=== PATIENT | female | born 1950 | race Caucasian/White ===

== ENCOUNTER 2020-09-16 08:24 | Inpatient (IN) ==
[2020-09-16] MEDS ORDERED: ONDANSETRON INJ 2 MG/ML 2 ML VIAL IV STA ×2 (08:52→10:36)
[2020-09-16] MEDS ORDERED: MECLIZINE HCL 25 MG TAB PO STA (09:10)
[2020-09-16] MEDS ORDERED: SODIUM CHLORIDE 0.9% 1000ML 1,000 ML IV SCH (09:11)
[2020-09-16 09:17] LABS: Basophils # (auto) 0.02 K/uL (0-0.2); Basophils % (auto) 0.1 %; Eosinophils # (auto) 0.01 K/uL (0-0.5); Eosinophils % (auto) 0.1 %; Hematocrit (blood only) 41.3 % (37-47); Hemoglobin 14.4 g/dL (12.0-16.0); Immature Granulocytes # (auto) 0.03 K/uL (0.00-0.02); Immature Granulocytes % (auto) 0.2 %; Lymphocytes # (auto) 1.03 K/uL (1.2-3.4); Lymphocytes % (auto) 6.8 %; Mean Corpuscular Hgb Conc 34.9 g/dL (32-36); Mean Corpuscular Volume 100.2 fL (80-100); Mean Platelet Volume 10.6 fL (7.4-10.4); Monocytes # (auto) 0.47 K/uL (0.11-0.59); Monocytes % (auto) 3.1 %; Neutrophils # (auto) 13.53 K/uL (1.4-6.5); Neutrophils % (auto) 89.7 %; Platelet Count 192 K/uL (130-400); RDW Coefficient of Variation 12.1 % (11.5-14.5); RDW Standard Deviation 43.9 fL (36.4-46.3); Red Blood Count 4.12 M/uL (4.2-5.4); White Blood Count 15.09 K/uL (4.8-10.8)
--- NOTE | 2020-09-16 09:28 | CT Scan Report ---
HEAD CT NONCONTRAST CT DOSE: 614.27 mGy.cm HISTORY: dizziness, nausea, fall w/ head trauma, no LOC TECHNIQUE: Multiaxial CT images of the head were performed without the use of intravenous contrast. A utomated exposure control was utilized for this study. A dose lowering technique was utilized adheri ng to the principles of ALARA. Comparison: None. Findings: The paranasal sinuses and mastoid air cells are clear. The calvarium and skull base are int act. There is no mass, hematoma, midline shift, acute infarct. White matter hypodensity is nonspecifi c but suggestive of microvascular ischemic change. The ventricles and sulci demonstrate mild age-rela robert involutional changes. Mild left frontal scalp swelling. Impression: No acute intracranial abnormality. Mild left frontal scalp swelling. ACT 112: Negative or not required by law. Electronically signed by: Julien Castro M.D. 09/16/2020 9:26 AM
[2020-09-16 09:31] LABS: Alanine Aminotransferase 56 U/L (12-78); Albumin Level 3.7 gm/dl (3.4-5.0); Aspartate Aminotransferase 110 U/L (15-37); BUN Creatinine Ratio 17.7 (10-20); Blood Urea Nitrogen 19 mg/dl (7-18); Calcium 9.5 mg/dl (8.5-10.1); Carbon Dioxide 25 mmol/L (21-32); Chloride 96 mmol/L (98-107); Creatinine Clr Calc Pharmacy 36.7 ml/min; Est GFR (African American) 63.6; Est GFR (Non-African American) 54.9; Glucose 193 mg/dl (70-99); Potassium 3.3 mmol/L (3.5-5.1); Sodium 135 mmol/L (136-145)
[2020-09-16 09:35] LABS: Albumin Globulin Ratio 1.1 (0.9-2); Alkaline Phosphatase 122 U/L (45-117); Bilirubin,Total 1.7 mg/dl (0.2-1); Globulin 3.5 gm/dl (2.5-4.0); Total Protein 7.2 gm/dl (6.4-8.2); Troponin I < 0.015 ng/ml (0-0.045)
[2020-09-16] MEDS ORDERED: POTASSIUM CHLORIDE CRTAB 20 MEQ TABCR PO STA (09:48)
--- NOTE | 2020-09-16 10:09 | Emergency Department Note ---
General (ED) Blank Date of Service September 16, 2020 ED Visit Note I personally saw, interviewed, and examined the patient. Patient's case was discussed with Dr. Sharif, ED attending, and I assisted with MDM. Please see attending documentation for full details. Resident Activity Tracking Resident Involvement: Resident Care Provided Care Provided: Adult ED
--- NOTE | 2020-09-16 10:11 | Emergency Department Note ---
History of Present Illness General Chief complaint: Fall Stated complaint: fall/ head pain Time Seen by Provider: 09/16/20 08:39 Source: patient Mode of arrival: EMS Limitations: no limitations History of Present Illness Provider complaint: Dizziness Maximum Pain Intensity: 2 This is a 69-year-old female who presents to the ED with a chief complaint of acute dizziness. The patient states that her symptoms started around 2 AM this morning. She had about 10 episodes of vomiting associated with the vertigo and spinning sensation. She states that she fell and her head hit her head on the wa ll as well. She also reported having 1 black stool this morning. The patient continues to feel dizzy. She states that her symptoms are worse if she moves her head. She still feels nauseated. Denies any visual changes. No focal neurologic deficits. She has had similar episodes in the past and she states that she has had work-ups for this and nothing was ever found. Home Medications Home Medications Medication Instructions Recorded Confirmed Type cyanocobalamin (vitamin B-12) 1,000 mcg PO PM 09/16/20 09/16/20 History [Vitamin B-12] escitalopram oxalate 20 mg PO PM 09/16/20 09/16/20 History folic acid 1 mg PO PM 09/16/20 09/16/20 History levothyroxine 75 mcg PO QAM 09/16/20 09/16/20 History mirtazapine 15 mg PO HS 09/16/20 09/16/20 History Allergies Allergy/AdvReac Type Severity Reaction Status Date / Time No Known Allergies Allergy Unverified 09/16/20 09:39 Past Med/Surg History Social History Smoking Status: Former smoker Preferred Language: Uzbek Feels Safe at Home: Yes Review of Systems A total of 10 systems reviewed and were otherwise negative Physical Exam Vital Signs Vital Signs - 24 hr 09/16/20 08:34 09/16/20 09:29 09/16/20 09:31 Temperature 36.7 C Temperature Source Oral Pulse Rate 103 H 93 H Pulse Rate [Apical] 97 H Pulse Rate from SpO2 Sensor 91 H Pulse Rhythm [Apical] Irregular Respiratory Rate 12 19 14 Respiratory Effort / Characteristics Non-Labored Non-Labored Spontaneous Respiratory Depth Normal Normal Respiratory Pattern Regular Blood Pressure 128/85 135/90 Blood Pressure [Left Arm] 133/87 Blood Pressure Mean 99 107 Blood Pressure Mean [Left Arm] 102 Blood Pressure Position Lying Blood Pressure Position [Left Arm] Sitting Pulse Oximetry 99 97 98 Oxygen Delivery Method Room Air Room Air Sepsis Recent Fever Within 48 Hours No Sepsis New/Unexplained Change in Mental Status No Sepsis Action Taken by Nursing No Action Required 09/16/20 10:00 09/16/20 10:30 09/16/20 11:00 Temperature Temperature Source Pulse Rate 89 108 H 99 H Pulse Rate [Apical] Pulse Rate from SpO2 Sensor 88 99 H 98 H Pulse Rhythm [Apical] Respiratory Rate 17 21 17 Respiratory Effort / Characteristics Respiratory Depth Respiratory Pattern Blood Pressure 127/79 126/81 130/83 Blood Pressure [Left Arm] Blood Pressure Mean 89 97 92 Blood Pressure Mean [Left Arm] Blood Pressure Position Blood Pressure Position [Left Arm] Pulse Oximetry 98 96 97 Oxygen Delivery Method Sepsis Recent Fever Within 48 Hours Sepsis New/Unexplained Change in Mental Status Sepsis Action Taken by Nursing VITAL SIGNS: were reviewed as above. GENERAL:Non-toxic in appearance. SKIN: Warm dry and pink. HEAD: Normocephalic with a contusion to the left frontal area. OROPHARYNX: Is clear and moist NECK: Supple without lymphadenopathy or meningismus. LUNGS: Are clear. HEART: Regular rate and rhythm. ABDOMEN: Soft and nontender. EXTREMITIES: Warm and well perfused. NEUROLOGICALLY: Awake alert and oriented without focal deficit. Cranial nerves 2-12 are intact. There is no pronator drift. Cerebellar testing is within normal limits. There is no nystagmus. There is no facial droop. Speech is clear. Vision is grossly normal. MUSCULOSKELETAL: Good muscle tone. No evidence of trauma. Strength is symmetric. Stool was tested. It was light brown and trace guaiac positive. ALL NURSING NOTES WERE REVIEWED. Course Administered Medications Discontinued Medications Sodium Chloride (Nss 1000ml) 1,000 mls @ 999 mls/hr IV .Q1H1M LILY Stop: 09/16/20 10:11 Last Infusion: 09/16/20 11:03 Dose: 0 mls/hr Documented by: [id number] Admin: 09/16/20 09:25 Dose: 999 mls/hr Documented by: [id number] Lorazepam (Ativan) 1 mg in 2 mls @ 2 mls/min IV NOW STA Stop: 09/16/20 10:37 Last Admin: 09/16/20 11:00 Dose: 2 mls/min Documented by: [id number] Meclizine HCl (Meclizine Hcl 25 Mg Tab) 25 mg PO NOW STA Stop: 09/16/20 09:11 Last Admin: 09/16/20 09:27 Dose: 25 mg Documented by: [id number] Ondansetron HCl (Ondansetron Inj 2 Mg/Ml 2 Ml Vial) 4 mg IV NOW STA Stop: 09/16/20 08:53 Last Admin: 09/16/20 09:27 Dose: 4 mg Documented by: [id number] Ondansetron HCl (Ondansetron Inj 2 Mg/Ml 2 Ml Vial) 4 mg IV NOW STA Stop: 09/16/20 10:37 Last Admin: 09/16/20 11:00 Dose: 4 mg Documented by: [id number] Potassium Chloride (Potassium Chloride 20 Meq Tabcr) 20 meq PO NOW STA Stop: 09/16/20 09:49 Last Admin: 09/16/20 10:15 Dose: 20 meq Documented by: [id number] Medical Decision Making Differential Diagnosis Differential includes acute coronary syndrome, myocardial infarction, CVA, TIA, anemia, infection, pneumonia, UTI, pyelonephritis, poor nutrition, dehydration, electrolyte disturbance,hypoglycemia. Medical Records Attestation: I reviewed the patient's medical records. Home Medications Current Medication List: was personally reviewed by me Laboratory Data Attestation: I reviewed the patient's lab results. Result diagrams: 09/16/20 08:43 09/16/20 08:43 Lab Results 09/16/20 09/16/20 09/16/20 Range/Units 08:43 08:43 11:20 WBC 15.09 H (4.8-10.8) K/uL RBC 4.12 L (4.2-5.4) M/uL Hgb 14.4 (12.0-16.0) g/dL Hct 41.3 (37-47) % MCV 100.2 H (80-100) fL MCH 35.0 H (25-34) pg MCHC 34.9 (32-36) g/dL RDW Std Deviation 43.9 (36.4-46.3) fL RDW Coeff of Alfredo 12.1 (11.5-14.5) % Plt Count 192 (130-400) K/uL MPV 10.6 H (7.4-10.4) fL Immature Gran % (Auto) 0.2 % Neut % (Auto) 89.7 % Lymph % (Auto) 6.8 % [place] % (Auto) 3.1 % Eos % (Auto) 0.1 % Baso % (Auto) 0.1 % Neut # (Auto) 13.53 H (1.4-6.5) K/uL Lymph # (Auto) 1.03 L (1.2-3.4) K/uL [place] # (Auto) 0.47 (0.11-0.59) K/uL Eos # (Auto) 0.01 (0-0.5) K/uL Baso # (Auto) 0.02 (0-0.2) K/uL Immature Gran # (Auto) 0.03 H (0.00-0.02) K/uL Sodium 135 L (136-145) mmol/L Potassium 3.3 L (3.5-5.1) mmol/L Chloride 96 L (98-107) mmol/L Carbon Dioxide 25 (21-32) mmol/L Anion Gap 14.0 H (3-11) BUN 19 H (7-18) mg/dl Creatinine 1.05 (0.6-1.2) mg/dl Est Cr Clr Drug Dosing 36.7 ml/min Est GFR ( Amer) 63.6 Est GFR (Non-Af Amer) 54.9 BUN/Creatinine Ratio 17.7 (10-20) Glucose 193 H (70-99) mg/dl Calcium 9.5 (8.5-10.1) mg/dl Total Bilirubin 1.7 H (0.2-1) mg/dl AST 110 H (15-37) U/L ALT 56 (12-78) U/L Alkaline Phosphatase 122 H (45-117) U/L Troponin I < 0.015 (0-0.045) ng/ml Total Protein 7.2 (6.4-8.2) gm/dl Albumin 3.7 (3.4-5.0) gm/dl Globulin 3.5 (2.5-4.0) gm/dl Albumin/Globulin Ratio 1.1 (0.9-2) COVID-19 Eval Order Covid19 [facility] Data Radiologist's Impression: CT scan of the head: Impression: No acute intracranial abnormality. Mild left frontal scalp swelling. XR chest 1V portable HISTORY: Cough. admission COMPARISON: None. FINDINGS: The lungs are clear. Cardiac silhouette is normal in size. No pleural effusions. No pneumothorax. IMPRESSION: No acute process. ECG Data Attestation: I personally reviewed and interpreted this ECG as follows: Indication: + weakness Rate (beats per minute): 104 Rhythm: + sinus tachycardia ECG ST segments: no ST elevation ECG Findings: no PVCs MDM Narrative The patient presents with dizziness and vertigo as detailed above. A CT scan of the brain was negative for acute process. Chest x-ray was negative for acute process. EKG shows a normal sinus rhythm. Blood work was relatively unremarkable. She did have a white blood cell count elevation but this is likely related to her vomiting. The patient had a glucose of 193. Her troponin was negative. The patient was treated with p.o. meclizine, IV Zofran, IV fluids, p.o. potassium as well as IV Zofran x2. The patient remained severely symptomatic will be seen by the hospitalist for further evaluation and care. Impression & Plan Vertigo Discharge Plan Visit Data Chief Complaint: Fall Stated Complaint: fall/ head pain ED Provider: Bal Sharif ED Midlevel Provider: Marleen Sidhu Discharge Problem: Vertigo Patient Disposition: Being Evaluated by Hospitalist Forms Stand Alone Forms: [facility] [place] [employer] Prescriptions Prescriptions: No Action cyanocobalamin (vitamin B-12) [Vitamin B-12] 1,000 mcg Tablet 1,000 mcg PO PM RF: 0 levothyroxine 75 mcg Tablet 75 mcg PO QAM RF: 0 folic acid 1 mg Tablet 1 mg PO PM RF: 0 mirtazapine 15 mg Tablet 15 mg PO HS RF: 0 escitalopram oxalate 20 mg Tablet 20 mg PO PM RF: 0 Referrals Referrals: Kalie Vitale D.O. [Primary Care Provider] -
[2020-09-16] MEDS ORDERED: LORazepam 1 MG/2 ML VIAL IV STA (10:36)
--- NOTE | 2020-09-16 11:22 | XRay Report ---
XR chest 1V portable HISTORY: Cough. admission COMPARISON: None. FINDINGS: The lungs are clear. Cardiac silhouette is normal in size. No pleural effusions. No pneumot horax. IMPRESSION: No acute process. ACT 112: Negative or not required by law. Electronically signed by: Julien Castro M.D. 09/16/2020 11:20 AM
[2020-09-16] MEDS ORDERED: ACETAMINOPHEN 1000 MG/100 ML IV IV ONE (11:52)
--- NOTE | 2020-09-16 11:55 | History & Physical Report ---
Date of Service September 16, 2020 Assessment & Plan (1) Melena: This is a 69yo F with a PMH of hypothyroidism, MDD, history of recurrent syncope and vertigo and other medical problems as below who presents from home with sudden onset dizziness, nausea, vomiting and one episode of melanotic stool at 0200. -One episode of melanotic stool this morning. Occasional use of ibuprofen. -Afebrile, mild leukocytosis of 15, hgb stable at 14.4, BUN 19, Cr 1.05 -Protonix 40mg IV push BID, gentle fluids, recheck H&H at 1700, NPO @ [place], routine GI consult (2) Nausea and vomiting: Sudden onset this morning after fall. 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 Orthostatic vitals pending. Monitor on telemetry, fall precautions, PT/OT evaluation -Does endorse taking Ol[place] every morning for neuropathic pain in right hip. Possibly contributing to near syncope -Give cautious amount of IV fluid (6) Leukocytosis: WBC of 15, likely reactive 2/2 fall. Afebrile, no evidence of infection on chest x-ray or UA. No abdominal pain. Trend daily CBC (7) Hypothyroidism: Continue levothyroxine (8) Depression: Continue SSRI DVT Ppx: SCDs Code status: FULL PCP: Iam (Brooks) Dispo: Admitted to [facility]. Discharge planning ordered Patient seen in collaboration with Dr. Mathis. Please see addendum. History of Present Illness Chief Complaint: dizziness, N/V/D Primary Care Provider: Kalie Vitale This is a 69yo F with a PMH of hypothyroidism, MDD, history of recurrent syncope and vertigo and other medical problems as below who presents from home with sudden onset dizziness, nausea, vomiting and one episode of melanotic stool at 0200. Patient got up during the night to get a glass of water around 0200 and developed sudden onset dizziness described as "wooziness", where her legs collapsed from under her and she fell to the ground, hitting her head. Denies loss of consciousness. Also at this time, developed sudden onset nausea with multiple bouts of vomiting that have continued since then. Emesis is bilious, without any visible blood. Also had a large bout of diarrhea at this time that was black and tarry. States she has this about once a week but has not undergone work-up for it. Not associated with abdominal pain. Denies any bright red blood in stool or on toilet paper. History of EGD in Jul 2017 with normal esophagus, irregular Z-line at 40cm from incisors, small hiatal hernia and normal stomach. Former smoker but quit in 2018. Does endorse using 400 mg Advil for headaches a few times per week. Endorses 1-2 glasses of wine per night. Denies fever, chills, visual changes, chest pain, palpitations, shortness of breath, abdominal pain or dysuria. 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 Has been seen by both neurology and cardiology in Nov 2019 for work up of syncope with normal brain MRI, routine EEF and ZIO testing revealing multiple short runs of PSVT which was later evaluated by cardiology and not thought to be associated with near syncope. Cardiology recommended that she get sleep medicine evaluation due to insomnia and increased salt and fluid intake. Does endorse taking Ol[place] every morning for neuropathic pain in right hip. Allergies Allergy/AdvReac Type Severity Reaction Status Date / Time No Known Allergies Allergy Unverified 09/16/20 09:39 Home Medications Home Medications Medication Instructions Recorded Confirmed Type cyanocobalamin (vitamin B-12) 1,000 mcg PO PM 09/16/20 09/16/20 History [Vitamin B-12] escitalopram oxalate 20 mg PO PM 09/16/20 09/16/20 History folic acid 1 mg PO PM 09/16/20 09/16/20 History hydrocodone-acetaminophen 1 tab PO DAILY PRN 09/16/20 09/16/20 History levothyroxine 75 mcg PO QAM 09/16/20 09/16/20 History mirtazapine 15 mg PO HS 09/16/20 09/16/20 History Past Med/Surg History Medical History (Updated 09/16/20 @ 14:54 by Patricia Brito PA-C) Depression Hypothyroidism Orthostatic hypotension Surgical History H/O tubal ligation History of appendectomy History of tonsillectomy Family History Other Alzheimer disease Myocardial infarction Social History Smoking Status: Former smoker Years Smoked: 31; Smoking End Date: 2018; Hx Alcohol Use: Yes Alcohol type: wine Alcohol Intake Frequency: 4 or More x per/Week Hx Substance Use: No Preferred Language: Yi Communication Ability: Effective Polysomnograph Tech Required: No Beliefs That Will Affect Care: Hoahaoism Current Living Situation: Alone Other Information That Helps Us Care for You: No Feels Safe at Home: Yes Review of Systems Review of Systems: At least ten systems reviewed and negative except as noted in the HPI. Physical Exam Physical Exam: General Appearance: WD/WN, vitals as above, thin, sitting up in bed, pleasant Head: normocephalic, atraumatic Eyes: normal inspection, PERRL, conjunctivae normal, anicteric sclerae ENT: external ear and nose normal, oropharynx normal Neck: normal visual inspection, trachea midline, no thyromegaly Respiratory: normal respiratory effort, lungs clear to auscultation, no wheeze, rales, rhonchi. No accessory muscle use Cardiovascular: regular rate, rhythm, no murmur appreciated, normal peripheral pulses, no BLE edema. Vessels: no JVD Chest: normal inspection of chest Abdomen/GI: normal bowel sounds, soft, nontender, no hepatosplenomegaly Extremities/Musculoskeletal: no cyanosis or clubbing, extremities motor strengt h 5/5 Neurologic: PERRL, EOMI, accommodation nl, no face palsy, no dysarthria, CN's II-XI intact bilaterally and moves all extremities Psychiatric: A+Ox3, + anxious Skin: no rashes, normal color, warm/dry Results & Data Results & Data ([facility]) Vital Signs (Past 12 Hours) Vital Signs Temp Pulse Pulse Resp BP BP Pulse Ox 09/16/20 11:30 95 H 25 H 112/67 96 09/16/20 11:00 99 H 17 130/83 97 09/16/20 10:30 108 H 21 126/81 96 09/16/20 10:00 89 17 127/79 98 09/16/20 09:31 93 H 14 135/90 98 09/16/20 09:29 97 H 19 133/87 97 09/16/20 08:34 36.7 C 103 H 12 128/85 99 Laboratory Results Short CBC 09/16/20 Range/Units 08:43 WBC 15.09 H (4.8-10.8) K/uL Hgb 14.4 (12.0-16.0) g/dL Hct 41.3 (37-47) % Plt Count 192 (130-400) K/uL BMP 09/16/20 08:43 Sodium 135 L Potassium 3.3 L Chloride 96 L Carbon Dioxide 25 BUN 19 H Creatinine 1.05 Glucose 193 H Calcium 9.5 Cardiac Enzymes 09/16/20 Range/Units 08:43 Troponin I < 0.015 (0-0.045) ng/ml Liver Function 09/16/20 Range/Units 08:43 Total Bilirubin 1.7 H (0.2-1) mg/dl AST 110 H (15-37) U/L ALT 56 (12-78) U/L Alkaline Phosphatase 122 H (45-117) U/L Albumin 3.7 (3.4-5.0) gm/dl Diagnostic Findings CT head: Impression: No acute intracranial abnormality. Mild left frontal scalp swelling. CXR: IMPRESSION: No acute process. ECG Rhythm: sinus tachycardia Supervising Physician Co-Signing Physician Notes Attending addendum: The patient was seen and examined in emergency room in presence of the daughter She complains to have dizziness with ambulation and has been happening mostly at nighttime She has nausea with dizziness and vomiting This morning she has had large soft black tarry bowel movement She denies any associated symptoms with dizziness and denies any abdominal pain. On examination Lying in bed, lean and thin without any acute distress. Hemodynamically stable-orthostatic vitals have not been taken yet Chest-clear to auscultate bilaterally Heart-S1-S2 regular Abdomen-benign Extremities-negative for any edema [employer]-alert, awake and oriented x3. Generally weak but no focal sensory and motor deficit appreciated Admission labs, imaging studies and EKG reviewed Dizziness with ambulation likely secondary to postural hypotension Intermittent melena without any abdominal pain but history of nausea and vomiting Elevated AST likely secondary to use of alcohol and her symptoms of nausea vomiting could be secondary to alcoholic gastritis History of a syncopal episode without any significant findings as an outpatient work-up Agree with assessment and plan as outlined above by BEN Olsen DR
[2020-09-16] MEDS ORDERED: PANTOPRAZOLE BOLUS/DRIP 1 EA IV STA ×2 (12:15→14:38)
[2020-09-16] MEDS ORDERED: PANTOprazole 80 MG in DEXTROSE 5% 100 ML IV ONE ×3 (12:45→14:38)
[2020-09-16] MEDS ORDERED: PANTOprazole 40 MG in DEXTROSE 5% 100 ML IV SCH ×2 (13:00→14:10)
[2020-09-16 14:10] LABS: Appearance Urine Clear (Clear); Bilirubin Urine Negative (Negative); Blood Urine Negative (Negative); Color Urine Orange; Glucose Urine UA Negative (Negative); Ketones Urine Trace (Negative); Leukocyte Esterase Urine Negative (Negative); Nitrite Urine Negative (Negative); Protein Urine Negative (Negative); Specific Gravity Urine 1.019 (1.000-1.030); Urobilinogen Urine Negative (Negative); pH Urine 5.5 (4.5-7.5)
[2020-09-16] MEDS ORDERED: ONDANSETRON INJ 2 MG/ML 2 ML VIAL IV PRN (14:10)
[2020-09-16 15:02] LABS: Amphetamines+Metham, Urine Neg (Neg); Barbiturates, Urine Neg (Neg); Benzodiazepine, Urine Neg (Neg); Cocaine, Urine Neg (Neg); MDMA (Ecstacy), Urine Neg (Neg); Methadone, Urine Neg (Neg); Opiate, Urine Neg (Neg); Phencyclidine, Urine Neg (Neg)
[2020-09-16] MEDS: NSS + 20MEQ KCL 20 MEQ/1,000 ML BAG IV SCH (15:30)
[2020-09-16] MEDS: PANTOprazole 40 MG in DEXTROSE 5% 100 ML IV SCH ×2 (15:31→20:20)
[2020-09-16 16:43] LABS: Hepatitis B Surface Antigen Neg (Neg)
[2020-09-16 17:03] LABS: Hematocrit (blood only) 33.4 % (37-47); Hemoglobin 11.5 g/dL (12.0-16.0)
[2020-09-16 17:12] LABS: Hepatitis C IgG 13Yrs+Old_Rflx Neg (Neg)
[2020-09-16] MEDS: FOLIC ACID 1 MG TAB PO SCH (20:17)
[2020-09-16] MEDS: MIRTAZAPINE TAB 15 MG TAB PO SCH (20:17)
[2020-09-16] MEDS: CYANOCOBALAMIN 500 MCG TABLET (VITAMIN B-12) PO SCH (20:17)
[2020-09-16] MEDS: ESCITALOPRAM OXALATE 20 MG TAB PO SCH (20:17)
[2020-09-16] MEDS ORDERED: PANTOprazole 40 MG in SYRINGE 0 ML IV SCH (21:00)
[2020-09-16] MEDS: HYDROCODONE/ACETAMOPHEN 5/325MG TAB PO PRN (23:18)
[2020-09-17] MEDS: NSS + 20MEQ KCL 20 MEQ/1,000 ML BAG IV SCH ×2 (01:06→11:17)
[2020-09-17] MEDS: PANTOprazole 40 MG in DEXTROSE 5% 100 ML IV SCH ×4 (01:07→18:19)
--- NOTE | 2020-09-17 05:17 | Electrocardiogram Report ---
Test Reason : Blood Pressure : / mmHG Vent. Rate : 104 BPM Atrial Rate : 104 BPM P-R Int : 144 ms QRS Dur : 070 ms QT Int : 356 ms P-R-T Axes : 080 051 042 degrees QTc Int : 468 ms Sinus tachycardia Right atrial enlargement Nonspecific ST and T wave abnormality No previous ECGs available Confirmed by Tim Alexander ([id number]) on 09/17/2020 5:17:00 AM Referred By: Confirmed By:Tim Alexander
[2020-09-17] MEDS: LEVOTHYROXINE SODIUM 75 MCG TABLET PO SCH (05:55)
[2020-09-17] MEDS ORDERED: MoRPHine SULFATE 4 MG/ML 1 ML CARP\\VIAL IV STA (06:55)
[2020-09-17 07:36] LABS: Albumin Globulin Ratio 1.1 (0.9-2); Albumin Level 2.8 gm/dl (3.4-5.0); BUN Creatinine Ratio 15.9 (10-20); Bilirubin,Total 0.9 mg/dl (0.2-1); Calcium 8.3 mg/dl (8.5-10.1); Creatinine Clr Calc Pharmacy 59.9 ml/min; Est GFR (African American) 110.5; Est GFR (Non-African American) 95.4; Globulin 2.6 gm/dl (2.5-4.0); Potassium 3.7 mmol/L (3.5-5.1); Total Protein 5.4 gm/dl (6.4-8.2)
--- NOTE | 2020-09-17 07:48 | Ultrasound Report ---
ABDOMINAL ULTRASOUND, RIGHT UPPER QUADRANT HISTORY: Elevated LFTs.. COMPARISON: None. FINDINGS: Pancreas: Pancreas is not well visualized. No main pancreatic duct dilatation. Liver: The liver is echogenic consistent with fatty change. Gallbladder: No gallbladder wall thickening. No gallstones. Mildly distended. CBD: Distended common bile duct measuring up to 1.3 cm. Right kidney: No hydronephrosis. IMPRESSION: 1. Distended common bile duct and a mildly distended gallbladder. This could represent an occult obst ructing distal common bile duct lesion/stone. Follow-up MRCP recommended for further evaluation. 2. Hepatic steatosis. 3. The pancreas is not well visualized. ACT 112: Negative or not required by law. Electronically signed by: Julien Castro M.D. 09/17/2020 7:47 AM
[2020-09-17] MEDS ORDERED: INDOMETHACIN 50 MG SUPP PR ONE ×2 (09:01→13:45)
--- NOTE | 2020-09-17 09:07 | Gastrointestinal Consultation ---
Date of Consultation September 17, 2020 Assessment & Plan (1) Melena: (2) Nausea and vomiting: (3) LFT elevation: (4) Dilation of biliary tract: Pt is a 69 y/o female w recurrent syncope, dizziness, presented after a fall. At time of admission, reported n/v, melanotic stool which cleared ye ster afternoon. FOBT was positive, mild anemia after hydration (dilutional), normal BUN. She is also noted to have elevated LFTs, RUQ u/s showed CBD dilation ? distal obstruction (stone vs lesion). - Keep NPO - Continue PPI gtt - Schedule EGD/EUS +/- ERCP in OR by Dr. Ramires today Supervising Physician Co-Signing Physician Notes I performed a history and physical examination of the patient today, including specifically on physical exam - soft abdomen. I have discussed the patient's management with the advanced practitioner. Please refer to the nurse practitioner's note for the documented findings and plan of care. Anemia, ? melena and dilated CBD, plan for EGD/EUS/ERCP History of Present Illness Reason for Consultation: Melena, n/v Requesting Physician: Dr. Nadiya Herrera Attending Physician: Dr. Dallas Ramires History of Present Illness Pt is a 69 y/o female who presented to ED yesterday w c/o dizziness, recurrent syncope and after a fall. She admitted to have n/v and dark tarry stools on admission. However stools later yesterday was small and brown. H/H initially no rmal -> 11/33. BUN/Cr normal. FOBT was positive. Noted LFTs were up. RUQ u/s showed distended CBD at 1.3, mildly distended gallbladder ? occult obstruction of distal CBD (lesion vs stone). On exam she is not having abd tenderness, no fevers overnight no jaundice. EGD 2017: hiatal hernia, esophagus dilated to 48Fr Colonoscopy 2002, 2007, 2012: sigmoid diverticulosis Allergies Allergy/AdvReac Type Severity Reaction Status Date / Time No Known Allergies Allergy Unverified 09/16/20 09:39 Home Medications Home Medications Medication Instructions Recorded Confirmed Type cyanocobalamin (vitamin B-12) 1,000 mcg PO PM 09/16/20 09/16/20 History [Vitamin B-12] escitalopram oxalate 20 mg PO PM 09/16/20 09/16/20 History folic acid 1 mg PO PM 09/16/20 09/16/20 History hydrocodone-acetaminophen 1 tab PO DAILY PRN 09/16/20 09/16/20 History levothyroxine 75 mcg PO QAM 09/16/20 09/16/20 History mirtazapine 15 mg PO HS 09/16/20 09/16/20 History Patient History Medical History Depression Hypothyroidism Orthostatic hypotension Surgical History H/O tubal ligation History of appendectomy History of tonsillectomy Family History Other Alzheimer disease Myocardial infarction Social History Smoking Status: Former smoker Years Smoked: 31; Smoking End Date: 2018; Hx Alcohol Use: Yes Alcohol type: wine Alcohol Intake Frequency: 4 or More x per/Week Hx Substance Use: No Preferred Language: Citizen Of The [place] Communication Ability: Effective Farm Machine Tender Required: No Beliefs That Will Affect Care: Taoist marital status: Current Living Situation: Alone How many Children do You have: 1 Other Information That Helps Us Care for You: No Feels Safe at Home: Yes Review of Systems Review of Systems: All systems reviewed & are unremarkable except as noted in HPI & below Physical Exam Constitutional: WD/WN, vitals as above well groomed, cooperative and comfortable Eyes: PERRL, conjunctivae normal, anicteric sclerae ENMT: external ear and nose normal, oropharynx normal Respiratory: normal respiratory effort, lungs clear to auscultation Cardiovascular: RRR, no murmur, no edema Gastrointestinal (Abdomen): normal bowel sounds, soft, nontender, no hepatosplenomegaly Skin: no rashes, warm and dry no jaundice Psychiatric: A+Ox3, euthymic affect Lymphatic: no lymphedema Results & Data ([facility]) Vital Signs (Past 12 Hours) Vital Signs Temp Pulse Pulse Resp BP Pulse Ox 09/17/20 07:31 36.4 C L 84 18 130/79 96 09/17/20 04:00 36.7 C 89 16 129/80 95 09/16/20 22:24 89 09/16/20 22:00 36.6 C 80 18 123/80 98
--- NOTE | 2020-09-17 09:34 | Hospitalist Progress Note ---
Date of Service September 17, 2020 Assessment & Plan (1) GI bleed: (2) Nausea and vomiting: (3) Melena: 69yo F with a PMH of hypothyroidism, MDD, history of recurrent syncope and vertigo and other medical problems as below who presents from home with sudden onset dizziness, nausea, vomiting and one episode of melanotic stool at 0200. One episode of melanotic stool on morning of admission. Occasional use of ibuprofen. Hb was 14.4 on admission and dropped to 11.5 Monitor Hb. Will transfuse prn to keep Hb>7 or with hemodynamic instability with active bleed Currently hemodynamically stable Continue IV PPI Will follow up GI evaluation. 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 deficiency for which she is now supplemented -Work up in 12/08: normal brain MRI, routine EEF and ZIO testing revealing multiple short runs of PSVT which was later evaluated by cardiology and not thought to be associated with near syncope -Likely orthostatic hypotension in setting of GI bleed Monitor on telemetry Continue IVF for now Fall precautions (7) Leukocytosis: WBC of 15, likely reactive No fevers or other signs of infection Monitor for now (8) Hypothyroidism: Continue levothyroxine (9) Depression: Continue SSRI DVT Ppx: SCDs Code status: FULL PCP: [place] ([place]) Admission and Anticipated Discharge Date Admission Date: September 16, 2020 Subjective Patient seen and examined Complains of dizziness on standing and mild headache Denied any palpitations this morning Denied any chest pain, cough, SOB Reported she might have had another BM since admission that wasnt as dark Reports generalized weakness No fevers/chills/nausea or vomiting today Physical Exam Constitutional: + well hydrated; no acute distress Thin lady Eyes: PERRL, conjunctivae normal, anicteric sclerae ENMT: external ear and nose normal, oropharynx normal Respiratory: normal respiratory effort, lungs clear to auscultation Cardiovascular: RRR, no murmur, no edema Gastrointestinal (Abdomen): normal bowel sounds, soft, nontender, no hepatosplenomegaly Musculoskeletal: no cyanosis or clubbing, extremities motor strength 5/5 Neurologic: PERRL, EOMI, accommodation nl, no face palsy, no dysarthria Psychiatric: A+Ox3, euthymic affect Results & Data Results & Data ([facility]) Vital Signs (Past 12 Hours) Vital Signs Temp Pulse Pulse Resp BP Pulse Ox 09/17/20 07:31 36.4 C L 84 18 130/79 96 09/17/20 04:00 36.7 C 89 16 129/80 95 09/16/20 22:24 89 09/16/20 22:00 36.6 C 80 18 123/80 98 Laboratory Results Laboratory Results - last 24 hr 09/16/20 09/16/20 09/16/20 08:43 08:43 13:30 Hgb Hct Sodium Potassium Chloride Carbon Dioxide Anion Gap BUN Creatinine Est Cr Clr Drug Dosing Est GFR ( Amer) Est GFR (Non-Af Amer) BUN/Creatinine Ratio Glucose Calcium Total Bilirubin AST ALT Alkaline Phosphatase Troponin I Total Protein Albumin Globulin Albumin/Globulin Ratio Urine Color [place] Urine Appearance Clear Urine pH 5.5 Ur Specific [place] 1.019 Urine Protein Negative Urine Glucose (UA) Negative Urine Ketones Trace H Urine Blood Negative Urine Nitrite Negative Urine Bilirubin Negative Urine Urobilinogen Negative Ur Leukocyte Esterase Negative Stool Occult Bld Scrn Urine Opiates Screen Ur Methadone, Qual Urine Barbiturates Ur Phencyclidine (PCP) U Amphetamin/Meth Scrn MDMA (Ecstasy) Screen U Benzodiazepines Scrn Ur Cocaine Metabolite U Marijuana (THC) Screen Hepatitis A IgM Ab Pending Hep Bs Antigen Neg Hep B Core IgM Ab Pending Hepatitis C Ab Screen Hepatitis C Antibody Neg 09/16/20 09/16/20 09/16/20 13:30 14:45 14:48 Hgb Hct Sodium Potassium Chloride Carbon Dioxide Anion Gap BUN Creatinine Est Cr Clr Drug Dosing Est GFR ( Amer) Est GFR (Non-Af Amer) BUN/Creatinine Ratio Glucose Calcium Total Bilirubin AST ALT Alkaline Phosphatase Troponin I < 0.015 Total Protein Albumin Globulin Albumin/Globulin Ratio Urine Color Urine Appearance Urine pH Ur Specific [place] Urine Protein Urine Glucose (UA) Urine Ketones Urine Blood Urine Nitrite Urine Bilirubin Urine Urobilinogen Ur Leukocyte Esterase Stool Occult Bld Scrn Positive A Urine Opiates Screen Neg Ur Methadone, Qual Neg Urine Barbiturates Neg Ur Phencyclidine (PCP) Neg U Amphetamin/Meth Scrn Neg MDMA (Ecstasy) Screen Neg U Benzodiazepines Scrn Neg Ur Cocaine Metabolite Neg U Marijuana (THC) Screen Neg Hepatitis A IgM Ab Hep Bs Antigen Hep B Core IgM Ab Hepatitis C Ab Screen Hepatitis C Antibody 09/16/20 09/17/20 09/17/20 16:37 06:10 06:10 Hgb 11.5 L Hct 33.4 L Sodium 141 Potassium 3.7 Chloride 110 H Carbon Dioxide 26 Anion Gap 5.0 BUN 9 D Creatinine 0.58 L D Est Cr Clr Drug Dosing 59.9 Est GFR ( Amer) 110.5 Est GFR (Non-Af Amer) 95.4 BUN/Creatinine Ratio 15.9 Glucose 84 Calcium 8.3 L Total Bilirubin 0.9 D AST 60 H ALT 34 Alkaline Phosphatase 85 Troponin I Total Protein 5.4 L D Albumin 2.8 L Globulin 2.6 Albumin/Globulin Ratio 1.1 Urine Color Urine Appearance Urine pH Ur Specific [place] Urine Protein Urine Glucose (UA) Urine Ketones Urine Blood Urine Nitrite Urine Bilirubin Urine Urobilinogen Ur Leukocyte Esterase Stool Occult Bld Scrn Urine Opiates Screen Ur Methadone, Qual Urine Barbiturates Ur Phencyclidine (PCP) U Amphetamin/Meth Scrn MDMA (Ecstasy) Screen U Benzodiazepines Scrn Ur Cocaine Metabolite U Marijuana (THC) Screen Hepatitis A IgM Ab Hep Bs Antigen Hep B Core IgM Ab Hepatitis C Ab Screen Neg Hepatitis C Antibody
[2020-09-17] MEDS ORDERED: ONDANSETRON INJ 2 MG/ML 2 ML VIAL ONE (13:26)
[2020-09-17] MEDS ORDERED: MIDAZOLAM HCL 1 MG/ML 2ML VIAL ONE (13:26)
[2020-09-17] MEDS ORDERED: PROPOFOL IV EMULSION 10 MG/ML 20 ML VIAL IV ONE (13:26)
[2020-09-17] MEDS ORDERED: fentaNYL citrate 100 MCG/2 ML VIAL ONE ×2 (13:26→16:02)
[2020-09-17] MEDS ORDERED: LIDOCAINE HCL 2% 2 ML VIAL/AMP(20MG/ML) INFIL ONE (13:26)
--- NOTE | 2020-09-17 14:15 | Anesthesiology Consultation ---
Date of Service September 17, 2020 Assessment & Plan Chart Review Chart Review: Acceptable Risk for Surgery Consults Requested none History Surgery Operation Date: 09/17/20 12:35 Proposed Procedures p Endoscopic Retrograde Cholangiopancreatogram - Dallas Ramires MD s Upper Endoscopic Ultrasonography - Dallas Ramires MD Operation Date: 09/17/20 16:00 Proposed Procedures p Esophagogastroduodenoscopy Dr Ramires - Dlalas Ramires MD Height/Weight Height: 5 ft 7 in Weight: 40.3 kg Allergies Allergy/AdvReac Type Severity Reaction Status Date / Time No Known Allergies Allergy Unverified 09/16/20 09:39 Medications Home Medications Medication Instructions Recorded Confirmed Last Taken cyanocobalamin (vitamin B-12) 1,000 mcg PO PM 09/16/20 09/16/20 09/15/20 [Vitamin B-12] escitalopram oxalate 20 mg PO PM 09/16/20 09/16/20 09/15/20 folic acid 1 mg PO PM 09/16/20 09/16/20 09/15/20 hydrocodone-acetaminophen 1 tab PO DAILY PRN 09/16/20 09/16/20 Unknown levothyroxine 75 mcg PO QAM 09/16/20 09/16/20 09/15/20 mirtazapine 15 mg PO HS 09/16/20 09/16/20 09/15/20 Active Medications Generic Name Dose Route Start Last Admin Trade Name Freq PRN Reason Stop Dose Admin Hydrocodone Bitart/Acetaminophen 1 tab 09/16/20 15:27 09/16/20 23:18 Hydrocodone/Acetamophen 5/325mg Tab PO 09/30/20 15:26 1 tab DAILY PRN Administration Pain Cyanocobalamin 1,000 mcg 09/16/20 21:00 09/16/20 20:17 Cyanocobalamin 500 Mcg Tablet (Vitamin B-12) PO 10/16/20 20:59 1,000 mcg PM LILY Administration Escitalopram Oxalate 20 mg 09/16/20 21:00 09/16/20 20:17 Escitalopram Oxalate 20 Mg Tab PO 10/16/20 20:59 20 mg PM LILY Administration Folic Acid 1 mg 09/16/20 21:00 09/16/20 20:17 Folic Acid 1 Mg Tab PO 10/16/20 20:59 1 mg PM LILY Administration Potassium Chloride/Sodium Chloride 20 meq in 1,000 mls @ 100 mls/hr 09/16/20 14:30 09/17/20 11:17 Normal Saline W/20 Meq Kcl IV 10/16/20 14:29 100 mls/hr .Q10H LILY Administration Pantoprazole Sodium 40 mg/ 100 mls @ 20 mls/hr 09/16/20 15:00 09/17/20 11:17 Dextrose IV 10/16/20 14:59 8 mg/hr Q5H LILY 20 mls/hr Administration 8 MG/HR Levothyroxine Sodium 75 mcg 09/17/20 06:30 09/17/20 05:55 Levothyroxine Sodium 75 Mcg Tablet PO 10/17/20 06:29 Not Given DAILYBB LILY Mirtazapine 15 mg 09/16/20 21:00 09/16/20 20:17 Mirtazapine Tab 15 Mg Tab PO 10/16/20 20:59 15 mg HS ILLY Administration NPO Date Last Intake of Fluids: 09/16/20 Time Last Intake of Fluids: 16:00 Date Last Intake of Solids: 09/15/20 Time Last Intake of Solids: 14:00 Past Medical History Medical History Depression Hypothyroidism Orthostatic hypotension Past Family History Family History Other Alzheimer disease Myocardial infarction Past Surgical History Surgical History H/O tubal ligation History of appendectomy History of tonsillectomy Social History Smoking Status: Former smoker Smoking End Date: 2018 Hx Alcohol Use: Yes Alcohol type: wine alcohol intake frequency: a few times a week Hx Substance Use: No Physical Exam Vital Signs Last Vital Signs Temp 36.7 C 09/17/20 14:01 Pulse 80 09/17/20 14:01 Resp 20 09/17/20 14:01 BP 142/85 H 09/17/20 14:01 Pulse Ox 78 L 09/17/20 14:01 Testing Laboratory Results 09/17/20 12:45 09/17/20 06:10 Urine Color [place] 09/16/20 13:30 Urine Appearance Clear (Clear) 09/16/20 13:30 Urine pH 5.5 (4.5-7.5) 09/16/20 13:30 Ur Specific [place] 1.019 (1.000-1.030) 09/16/20 13:30 Urine Protein Negative (Negative) 09/16/20 13:30 Urine Glucose (UA) Negative (Negative) 09/16/20 13:30 Urine Ketones Trace (Negative) H 09/16/20 13:30 Urine Nitrite Negative (Negative) 09/16/20 13:30 Ur Leukocyte Esterase Negative (Negative) 09/16/20 13:30 09/16/20 14:45 Escherichia coli Shiga Toxins Test - Preliminary Stool Stool Culture - Preliminary No Salmonella isolated to date, No Shigella isolated to date, No Campylobacter jejuni isolated to date.
[2020-09-17] MEDS ORDERED: ePHEDrine sulfate 50 MG/ML AMP IV PRN (14:17)
[2020-09-17] MEDS ORDERED: fentaNYL citrate 100 MCG/2 ML VIAL IV PRN (14:17)
[2020-09-17] MEDS ORDERED: DEXAMETHASONE SOD INJ 4 MG/ML VIAL IV PRN (14:17)
[2020-09-17] MEDS ORDERED: IOVERSOL 50ml IV ONE (14:17)
[2020-09-17] MEDS ORDERED: HYDROmorphone INJ 2 MG/ML SYR/VIAL IV PRN (14:17)
[2020-09-17] MEDS ORDERED: METOCLOPRAMIDE HCL INJ 5 MG/ML 2 ML VIAL IV PRN (14:17)
[2020-09-17] MEDS ORDERED: ONDANSETRON INJ 2 MG/ML 2 ML VIAL IV PRN (14:17)
[2020-09-17] MEDS ORDERED: ATROPINE SULFATE 0.1 MG/ML 10ML SYR IV PRN (14:17)
[2020-09-17] MEDS ORDERED: GLYCOPYRROLATE 0.2 MG/ML VIAL ONE (15:03)
[2020-09-17] MEDS ORDERED: NEOSTIGMINE METHYLSULFATE 5 MG/5 ML SYR ONE (15:03)
--- NOTE | 2020-09-17 16:09 | Operative Report ---
Post Operative Report Pre & Post Diagnosis Operation Date: 09/17/20 12:35 Pre-Op Diagnosis: Nausea/Vomiting, Melena Post-Op Diagnosis: Nausea/Vomiting, Melena Operation Date: 09/17/20 16:00 <No data on this case meets the specified criteria> I identified the patient and participated in the time-out.: Yes Procedure Operation Date: 09/17/20 12:35 Actual Procedures p Endoscopic Retrograde Cholangiopancreatogram(Not Applicable) - Dallas Ramires MD s Upper Endoscopic Ultrasonography(Not Applicable) - Dallas Ramires MD Operation Date: 09/17/20 16:00 <No data on this case meets the specified criteria> Surgeon Dallas Ramires MD Communications Marketing Intern none Estimated Blood Loss 0 Findings See Below (CBD sludge, CBD stent placed, Pancreas lesion biopsied) Specimens Pancreas lesion Description of Procedure EUS/ERCP I attest to the content of the Intraoperative Record and any orders documented therein. Any exceptions are noted below.
--- NOTE | 2020-09-17 16:25 | GI REPORT ---
Patient Name: Emelia Sterling Procedure Date: 09/17/2020 2:32 PM Date of : 1950 Admit Type: Inpatient Age: 69 Gender: Female Attending MD: Dallas Ramires MD Procedure: Upper GI endoscopy Providers: Dallas Ramires MD Referring MD: Nadiya Herrera Md Indications: Anemia Medicines: General Anesthesia Complications: No immediate complications. Estimated Blood Loss: Estimated blood loss: none. Procedure: Pre-Anesthesia Assessment: - Prior to the procedure, a History and Physical was performed, and patient medications, allergies and sensitivities were reviewed. The patient's tolerance of previous anesthesia was reviewed. - The risks and benefits of the procedure and the sedation options and risks were discussed with the patient. All questions were answered and informed consent was obtained. - Patient identification and proposed procedure were verified prior to the procedure by the physician and the nurse. The procedure was verified in the procedure room. - Pre-procedure physical examination revealed no contraindications to sedation. After obtaining informed consent, the endoscope was passed under direct vision. Throughout the procedure, the patient's blood pressure, pulse, and oxygen saturations were monitored continuously. The Endoscope was introduced through the mouth, and advanced to the second part of duodenum. The upper GI endoscopy was accomplished without difficulty. The patient tolerated the procedure well. Findings: The examined esophagus was normal. The entire examined stomach was normal. The duodenal bulb and second portion of the duodenum were normal. Impression: - Normal esophagus. - Normal stomach. - Normal duodenal bulb and second portion of the duodenum. Recommendation: - Perform an upper endoscopic ultrasound (UEUS) today. Dallas Ramires MD 09/17/2020 4:25:17 PM This report has been signed electronically. Note Initiated On: 09/17/2020 2:32 PM Number of Addenda: 0 I attest to the content of the Intraoperative Record and orders documented therein, exceptions below {[id number]}
[2020-09-17] MEDS ORDERED: GLUCAGON FOR INJ 1 MG VIAL ONE (16:30)
--- NOTE | 2020-09-17 16:33 | GI REPORT ---
Patient Name: Emelia Sterling Procedure Date: 09/17/2020 3:33 PM Date of : 1950 Admit Type: Inpatient Age: 69 Gender: Female Attending MD: Dallas Ramires MD Procedure: ERCP Providers: Dallas Ramires MD Referring MD: Nadiya Herrera Md Indications: Biliary dilation on Ultrasound, Abnormal endoscopic ultrasound of the biliary system, Biliary sludge Medicines: General Anesthesia Complications: No immediate complications. Estimated Blood Loss: Estimated blood loss: none. Procedure: Pre-Anesthesia Assessment: - Prior to the procedure, a History and Physical was performed, and patient medications, allergies and sensitivities were reviewed. The patient's tolerance of previous anesthesia was reviewed. - The risks and benefits of the procedure and the sedation options and risks were discussed with the patient. All questions were answered and informed consent was obtained. - Patient identification and proposed procedure were verified prior to the procedure by the physician and the nurse. The procedure was verified in the procedure room. - Pre-procedure physical examination revealed no contraindications to sedation. After obtaining informed consent, the scope was passed under direct vision. Throughout the procedure, the patient's blood pressure, pulse, and oxygen saturations were monitored continuously. The Scope was introduced through the mouth, and advanced to the duodenum and used to inject contrast into the bile duct. The ERCP was accomplished without difficulty. The patient tolerated the procedure well. Findings: The esthetics instructor film was normal. The esophagus was successfully intubated under direct vision. The scope was advanced to a normal major papilla in the descending duodenum without detailed examination of the pharynx, larynx and associated structures, and upper GI tract. The upper GI tract was grossly normal. A 0.035 inch straight standard wire was passed inadvertantly into the ventral pancreatic duct. The ventral pancreatic duct was then deeply cannulated with the short-nosed traction sphincterotome and guidewire. Contrast was injected. I personally interpreted the pancreatic duct images. Ductal flow of contrast was adequate. Image quality was adequate. Contrast extended to the pancreatic duct. Opacification of the main pancreatic duct was successful. The maximum diameter of the ducts was 2 mm. A 0.035 inch straight standard wire was passed into the biliary tree. The Fusion OMNI sphincterotome was passed over the guidewire and the bile duct was then deeply cannulated. Contrast was injected. The main bile duct was dilated. The largest diameter was 12 mm. The biliary orifice was stenotic. This appeared benign. The lower third of the main bile duct contained filling defect(s) thought to be sludge. Biliary sphincterotomy was made with a monofilament traction (standard) sphincterotome using ERBE electrocautery. There was no post-sphincterotomy bleeding. The biliary tree was swept with a 15 mm balloon starting at the bifurcation. Large amount of sludge was swept from the duct. One 10 Fr by 10 cm plastic biliary stent with a single external flap and a single internal flap was placed into the common bile duct. Bile flowed through the stent. The stent was in good position. Indomethacin 100 mg was given via suppository to decrease the risk of post-ERCP pancreatitis (PEP). Impression: - Benign biliary papillary stenosis. A biliary sphincterotomy was performed. - The biliary tree was swept and sludge was found. - One plastic biliary stent was placed into the common bile duct. Recommendation: - Return patient to [facility] for ongoing care. - Refer to a surgeon for cholecystectomy. - Repeat ERCP in 4 weeks to remove stent. Dallas Ramires MD 09/17/2020 4:32:37 PM This report has been signed electronically. Note Initiated On: 09/17/2020 3:33 PM Number of Addenda: 0 I attest to the content of the Intraoperative Record and orders documented therein, exceptions below {[id number]}
--- NOTE | 2020-09-17 16:42 | GI REPORT ---
Patient Name: Emelia Sterling Procedure Date: 09/17/2020 2:42 PM Date of : 1950 Admit Type: Inpatient Age: 69 Gender: Female Attending MD: Dallas Ramires MD Procedure: Upper EUS Providers: Dallas Ramires MD Referring MD: Nadiya Herrera Md Indications: Abnormal ultrasound of the abdomen, Elevated liver enzymes, Suspected choledocholithiasis Medicines: General Anesthesia Complications: No immediate complications. Estimated Blood Loss: Estimated blood loss: none. Procedure: Pre-Anesthesia Assessment: - Prior to the procedure, a History and Physical was performed, and patient medications, allergies and sensitivities were reviewed. The patient's tolerance of previous anesthesia was reviewed. - The risks and benefits of the procedure and the sedation options and risks were discussed with the patient. All questions were answered and informed consent was obtained. - Patient identification and proposed procedure were verified prior to the procedure by the physician and the nurse. The procedure was verified in the procedure room. - Pre-procedure physical examination revealed no contraindications to sedation. After obtaining informed consent, the endoscope was passed under direct vision. Throughout the procedure, the patient's blood pressure, pulse, and oxygen saturations were monitored continuously. The Endosonoscope was introduced through the mouth, and advanced to the second part of duodenum. The upper EUS was accomplished without difficulty. The patient tolerated the procedure well. Findings: ENDOSONOGRAPHIC FINDING: : There was no sign of significant endosonographic abnormality in the ampulla. No masses were identified. There was dilation in the common bile duct which measured up to 11 mm. Moderate hyperechoic material consistent with sludge was visualized endosonographically in the common bile duct. Moderate hyperechoic material consistent with sludge was visualized endosonographically in the gallbladder. There was no sign of significant endosonographic abnormality in the visualized portion of the liver. Homogeneous parenchyma was identified. A round mass was identified in the pancreatic body. The mass was hypoechoic. The mass measured 8 mm by 6 mm in maximal cross-sectional diameter. The endosonographic borders were well-defined. An intact interface was seen between the mass and the adjacent structures suggesting a lack of invasion. The remainder of the pancreas was examined. The endosonographic appearance of parenchyma and the upstream pancreatic duct indicated that the remainder of the pancreas was unremarkable. Fine needle aspiration for cytology was performed. Color Doppler imaging was utilized prior to needle puncture to confirm a lack of significant vascular structures within the needle path. Four passes were made with the 25 gauge needle using a transgastric approach. A stylet was used. A ceo & board director was present and performed a preliminary cytologic examination. The cellularity of the specimen was adequate. Final cytology results are pending. Verification of patient identification for the specimen was done by the physician and nurse using the patient's name and date. This was staged T1 N0 Mx by endosonographic criteria. The staging applies if malignancy is confirmed. PD measured 2 mm in diameter. There was no sign of significant endosonographic abnormality in the visualized portion of the left adrenal gland. There was no sign of significant endosonographic abnormality involving the celiac trunk. Impression: - There was no sign of significant pathology in the ampulla. - There was dilation in the common bile duct which measured up to 11 mm. Hyperechoic material consistent with sludge was visualized endosonographically in the common bile duct. This could be related to chronic opioid use. - Hyperechoic material consistent with sludge was visualized endosonographically in the gallbladder. - There was no evidence of significant pathology in the visualized portion of the liver. - An 8 mm lesion was identified in the pancreatic body. This seems like a carcinoid (neuroendocrine tumor). Fine needle aspiration performed. - Endosonographic images of the left adrenal gland were unremarkable. - The celiac trunk was endosonographically normal. Recommendation: - Await path results. - Perform an ERCP today. Dallas Ramires MD 09/17/2020 4:42:01 PM This report has been signed electronically. Note Initiated On: 09/17/2020 2:42 PM Number of Addenda: 0 I attest to the content of the Intraoperative Record and orders documented therein, exceptions below {[id number]}
--- NOTE | 2020-09-17 17:03 | Anesthesiology Progress Note ---
Date of Service September 17, 2020 Anesthesia Post Procedure Vital Signs Vital Signs: Temp Pulse Pulse Pulse Resp BP BP 09/17/20 17:00 36.5 C 97 H 15 143/82 H 09/17/20 16:50 92 H 16 120/92 09/17/20 16:40 102 H 14 152/92 H 09/17/20 16:30 36.6 C 104 H 16 155/98 H 09/17/20 14:01 36.7 C 80 20 142/85 H 09/17/20 11:09 36.7 C 80 18 160/91 H 09/17/20 10:30 79 09/17/20 07:31 36.4 C L 84 18 130/79 09/17/20 04:00 36.7 C 89 16 129/80 09/16/20 22:24 89 09/16/20 22:00 36.6 C 80 18 123/80 09/16/20 19:00 36.7 C 86 18 125/72 Pulse Ox 09/17/20 17:00 99 09/17/20 16:50 95 09/17/20 16:40 99 09/17/20 16:30 93 09/17/20 14:01 78 L 09/17/20 11:09 97 09/17/20 10:30 09/17/20 07:31 96 09/17/20 04:00 95 09/16/20 22:24 09/16/20 22:00 98 09/16/20 19:00 98 Pain Intensity Left Frontal: Pain Intensity: 2 Transfer of Care Handoff Completed per policy Notes Mental Status: alert / awake / arousable Patient Amnestic to Procedure: Yes Nausea / Vomiting: adequately controlled Pain: adequately controlled Airway Patency, RR, SpO2: stable & adequate BP & HR: stable & adequate Hydration State: stable & adequate Anesthetic Complications: no major complications apparent and Pt Satisfied with anesthetic care
--- NOTE | 2020-09-17 17:08 | Fluoroscopy Report ---
[place] ERCP biliary ductal HISTORY: 69 years-old Female ERCP IN OR acute right upper quadrant abdominal pain with elevated LFTs COMPARISON: Abdominal ultrasound 09/16/2020 TECHNIQUE: 8 spot fluoroscopic images of the abdominal right upper quadrant were obtained utilizing 7 4.4 seconds fluoroscopy time FINDINGS: Endoscope is noted within the duodenum. Cannulation of the common bile duct with retrograde injection of contrast. Contrast extends into the distal common and pancreatic ducts. There is abrupt luminal n arrowing of the distal common bile duct. There are apparent filling defects within the common bile du ct on image 4 which may reflect air bubbles or stones. Subsequent images demonstrate balloon sweep of the common bile duct with interval placement of a common bile duct stent which appears in satisfacto ry positioning. There is no significant intrahepatic biliary ductal dilation. Mildly distended gallbl adder. IMPRESSION: Fluoroscopic assistance as above. Please see procedural report for further details. ACT 112: Negative or not required by law. The above report was generated using voice recognition software. It may contain grammatical, syntax o r spelling errors. Electronically signed by: Calin Bustillo M.D. 09/17/2020 5:07 PM
[2020-09-17] MEDS: LACTATED RINGER'S 1,000 ML IV SCH ×2 (17:21→22:46)
[2020-09-17 18:01] LABS: Hematocrit (blood only) 36.2 % (37-47); Hemoglobin 11.8 g/dL (12.0-16.0); Mean Corpuscular Hemoglobin 34.4 pg (25-34); Mean Corpuscular Hgb Conc 32.6 g/dL (32-36); Mean Corpuscular Volume 105.5 fL (80-100); Mean Platelet Volume 10.4 fL (7.4-10.4); Platelet Count 121 K/uL (130-400); RDW Coefficient of Variation 12.2 % (11.5-14.5); RDW Standard Deviation 47.2 fL (36.4-46.3); Red Blood Count 3.43 M/uL (4.2-5.4)
--- NOTE | 2020-09-17 19:08 | Gastroenterology Progress Note ---
Date of Service September 17, 2020 Assessment & Plan Admission and Anticipated Discharge Date Admission Date: September 16, 2020 Subjective EUS showed: Dilated CBD with sludge. Sludge in gallbladder. Incidental 8 mm lesion was identified in the pancreatic body. This seems like a carcinoid (neuroendocrine tumor). Fine needle aspiration performed. ERCP showed: Dilated CBD with sludge, removed after sphincterotomy, CBD stent placed. Recommend: Surgery consult for cholecystectomy. F/U with me as OP for management of the incidental Pancreatic lesion. Recall Gi if needed. Results & Data ([facility]) Vital Signs (Past 12 Hours) Vital Signs Temp Pulse Pulse Pulse Resp BP BP 09/17/20 18:12 89 09/17/20 18:00 36.5 C 92 H 18 124/78 09/17/20 17:30 36.5 C 83 18 144/78 H 09/17/20 17:15 36.5 C 78 18 142/80 H 09/17/20 17:00 36.5 C 97 H 15 143/82 H 09/17/20 16:50 92 H 16 120/92 09/17/20 16:40 102 H 14 152/92 H 09/17/20 16:30 36.6 C 104 H 16 155/98 H 09/17/20 14:01 36.7 C 80 20 142/85 H 09/17/20 11:09 36.7 C 80 18 160/91 H 09/17/20 10:30 79 09/17/20 07:31 36.4 C L 84 18 130/79 Pulse Ox 09/17/20 18:12 09/17/20 18:00 96 09/17/20 17:30 95 09/17/20 17:15 98 09/17/20 17:00 99 09/17/20 16:50 95 09/17/20 16:40 99 09/17/20 16:30 93 09/17/20 14:01 78 L 09/17/20 11:09 97 09/17/20 10:30 09/17/20 07:31 96
[2020-09-17] MEDS: ESCITALOPRAM OXALATE 20 MG TAB PO SCH (20:44)
[2020-09-17] MEDS: FOLIC ACID 1 MG TAB PO SCH (20:44)
[2020-09-17] MEDS: CYANOCOBALAMIN 500 MCG TABLET (VITAMIN B-12) PO SCH (20:44)
[2020-09-17] MEDS ORDERED: COUGH DROP (SUGAR FREE) LOZ 24 LOZ/1 BOX BUCCAL ONE (21:17)
[2020-09-17] MEDS: MIRTAZAPINE TAB 15 MG TAB PO SCH (21:23)
--- NOTE | 2020-09-17 21:59 | Electrocardiogram Report ---
Test Reason : Blood Pressure : / mmHG Vent. Rate : 084 BPM Atrial Rate : 084 BPM P-R Int : 116 ms QRS Dur : 072 ms QT Int : 390 ms P-R-T Axes : -05 043 033 degrees QTc Int : 460 ms Normal sinus rhythm Normal ECG When compared with ECG of 16-SEP-2020 08:37, T wave amplitude has increased in Anterior leads Confirmed by Tim Alexander ([id number]) on 09/17/2020 9:58:35 PM Referred By: REFERRED SELF Confirmed By:Tim Alexander
--- NOTE | 2020-09-17 22:06 | Surgery Consultation ---
Date of Consultation September 17, 2020 Assessment & Plan (1) Nausea and vomiting: -GI evaluation noted and is felt that her symptoms are biliary in nature and recommend cholecystectomy -tent. planning on procedure tomorrow, pending Dr. Mendoza's review of case -COVID-19 status noted to be (-) this admission -pre-op CXR performed and is without infiltrates or CHF -EKG showed NSR without ischemic changes History of Present Illness Attending Physician: Nadiya Herrera MD History of Present Illness 69 year old female admitted secondary to N/V, dizziness and syncope. Due to melena noted at time of admission, GI consult obtained. She was noted to have elevated LFTs and (+) FOB. Imaging revealed a dilated CBD and mildly distended GB. GI performed an EUB and ERCP earlier today. A pancreatic lesion was noted and FNA performed (path pending). She was noted to have sludge in CBD, so a stent was placed. No source of GI bleed was identified. Upon question ing, the pt. reported RUQ pain without modifying factors. She has a hx. of smoking, but quit 30 year s ago. She has lost 30 pounds over the past year, which was unintentional. At the time of my exam, she was resting ion bed in no distress. Allergies Allergy/AdvReac Type Severity Reaction Status Date / Time No Known Allergies Allergy Unverified 09/16/20 09:39 Home Medications Home Medications Medication Instructions Recorded Confirmed Type cyanocobalamin (vitamin B-12) 1,000 mcg PO PM 09/16/20 09/16/20 History [Vitamin B-12] escitalopram oxalate 20 mg PO PM 09/16/20 09/16/20 History folic acid 1 mg PO PM 09/16/20 09/16/20 History hydrocodone-acetaminophen 1 tab PO DAILY PRN 09/16/20 09/16/20 History levothyroxine 75 mcg PO QAM 09/16/20 09/16/20 History mirtazapine 15 mg PO HS 09/16/20 09/16/20 History Patient History Medical History Depression Hypothyroidism Orthostatic hypotension Surgical History H/O tubal ligation History of appendectomy History of tonsillectomy Family History Other Alzheimer disease Myocardial infarction Social History Smoking Status: Former smoker Years Smoked: 31; Smoking End Date: 2019; Hx Alcohol Use: Yes Alcohol type: wine Alcohol Intake Frequency: 4 or More x per/Week Hx Substance Use: No Preferred Language: [place] Communication Ability: Effective Leather Scrubber Required: No Beliefs That Will Affect Care: Restorationist marital status: Current Living Situation: Alone How many Children do You have: 1 Other Information That Helps Us Care for You: No Feels Safe at Home: Yes Review of Systems Constitutional: + weight loss (30 pound last year ); no fever and no chills Eyes: no diplopia Ear, Nose, Mouth, Throat: no ear pain Respiratory: no cough and no dyspnea Cardiovascular: + syncope; no chest pain Gastrointestinal: + abdominal pain and + nausea Genitourinary: no dysuria Musculoskeletal: no back pain Integumentary: no rash Neurologic: no localized weakness Physical Exam Constitutional: + thin; no acute distress Eyes: no corneal abnormality ENMT: Ears: no hearing impairment Neck: trachea midline Respiratory: normal respiratory effort, lungs clear to auscultation normal respiratory effort; no respiratory distress and no labored breathing Cardiovascular: Rate/Rhythm: regular rate and regular rhythm Gastrointestinal (Abdomen): Inspection/Auscultation: normal bowel sounds Percussion/Palpation: + abdomen tender (RUQ) and abdomen soft no rebound tenderness or guarding Musculoskeletal: no calf pain Skin: no rashes, warm and dry Neurologic: moves all extremities Psychiatric: Orientation: alert and oriented x 3 Affect: + flat affect Results & Data ([facility]) Vital Signs (Past 12 Hours) Vital Signs Temp Pulse Pulse Pulse Resp BP BP 09/17/20 18:12 89 09/17/20 18:00 36.5 C 92 H 18 124/78 09/17/20 17:30 36.5 C 83 18 144/78 H 09/17/20 17:15 36.5 C 78 18 142/80 H 09/17/20 17:00 36.5 C 97 H 15 143/82 H 09/17/20 16:50 92 H 16 120/92 09/17/20 16:40 102 H 14 152/92 H 09/17/20 16:30 36.6 C 104 H 16 155/98 H 09/17/20 14:01 36.7 C 80 20 142/85 H 09/17/20 11:09 36.7 C 80 18 160/91 H 09/17/20 10:30 79 Pulse Ox 09/17/20 18:12 09/17/20 18:00 96 09/17/20 17:30 95 09/17/20 17:15 98 09/17/20 17:00 99 09/17/20 16:50 95 09/17/20 16:40 99 09/17/20 16:30 93 09/17/20 14:01 78 L 09/17/20 11:09 97 09/17/20 10:30 PG Care Time/CCT Total # of Minutes Spent Total Time Spent with Patient: Total time spent is greater than 50% in coordination of care (as documented) at patient's floor/unit and/or counseling patient: Coding Level of Care Code 19856 Inpt Consult Level 5 Diagnoses Nausea and vomiting R11.2
[2020-09-18] MEDS: HYDROCODONE/ACETAMOPHEN 5/325MG TAB PO PRN (04:12)
[2020-09-18 04:21] LABS: Hepatitis A Antibody IgM NON-REACTIVE (NON-REACTIVE); Hepatitis B Core Antibody IgM NON-REACTIVE (NON-REACTIVE)
[2020-09-18] MEDS: LACTATED RINGER'S 1,000 ML IV SCH ×4 (05:00→23:24)
[2020-09-18] MEDS: LEVOTHYROXINE SODIUM 75 MCG TABLET PO SCH (05:01)
[2020-09-18] MEDS ORDERED: NEOSTIGMINE METHYLSULFATE 5 MG/5 ML SYR ONE (07:08)
[2020-09-18] MEDS ORDERED: ONDANSETRON INJ 2 MG/ML 2 ML VIAL ONE (07:08)
[2020-09-18] MEDS ORDERED: fentaNYL citrate 100 MCG/2 ML VIAL ONE ×2 (07:08→09:15)
[2020-09-18] MEDS ORDERED: MIDAZOLAM HCL 1 MG/ML 2ML VIAL ONE (07:08)
[2020-09-18] MEDS ORDERED: PROPOFOL IV EMULSION 10 MG/ML 20 ML VIAL IV ONE (07:08)
[2020-09-18] MEDS ORDERED: DEXAMETHASONE SOD INJ 4 MG/ML VIAL ONE (07:08)
[2020-09-18] MEDS ORDERED: LIDOCAINE HCL 2% 2 ML VIAL/AMP(20MG/ML) INFIL ONE (07:08)
[2020-09-18] MEDS ORDERED: GLYCOPYRROLATE 0.2 MG/ML VIAL ONE (07:08)
[2020-09-18 07:09] LABS: Hematocrit (blood only) 31.3 % (37-47); Hemoglobin 10.4 g/dL (12.0-16.0); Mean Corpuscular Hemoglobin 34.6 pg (25-34); Mean Corpuscular Hgb Conc 33.2 g/dL (32-36); Mean Platelet Volume 11.1 fL (7.4-10.4); Platelet Count 110 K/uL (130-400); RDW Coefficient of Variation 11.9 % (11.5-14.5); RDW Standard Deviation 45.2 fL (36.4-46.3); Red Blood Count 3.01 M/uL (4.2-5.4); White Blood Count 9.97 K/uL (4.8-10.8)
--- NOTE | 2020-09-18 07:19 | Anesthesiology Consultation ---
Date of Service September 18, 2020 Assessment & Plan (1) Encounter for pre-operative examination: Chart Review Chart Review: Acceptable Risk for Surgery History Surgery Operation Date: 09/17/20 12:35 Proposed Procedures p Endoscopic Retrograde Cholangiopancreatogram - Dallas Ramires MD s Upper Endoscopic Ultrasonography - Dallas Ramires MD Operation Date: 09/17/20 16:00 Proposed Procedures p Esophagogastroduodenoscopy Dr Ramires - Dallas Ramires MD Operation Date: 09/18/20 09:00 Proposed Procedures p Laparoscopic Cholecystectomy - Tutu Mendoza DO Height/Weight Height: 5 ft 7 in Weight: 40.7 kg Allergies Allergy/AdvReac Type Severity Reaction Status Date / Time No Known Allergies Allergy Unverified 09/16/20 09:39 Medications Home Medications Medication Instructions Recorded Confirmed Last Taken cyanocobalamin (vitamin B-12) 1,000 mcg PO PM 09/16/20 09/16/20 09/15/20 [Vitamin B-12] escitalopram oxalate 20 mg PO PM 09/16/20 09/16/20 09/15/20 folic acid 1 mg PO PM 09/16/20 09/16/20 09/15/20 hydrocodone-acetaminophen 1 tab PO DAILY PRN 09/16/20 09/16/20 Unknown levothyroxine 75 mcg PO QAM 09/16/20 09/16/20 09/15/20 mirtazapine 15 mg PO HS 09/16/20 09/16/20 09/15/20 Active Medications Generic Name Dose Route Start Last Admin Trade Name Freq PRN Reason Stop Dose Admin Hydrocodone Bitart/Acetaminophen 1 tab 09/16/20 15:27 09/18/20 04:12 Hydrocodone/Acetamophen 5/325mg Tab PO 09/30/20 15:26 1 tab DAILY PRN Administration Pain Cyanocobalamin 1,000 mcg 09/16/20 21:00 09/17/20 20:44 Cyanocobalamin 500 Mcg Tablet (Vitamin B-12) PO 10/16/20 20:59 1,000 mcg PM LILY Administration Escitalopram Oxalate 20 mg 09/16/20 21:00 09/17/20 20:44 Escitalopram Oxalate 20 Mg Tab PO 10/16/20 20:59 20 mg PM LILY Administration Folic Acid 1 mg 09/16/20 21:00 09/17/20 20:44 Folic Acid 1 Mg Tab PO 10/16/20 20:59 1 mg PM LILY Administration Lactated Ringer's 1,000 mls @ 150 mls/hr 09/17/20 16:30 09/18/20 05:00 Lr IV 10/17/20 16:29 150 mls/hr .[id number] LILY Administration Levothyroxine Sodium 75 mcg 09/17/20 06:30 09/18/20 05:01 Levothyroxine Sodium 75 Mcg Tablet PO 10/17/20 06:29 75 mcg DAILYBB LILY Administration Mirtazapine 15 mg 09/16/20 21:00 09/17/20 21:23 Mirtazapine Tab 15 Mg Tab PO 10/16/20 20:59 15 mg HS LILY Administration NPO Date Last Intake of Fluids: 09/16/20 Time Last Intake of Fluids: 16:00 Date Last Intake of Solids: 09/15/20 Time Last Intake of Solids: 14:00 Past Medical History Medical History (Updated 09/18/20 @ 07:18 by Yasmany Maldonado MD) Depression Hypothyroidism Orthostatic hypotension Past Family History Family History Other Alzheimer disease Myocardial infarction Past Surgical History Surgical History (Updated 09/18/20 @ 07:18 by Yasmany Maldonado MD) H/O tubal ligation History of appendectomy History of ERCP History of tonsillectomy Social History Smoking Status: Former smoker Smoking End Date: 2018 Hx Alcohol Use: Yes Alcohol type: wine alcohol intake frequency: a few times a week Hx Substance Use: No Physical Exam Vital Signs Last Vital Signs Temp 36.8 C 09/18/20 03:52 Pulse 74 09/18/20 03:52 Resp 20 09/18/20 03:52 BP 111/76 09/18/20 03:52 Pulse Ox 98 09/18/20 03:52 Testing Laboratory Results 09/18/20 06:11 Urine Color [place] 09/16/20 13:30 Urine Appearance Clear (Clear) 09/16/20 13:30 Urine pH 5.5 (4.5-7.5) 09/16/20 13:30 Ur Specific [place] 1.019 (1.000-1.030) 09/16/20 13:30 Urine Protein Negative (Negative) 09/16/20 13:30 Urine Glucose (UA) Negative (Negative) 09/16/20 13:30 Urine Ketones Trace (Negative) H 09/16/20 13:30 Urine Nitrite Negative (Negative) 09/16/20 13:30 Ur Leukocyte Esterase Negative (Negative) 09/16/20 13:30 09/16/20 14:45 Escherichia coli Shiga Toxins Test - Preliminary Stool Stool Culture - Preliminary No Salmonella isolated to date, No Shigella isolated to date, No Campylobacter jejuni isolated to date.
--- NOTE | 2020-09-18 07:30 | History & Physical Bridge Note ---
Date of Service September 18, 2020 History & Physical Bridge Note I have examined the patient, reviewed the History & Physical and in the interval since the performance of the History & Physical I have noted the following changes of clinical significance: no changes noted pt seen. discussed ERCP findings/recs. discussed lap geno and risks ( bleeding/infection/injury to nearby structures such as bowel/liver/bile ducts etc...), dvt/pe/mi/cva etc.... questions answered. will proceed with lap geno today.
[2020-09-18 07:53] LABS: Albumin Level 2.5 gm/dl (3.4-5.0); Bilirubin,Total 0.7 mg/dl (0.2-1); Calcium 7.9 mg/dl (8.5-10.1); Creatinine Clr Calc Pharmacy 76.3 ml/min; Est GFR (African American) 119.3; Est GFR (Non-African American) 102.9; Globulin 2.4 gm/dl (2.5-4.0); Potassium 3.8 mmol/L (3.5-5.1); Total Protein 4.9 gm/dl (6.4-8.2)
[2020-09-18] MEDS ORDERED: EPINEPHrine INJ 1 MG/ML AMP ONE (08:04)
[2020-09-18] MEDS ORDERED: BUPIVACAINE 0.5 % 5 MG/1 ML MPF 30ML VIAL ONE (08:04)
[2020-09-18] MEDS ORDERED: ATROPINE SULFATE 0.1 MG/ML 10ML SYR IV PRN (08:05)
[2020-09-18] MEDS ORDERED: ONDANSETRON INJ 2 MG/ML 2 ML VIAL IV PRN (08:05)
[2020-09-18] MEDS ORDERED: PROMETHAZINE HCL 6.25 MG in SODIUM CHLORIDE 0.9% 50 ML IV PRN (08:05)
[2020-09-18] MEDS ORDERED: HYDROmorphone INJ 1 MG/ML SYRINGE IV PRN (08:05)
[2020-09-18] MEDS ORDERED: ceFAZolin 1000MG 1,000 MG/7.5 ML SYR IV ONE (08:40)
[2020-09-18] MEDS ORDERED: KETOROLAC 30 MG/ML VIAL ONE (08:42)
[2020-09-18] MEDS ORDERED: ROCURONIUM BROMIDE 10 MG/ML 5 ML VIAL IV ONE (08:42)
[2020-09-18] MEDS ORDERED: LARYING-O-JET KIT (LTA) ONE (08:54)
--- NOTE | 2020-09-18 09:14 | Operative Report ---
PG Post Operative Report Pre & Post Diagnosis Operation Date: 09/17/20 12:35 Pre-Op Diagnosis: Nausea/Vomiting, Melena Post-Op Diagnosis: Nausea/Vomiting, Melena Operation Date: 09/17/20 16:00 <No data on this case meets the specified criteria> Operation Date: 09/18/20 09:00 Pre-Op Diagnosis: Gallstones Post-Op Diagnosis: Gallstones I identified the patient and participated in the time-out.: Yes Procedure Operation Date: 09/17/20 12:35 Actual Procedures p Endoscopic Retrograde Cholangiopancreatogram(Not Applicable) - Dallas Ramires MD s Upper Endoscopic Ultrasonography(Not Applicable) - Dallas Ramires MD Operation Date: 09/17/20 16:00 <No data on this case meets the specified criteria> Operation Date: 09/18/20 09:00 Actual Procedures p Laparoscopic Cholecystectomy; enterolysis - Tutu Mendoza DO Surgeon Tutu Mendoza DO Forest Logistics Manager none Estimated Blood Loss 5 Findings See Below (CBD sludge, CBD stent placed, Pancreas lesion biopsied) Specimens gallbladder Description of Procedure After informed consent was obtained the patient was taken to the operating room and placed in the supine position. After successful intubation the abdomen was sterilely prepped and draped in usual fashion. A periumbilical incision was made with an 11 blade scalpel and carried down through the soft tissue using electrocautery. The anterior rectus fascia was opened using electrocautery and 2 #0 Vicryl stay sutures were placed. The peritoneum was elevated with hemostats and incised under direct vision using Metzenbaum scissors. A finger sweep was performed and a 12 mm Gordillo trocar was placed. The abdomen was insufflated to 18 mmHg. The laparoscope was inserted and the abdomen was examined in 360. Other than a moderate sized hiatal hernia, no gross abnormalities were identified. A subxiphoid 5 mm port and 2 right upper quadrant 5 mm ports were placed under direct vision. The patient was placed in a reverse Trendelenburg position and slightly airplaned to the left. The gallbladder was grasped and elevated superiorly and laterally. There were adhesions involving the colon and duodenum to the undersurface of the liver. These were taken down primarily using blunt dissection and a small amount of scissor lysis. A [place] dissector was used to take down adhesions around the neck of the gallbladder as well. The cystic duct was identified and skeletonized. It was clipped twice proximally and once distally and transected using a laparoscopic scissor. In similar fashion the cystic artery was identified and skeletonized clipped and divided. The gallbladder was removed from the gallbladder fossa with electrocautery. It was placed into an Endo Catch bag. Thorough irrigation was performed. At the end of the procedure there was adequate hemostasis and no evidence of any bile leaks. A final look around the abdomen showed no other abnormalities. The gallbladder and trochars were all removed and the abdomen was desufflated. The fascia of the camera port was closed using 0 Vicryl in a [id number] fashion. All the wounds were irrigated and closed using 4-0 Monocryl. Marcaine was injected around them for postoperative analgesia and skin glue used as a dressing. The patient was awaken extubated and transferred to recovery in stable condition. I attest to the content of the Intraoperative Record and any orders documented therein. Any exceptions are noted below.
[2020-09-18] MEDS ORDERED: ADENOSINE IV SOLN 3 MG/ML 2 ML VIAL IV ONE (09:23)
[2020-09-18] MEDS ORDERED: ESMOLOL HCL INJ 10 MG/ML 10ML VIAL IV ONE (09:24)
--- NOTE | 2020-09-18 10:09 | Anesthesiology Progress Note ---
Date of Service September 18, 2020 called to see patient on arrival to recovery - HR 150's - BP stable - awake and alert though little "loopy" - gave adenosine 6mg push and she responded by slowing down to 110's but not abruptly so probably just sinus tach maybe partly due to neostigmine reveral - gave additional esmolol 10mg with hr in 90's - BP stable - remained in 90's through recovery stay. Anesthesia Post Procedure Vital Signs Vital Signs: Temp Pulse Pulse Pulse Resp BP BP 09/18/20 09:55 36.4 C L 135 H 16 135/82 09/18/20 09:45 96 H 16 142/81 H 09/18/20 09:35 102 H 16 148/87 H 09/18/20 09:25 163 H 18 155/94 H 09/18/20 09:15 36.4 C L 143 H 18 137/79 09/18/20 07:20 36.8 C 73 18 128/73 09/18/20 03:52 36.8 C 74 20 111/76 09/18/20 00:00 83 09/17/20 22:00 36.8 C 78 16 122/76 09/17/20 18:12 89 09/17/20 18:00 36.5 C 92 H 18 124/78 09/17/20 17:30 36.5 C 83 18 144/78 H 09/17/20 17:15 36.5 C 78 18 142/80 H 09/17/20 17:00 36.5 C 97 H 15 143/82 H 09/17/20 16:50 92 H 16 120/92 09/17/20 16:40 102 H 14 152/92 H 09/17/20 16:30 36.6 C 104 H 16 155/98 H 09/17/20 14:01 36.7 C 80 20 142/85 H 09/17/20 11:09 36.7 C 80 18 160/91 H 09/17/20 10:30 79 Pulse Ox 09/18/20 09:55 100 09/18/20 09:45 100 09/18/20 09:35 100 09/18/20 09:25 99 09/18/20 09:15 99 09/18/20 07:20 98 09/18/20 03:52 98 09/18/20 00:00 09/17/20 22:00 99 09/17/20 18:12 09/17/20 18:00 96 09/17/20 17:30 95 09/17/20 17:15 98 09/17/20 17:00 99 09/17/20 16:50 95 09/17/20 16:40 99 09/17/20 16:30 93 09/17/20 14:01 78 L 09/17/20 11:09 97 09/17/20 10:30 Pain Intensity Left Frontal: Pain Intensity: 2 Transfer of Care Handoff Completed per policy Notes Mental Status: alert / awake / arousable Patient Amnestic to Procedure: Yes Nausea / Vomiting: adequately controlled Pain: adequately controlled Airway Patency, RR, SpO2: stable & adequate BP & HR: stable & adequate Hydration State: stable & adequate Anesthetic Complications: no major complications apparent
[2020-09-18] MEDS ORDERED: Nursing to Pharmacy Communication SCH (11:45)
[2020-09-18] MEDS: PANTOprazole 40 MG TAB PO SCH (11:56)
[2020-09-18] MEDS ORDERED: ONDANSETRON INJ 2 MG/ML 2 ML VIAL IV ONE (12:00)
--- NOTE | 2020-09-18 13:56 | Hospitalist Progress Note ---
Date of Service September 18, 2020 Assessment & Plan (1) GI bleed: (2) Nausea and vomiting: (3) Melena: 69yo F with a PMH of hypothyroidism, MDD, history of recurrent syncope and vertigo and other medical problems as below who presents from home with sudden onset dizziness, nausea, vomiting and one episode of melanotic stool at 0200. One episode of melanotic stool on morning of admission. Occasional use of ibuprofen. 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 deficiency for which she is now supplemented -Work up in 12/08: normal brain MRI, routine EEF and ZIO testing revealing multiple short runs of PSVT which was later evaluated by cardiology and not thought to be associated with near syncope On telemetry, HR has been sinus with HR in 80-100s Fall precautions Evaluated by PT/OT Patient and daughter interested in rehab Discussed with CM (7) Leukocytosis: WBC of 15, likely reactive Resolved No fevers or other signs of infection Monitor for now (8) LFT elevation: LFTs (Bilirubin, AST, Alk phos) were elevated on admission ERCP showed dilated CBD with sludge, sludge in gall bladder, incidental 8mm lesion in pancreatic body with fine needle aspiration. CBD sludge removed after sphincterotomy and stent place S/P laparoscopic cholecystectomy this morning Patient will need follow up with GI outpatient for follow up of results and removal of stents (9) Hypothyroidism: Continue levothyroxine (10) Depression: Continue SSRI DVT Ppx: SCDs Code status: FULL PCP: Still ([place]) Admission and Anticipated Discharge Date Admission Date: September 16, 2020 Subjective Patient seen and examined Patient had EGD yesterday which did not show obvious bleeding or ulcers Had ERCP with stent placement in CBD Patient just returned from laparoscopic cholecystectomy Patient reports feeling much better today No dizziness at this time Reports headache where she hit her head is much improved Reports latest bowel movement was brown Generalized weakness improving Denied any chest pain, SOB, cough Physical Exam Constitutional: + well hydrated; no acute distress Eyes: PERRL, conjunctivae normal, anicteric sclerae ENMT: external ear and nose normal, oropharynx normal Respiratory: normal respiratory effort, lungs clear to auscultation Cardiovascular: RRR, no murmur, no edema S1 S2 Gastrointestinal (Abdomen): normal bowel sounds, soft, nontender, no hepatosplenomegaly Clean dressing over laparoscopic surgical site Musculoskeletal: no cyanosis or clubbing, extremities motor strength 5/5 Neurologic: PERRL, EOMI, accommodation nl, no face palsy, no dysarthria Psychiatric: A+Ox3, euthymic affect Results & Data Results & Data ([facility]) Vital Signs (Past 12 Hours) Vital Signs Temp Pulse Pulse Resp BP Pulse Ox 09/18/20 12:28 36.6 C 95 H 18 126/76 98 09/18/20 11:26 36.5 C 93 H 18 104/63 98 09/18/20 10:58 37.0 C 67 18 114/71 96 09/18/20 10:51 36.6 C 92 H 18 127/72 99 09/18/20 10:32 36.5 C 81 18 111/66 99 09/18/20 10:19 36.4 C L 100 H 18 126/75 100 09/18/20 09:55 36.4 C L 135 H 16 135/82 100 09/18/20 09:45 96 H 16 142/81 H 100 09/18/20 09:35 102 H 16 148/87 H 100 09/18/20 09:25 163 H 18 155/94 H 99 09/18/20 09:15 36.4 C L 143 H 18 137/79 99 09/18/20 07:30 80 09/18/20 07:20 36.8 C 73 18 128/73 98 09/18/20 03:52 36.8 C 74 20 111/76 98 Laboratory Results Laboratory Results - last 24 hr 09/16/20 09/17/20 09/18/20 08:43 17:55 06:11 WBC 10.20 RBC 3.43 L Hgb 11.8 L Hct 36.2 L MCV 105.5 H D MCH 34.4 H MCHC 32.6 RDW Std Deviation 47.2 H RDW Coeff of Alfredo 12.2 Plt Count 121 L MPV 10.4 Sodium 139 Potassium 3.8 Chloride 103 Carbon Dioxide 31 Anion Gap 5.0 BUN 4 L D Creatinine 0.46 L Est Cr Clr Drug Dosing 76.3 Est GFR ( Amer) 119.3 Est GFR (Non-Af Amer) 102.9 BUN/Creatinine Ratio 9.0 L Glucose 90 Calcium 7.9 L Total Bilirubin 0.7 AST 45 H ALT 28 Alkaline Phosphatase 74 Total Protein 4.9 L Albumin 2.5 L Globulin 2.4 L Albumin/Globulin Ratio 1.0 Hepatitis A IgM Ab NON-REACTIVE Hep B Core IgM Ab NON-REACTIVE 09/18/20 06:11 WBC 9.97 RBC 3.01 L Hgb 10.4 L Hct 31.3 L MCV 104.0 H MCH 34.6 H MCHC 33.2 RDW Std Deviation 45.2 RDW Coeff of Alfredo 11.9 Plt Count 110 L MPV 11.1 H Sodium Potassium Chloride Carbon Dioxide Anion Gap BUN Creatinine Est Cr Clr Drug Dosing Est GFR ( Amer) Est GFR (Non-Af Amer) BUN/Creatinine Ratio Glucose Calcium Total Bilirubin AST ALT Alkaline Phosphatase Total Protein Albumin Globulin Albumin/Globulin Ratio Hepatitis A IgM Ab Hep B Core IgM Ab
[2020-09-18] MEDS ORDERED: ACETAMINOPHEN 325 MG TAB ONE (14:11)
[2020-09-18 18:40] LABS: Hematocrit (blood only) 26.4 % (37-47); Hemoglobin 8.9 g/dL (12.0-16.0); Mean Corpuscular Hemoglobin 34.8 pg (25-34); Mean Corpuscular Hgb Conc 33.7 g/dL (32-36); Mean Corpuscular Volume 103.1 fL (80-100); RDW Coefficient of Variation 11.9 % (11.5-14.5); Red Blood Count 2.56 M/uL (4.2-5.4); White Blood Count 8.02 K/uL (4.8-10.8)
[2020-09-18 19:11] LABS: Mean Platelet Volume 10.9 fL (7.4-10.4); Platelet Count 95 K/uL (130-400); Platelet Estimate Decreased (Normal)
[2020-09-18] MEDS: ACETAMINOPHEN 325 MG TAB PO PRN ×2 (19:23→23:32)
[2020-09-18] MEDS: FOLIC ACID 1 MG TAB PO SCH (19:28)
[2020-09-18] MEDS: MIRTAZAPINE TAB 15 MG TAB PO SCH (19:28)
[2020-09-18] MEDS: ESCITALOPRAM OXALATE 20 MG TAB PO SCH (19:28)
[2020-09-18] MEDS: CYANOCOBALAMIN 500 MCG TABLET (VITAMIN B-12) PO SCH (19:28)
[2020-09-19 00:20] LABS: Hematocrit (blood only) 25.7 % (37-47); Hemoglobin 8.7 g/dL (12.0-16.0)
[2020-09-19] MEDS: LACTATED RINGER'S 1,000 ML IV SCH (05:04)
[2020-09-19] MEDS: LEVOTHYROXINE SODIUM 75 MCG TABLET PO SCH (05:40)
[2020-09-19] MEDS: ACETAMINOPHEN 325 MG TAB PO PRN ×3 (05:58→15:27)
[2020-09-19 06:10] LABS: Hematocrit (blood only) 28.5 % (37-47); Hematocrit (blood only) 29.2 % (37-47); Hemoglobin 9.6 g/dL (12.0-16.0); Hemoglobin 9.7 g/dL (12.0-16.0); Mean Corpuscular Hemoglobin 34.4 pg (25-34); Mean Corpuscular Hemoglobin 34.8 pg (25-34); Mean Corpuscular Hgb Conc 33.2 g/dL (32-36); Mean Corpuscular Hgb Conc 33.7 g/dL (32-36); Mean Corpuscular Volume 103.3 fL (80-100); Mean Corpuscular Volume 103.5 fL (80-100); Mean Platelet Volume 10.8 fL (7.4-10.4); Platelet Count 107 K/uL (130-400); Platelet Count 108 K/uL (130-400); RDW Coefficient of Variation 12.3 % (11.5-14.5); RDW Standard Deviation 46.1 fL (36.4-46.3); Red Blood Count 2.76 M/uL (4.2-5.4); Red Blood Count 2.82 M/uL (4.2-5.4); White Blood Count 6.01 K/uL (4.8-10.8); White Blood Count 6.06 K/uL (4.8-10.8)
--- NOTE | 2020-09-19 06:17 | Surgery Progress Note ---
Date of Service September 19, 2020 Assessment & Plan (1) Nausea and vomiting: -GI evaluation felt that symptoms were biliary in nature and recommend cholecystectomy -surgery was performed yesterday -will plan on advancing diet today -if diet tolerated can be d/c from surgical perspective: -pt. notes she will be going to inpt. rehab prior to return home as above. feeling much better today. will advance diet. ok for d/c when ok with primary service. f/u in 1-2 weeks. Admission and Anticipated Discharge Date Admission Date: September 16, 2020 Subjective Pt. notes her pain is currently well controlled. No N/V. She has tolerated liquids since her surgery. No BM since surgery. Physical Exam Constitutional: + thin; no acute distress Neck: trachea midline Respiratory: normal respiratory effort, lungs clear to auscultation Cardiovascular: Rate/Rhythm: regular rate and regular rhythm Gastrointestinal (Abdomen): Percussion/Palpation: + abdomen tender (incisional ) and abdomen soft; no guarding Results & Data ([facility]) Vital Signs (Past 12 Hours) Vital Signs Temp Pulse Pulse Resp BP Pulse Ox 09/19/20 03:08 36.7 C 86 20 101/64 96 09/18/20 23:41 101 H 09/18/20 23:40 103 H 99/60 L 09/18/20 22:43 37.3 C 103 H 20 89/49 L 96 09/18/20 19:31 36.8 C 96 H 20 126/74 94 PG Care Time/CCT Total # of Minutes Spent Total Time Spent with Patient: Total time spent is greater than 50% in coordination of care (as documented) at patient's floor/unit and/or counseling patient: Coding Level of Care Code None Diagnoses Nausea and vomiting R11.2
[2020-09-19 06:41] LABS: Albumin Level 2.6 gm/dl (3.4-5.0); BUN Creatinine Ratio 11.8 (10-20); Calcium 8.3 mg/dl (8.5-10.1); Creatinine Clr Calc Pharmacy 47.9 ml/min; Est GFR (African American) 97.2; Est GFR (Non-African American) 83.8; Magnesium 1.5 mg/dl (1.8-2.4); Potassium 3.6 mmol/L (3.5-5.1)
[2020-09-19 07:01] LABS: Albumin Globulin Ratio 1.1 (0.9-2); Bilirubin,Total 2.5 mg/dl (0.2-1); Globulin 2.4 gm/dl (2.5-4.0); Phosphorus 2.9 mg/dl (2.5-4.9)
[2020-09-19] MEDS: PANTOprazole 40 MG TAB PO SCH (08:34)
--- NOTE | 2020-09-19 08:45 | Hospitalist Progress Note ---
Date of Service September 19, 2020 Assessment & Plan (1) GI bleed: (2) Nausea and vomiting: (3) Melena: 69yo F with a PMH of hypothyroidism, MDD, history of recurrent syncope and vertigo and other medical problems as below who presents from home with sudden onset dizziness, nausea, vomiting and one episode of melanotic stool at 0200. One episode of melanotic stool on morning of admission. Occasional use of ibuprofen. 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 12 deficiency for which she is now supplemented -Work up in 12/08: normal brain MRI, routine EEF and ZIO testing revealing multiple short runs of PSVT which was later evaluated by cardiology and not thought to be associated with near syncope Fall precautions Evaluated by PT/OT Referral has been made for rehab (7) Leukocytosis: WBC of 15, likely reactive Resolved No fevers or other signs of infection Monitor for now (8) LFT elevation: LFTs (Bilirubin, AST, Alk phos) were elevated on admission ERCP showed dilated CBD with sludge, sludge in gall bladder, incidental 8mm lesion in pancreatic body with fine needle aspiration. CBD sludge removed after sphincterotomy and stent place S/P laparoscopic cholecystectomy 09/18/20 Patient will need follow up with GI outpatient for follow up of results and removal of stents (9) Hypothyroidism: Continue levothyroxine (10) Depression: Continue SSRI DVT Ppx: SCDs Code status: FULL PCP: [facility] ([place]) Disposition : Awaiting rehab placement. Patient encouraged to ambulate with assistance Admission and Anticipated Discharge Date Admission Date: September 16, 2020 Subjective Patient seen and examined Had episode of asymptomatic sinus tachycardia yesterday evening up to 130s when she was going to the rest room that resolved at rest Reports feeling better No dizziness, nausea today No abd pain Yet to move bowel but passing flatus no fevers, chills No chest pain, cough, SOB Physical Exam Constitutional: + well hydrated; no acute distress Eyes: PERRL, conjunctivae normal, anicteric sclerae ENMT: external ear and nose normal, oropharynx normal Respiratory: normal respiratory effort, lungs clear to auscultation Cardiovascular: RRR, no murmur, no edema Gastrointestinal (Abdomen): normal bowel sounds, soft, nontender, no hepatosplenomegaly Musculoskeletal: no cyanosis or clubbing, extremities motor strength 5/5 Neurologic: PERRL, EOMI, accommodation nl, no face palsy, no dysarthria Psychiatric: A+Ox3, euthymic affect Results & Data Results & Data ([facility]) Vital Signs (Past 12 Hours) Vital Signs Temp Pulse Pulse Resp BP Pulse Ox 09/19/20 07:13 36.6 C 93 H 18 121/65 96 09/19/20 03:08 36.7 C 86 20 101/64 96 09/18/20 23:41 101 H 09/18/20 23:40 103 H 99/60 L 09/18/20 22:43 37.3 C 103 H 20 89/49 L 96 Laboratory Results Laboratory Results - last 24 hr 09/18/20 09/19/20 09/19/20 18:04 00:05 05:56 WBC 8.02 6.01 RBC 2.56 L 2.76 L Hgb 8.9 L 8.7 L 9.6 L Hct 26.4 L 25.7 L 28.5 L MCV 103.1 H 103.3 H MCH 34.8 H 34.8 H MCHC 33.7 33.7 RDW Std Deviation 45.0 46.1 RDW Coeff of Alfredo 11.9 12.3 Plt Count 95 L 108 L MPV 10.9 H 10.8 H Platelet Estimate Decreased L Sodium Potassium Chloride Carbon Dioxide Anion Gap BUN Creatinine Est Cr Clr Drug Dosing Est GFR ( Amer) Est GFR (Non-Af Amer) BUN/Creatinine Ratio Glucose Calcium Phosphorus Magnesium Total Bilirubin AST ALT Alkaline Phosphatase Total Protein Albumin Globulin Albumin/Globulin Ratio 09/19/20 09/19/20 05:56 05:56 WBC 6.06 RBC 2.82 L Hgb 9.7 L Hct 29.2 L MCV 103.5 H MCH 34.4 H MCHC 33.2 RDW Std Deviation 46.0 RDW Coeff of Alfredo 12.3 Plt Count 107 L MPV 11.0 H Platelet Estimate Sodium 142 Potassium 3.6 Chloride 106 Carbon Dioxide 33 H Anion Gap 3.0 BUN 9 D Creatinine 0.74 Est Cr Clr Drug Dosing 47.9 Est GFR ( Amer) 97.2 Est GFR (Non-Af Amer) 83.8 BUN/Creatinine Ratio 11.8 Glucose 87 Calcium 8.3 L Phosphorus 2.9 Magnesium 1.5 L Total Bilirubin 2.5 H D AST 1672 H ALT 507 H Alkaline Phosphatase 362 H D Total Protein 5.0 L Albumin 2.6 L Globulin 2.4 L Albumin/Globulin Ratio 1.1
--- NOTE | 2020-09-19 11:16 | Electrocardiogram Report ---
Test Reason : Blood Pressure : / mmHG Vent. Rate : 096 BPM Atrial Rate : 096 BPM P-R Int : 126 ms QRS Dur : 064 ms QT Int : 378 ms P-R-T Axes : 074 024 048 degrees QTc Int : 477 ms Poor data quality, interpretation may be adversely affected Normal sinus rhythm Diffuse Minor Nonspecific T wave abnormality Low voltage QRS Borderline ECG When compared with ECG of 17-SEP-2020 07:38, Nonspecific T wave abnormality now present Confirmed by Sergo Zuniga ([id number]) on 09/19/2020 11:16:44 AM Referred By: REFERRED SELF Confirmed By:Sergo Zuniga
[2020-09-19] MEDS ORDERED: MAGNESIUM SULFATE / D5W 1 GM/100 ML BAG IV ONE (17:45)
[2020-09-19] MEDS: HYDROCODONE/ACETAMOPHEN 5/325MG TAB PO PRN (20:46)
[2020-09-19] MEDS: MIRTAZAPINE TAB 15 MG TAB PO SCH (20:47)
[2020-09-19] MEDS: FOLIC ACID 1 MG TAB PO SCH (20:47)
[2020-09-19] MEDS: CYANOCOBALAMIN 500 MCG TABLET (VITAMIN B-12) PO SCH (20:47)
[2020-09-19] MEDS: ESCITALOPRAM OXALATE 20 MG TAB PO SCH (20:47)
[2020-09-20] MEDS: ACETAMINOPHEN 325 MG TAB PO PRN ×3 (04:09→15:06)
[2020-09-20] MEDS: LEVOTHYROXINE SODIUM 75 MCG TABLET PO SCH (04:09)
[2020-09-20 07:25] LABS: Hematocrit (blood only) 26.2 % (37-47); Hemoglobin 8.6 g/dL (12.0-16.0); Mean Corpuscular Hemoglobin 34.1 pg (25-34); Mean Corpuscular Hgb Conc 32.8 g/dL (32-36); Mean Platelet Volume 10.6 fL (7.4-10.4); Platelet Count 108 K/uL (130-400); RDW Coefficient of Variation 12.7 % (11.5-14.5); RDW Standard Deviation 47.8 fL (36.4-46.3); Red Blood Count 2.52 M/uL (4.2-5.4); White Blood Count 7.55 K/uL (4.8-10.8)
[2020-09-20] MEDS: PANTOprazole 40 MG TAB PO SCH ×2 (07:49→20:14)
[2020-09-20 08:01] LABS: Albumin Level 2.4 gm/dl (3.4-5.0); BUN Creatinine Ratio 13.1 (10-20); Calcium 8.3 mg/dl (8.5-10.1); Creatinine Clr Calc Pharmacy 79.7 ml/min; Est GFR (African American) 113.9; Est GFR (Non-African American) 98.2; Magnesium 1.5 mg/dl (1.8-2.4)
[2020-09-20 08:03] LABS: Albumin Globulin Ratio 0.9 (0.9-2); Globulin 2.6 gm/dl (2.5-4.0)
[2020-09-20] MEDS ORDERED: POTASSIUM PHOS 3 MMOL/1 ML INFUSION IV STA (08:46)
--- NOTE | 2020-09-20 09:16 | Surgery Progress Note ---
Date of Service September 20, 2020 Assessment & Plan (1) Nausea and vomiting: s/p laparoscopic cholecystectomy WBC 7.5 Patient tolerating a regular diet without nausea/vomiting Plan for discharge to rehab when deemed medically stable; is doing well from our standpoint Will need followup with Dr. Mendoza in clinic within 1-2 weeks Admission and Anticipated Discharge Date Admission Date: September 16, 2020 Subjective Patient seen at bedside. Says this AM she is feeling well, but has intermittent periods of feeling well vs. not. So far today she is tolerating a regular diet. Pain controlled with Tylenol. She did take some English last evening and said she was able to get a good nights sleep. Says she is starting to have + bm's. Physical Exam Physical Exam: awake/alert, sitting up eating breakfast Respiratory: normal respiratory effort Gastrointestinal (Abdomen): Inspection/Auscultation: + abdominal surgical incision (intact); abdomen not distended Percussion/Palpation: + abdomen tender (expected jonathan-incisional soreness, mostly R sided incisions) and abdomen soft Results & Data ([facility]) Vital Signs (Past 12 Hours) Vital Signs Temp Pulse Pulse Resp BP BP Pulse Ox 09/20/20 07:38 36.7 C 84 18 124/76 92 09/20/20 04:05 36.6 C 84 18 136/70 97 09/20/20 00:20 88 09/19/20 22:35 37.0 C 83 15 122/68 94 PG Care Time/CCT Total # of Minutes Spent Total Time Spent with Patient: Total time spent is greater than 50% in coordination of care (as documented) at patient's floor/unit and/or counseling patient: Coding Level of Care Code None Diagnoses Nausea and vomiting R11.2
[2020-09-20] MEDS ORDERED: POTASSIUM PHOSPHATE 30 MMOL in SODIUM CHLORIDE 0.9% 500 ML IV ONE (09:30)
[2020-09-20] MEDS: MAGNESIUM SULFATE / D5W 1 GM/100 ML BAG IV SCH ×2 (10:07→12:06)
--- NOTE | 2020-09-20 10:27 | Hospitalist Progress Note ---
Date of Service September 20, 2020 Assessment & Plan (1) GI bleed: (2) Nausea and vomiting: (3) Melena: 69yo F with a PMH of hypothyroidism, MDD, history of recurrent syncope and vertigo and other medical problems as below who presents from home with sudden onset dizziness, nausea, vomiting and one episode of melanotic stool at 0200. One episode of melanotic stool on morning of admission. Occasional use of ibuprofen. Hb was 14.4 on admission EGD showed normal esophagus, stomach, duodenal bulb and second portion of duodenum Hb has continued to drop. 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 12 deficiency for which she is now supplemented -Work up in 12/08: normal brain MRI, routine EEF and ZIO testing revealing multiple short runs of PSVT which was later evaluated by cardiology and not thought to be associated with near syncope Fall precautions Evaluated by PT/OT Referral has been made for rehab (7) Leukocytosis: WBC of 15, likely reactive Resolved No fevers or other signs of infection Monitor for now (8) LFT elevation: LFTs (Bilirubin, AST, Alk phos) were elevated on admission ERCP showed dilated CBD with sludge, sludge in gall bladder, incidental 8mm lesion in pancreatic body with fine needle aspiration. CBD sludge removed after sphincterotomy and stent place S/P laparoscopic cholecystectomy 09/18/20 Increased again yesterday after surgery Trending down today Patient will need follow up with GI outpatient for follow up of results and removal of stents (9) Hypothyroidism: Continue levothyroxine (10) Depression: Continue SSRI DVT Ppx: SCDs Code status: FULL PCP: Still ([place]) Disposition : Awaiting rehab placement. Patient encouraged to ambulate with assistance Admission and Anticipated Discharge Date Admission Date: September 16, 2020 Subjective Patient seen and examined Reports she had about 2 bowel movements yesterday, tarry colored Reports mild abd pain around surgical site well controlled with tylenol Reports occasional mild dizziness occasionally with walking. States she feels better every day No nausea, vomiting No fevers, chills No chest pain, SOB, PENA, palpitations No dysuria or freq Physical Exam Constitutional: + well hydrated; no acute distress Eyes: PERRL, conjunctivae normal, anicteric sclerae ENMT: external ear and nose normal, oropharynx normal Respiratory: normal respiratory effort, lungs clear to auscultation Cardiovascular: RRR, no murmur, no edema Gastrointestinal (Abdomen): normal bowel sounds, soft, nontender, no hepatosplenomegaly Clean dressing over surgical site Musculoskeletal: no cyanosis or clubbing, extremities motor strength 5/5 Neurologic: PERRL, EOMI, accommodation nl, no face palsy, no dysarthria Psychiatric: A+Ox3, euthymic affect Results & Data Results & Data ([facility]) Vital Signs (Past 12 Hours) Vital Signs Temp Pulse Pulse Resp BP BP Pulse Ox 09/20/20 08:30 78 09/20/20 07:38 36.7 C 84 18 124/76 92 09/20/20 04:05 36.6 C 84 18 136/70 97 09/20/20 00:20 88 09/19/20 22:35 37.0 C 83 15 122/68 94 Laboratory Results Laboratory Results - last 24 hr 09/20/20 09/20/20 07:03 07:03 WBC 7.55 RBC 2.52 L Hgb 8.6 L Hct 26.2 L MCV 104.0 H MCH 34.1 H MCHC 32.8 RDW Std Deviation 47.8 H RDW Coeff of Alfredo 12.7 Plt Count 108 L MPV 10.6 H Sodium 142 Potassium 3.0 L D Chloride 105 Carbon Dioxide 32 Anion Gap 5.0 BUN 7 Creatinine 0.53 L Est Cr Clr Drug Dosing 79.7 Est GFR ( Amer) 113.9 Est GFR (Non-Af Amer) 98.2 BUN/Creatinine Ratio 13.1 Glucose 84 Calcium 8.3 L Phosphorus 2.0 L Magnesium 1.5 L Total Bilirubin 1.0 D AST 408 H ALT 228 H Alkaline Phosphatase 308 H Total Protein 5.0 L Albumin 2.4 L Globulin 2.6 Albumin/Globulin Ratio 0.9
--- NOTE | 2020-09-20 13:38 | Gastroenterology Progress Note ---
Date of Service September 20, 2020 Assessment & Plan (1) Melena: Ms Sterling is a 69 yr old female who experienced black, loose BMs on her inital BMs after ERCP and surgery a few days ago. I suspect she has had a slow UGI bleed from spincterotomy but her BUN is normal arguing against an active or hemodynamically significant GI bleed. 1. Recommend increasing PPI to BID. 2. Continue to watch today. If further drop in Hb/Hct and further melena, then will consider EGD tomorrow. Present on Admission?: No Admission and Anticipated Discharge Date Admission Date: September 16, 2020 Supervising Physician Co-Signing Physician Notes I have personally seen and examined the patient with SATHYA Vann on 09/20/2020. Her note reflects my exam and findings. I agree with her impression and plan. Dark BM 3 days after ERCP and lap nawaf. C/W low grade bleeding from procedures/surgery. Follow H/H. PPI. No indication for repeat EGD at this point. Anirudh Cochran M.D. Subjective Ms. Sterling is a 69-year-old female who was admitted last week and underwent EGD with sphincterotomy and sweeping of the bile duct for choledocholithiasis, then underwent lap cholecystectomy. Today, GI is asked to reevaluate the patient because her hemoglobin has drifted down and she reports to black bowel movements this morning. She tells me that she had felt constipated had not had bowel movements for a few days, drank some prune juice which is what she does at home when she is constipated and then passed 2 small loose bowel movements this morning. She has some surgical abdominal pain but denies any epigastric burning. She denies any regular use of NSAIDs. She has had some mild nausea this morning no vomiting. Review of Systems Review of Systems: ROS: Gen: Denies weakness, fevers, weight loss Eyes: No eye redness, or pain, no recent vision changes Resp: No SOB, no cough Cardio: No palpitations/irregular beats, no chest pain GI: See HPI, otherwise negative : Denies pain on urination Skin: No jaundice, itching or new rashes Physical Exam Constitutional: WD/WN, vitals as above + thin (very) Eyes: PERRL, conjunctivae normal, anicteric sclerae ENMT: external ear and nose normal, oropharynx normal Neck: trachea midline, no thyromegaly Respiratory: normal respiratory effort, lungs clear to auscultation Cardiovascular: RRR, no murmur, no edema Gastrointestinal (Abdomen): Inspection/Auscultation: normal bowel sounds (somewhat hypoactive, but present) Percussion/Palpation: + abdomen tender (minimal epigastric and periumbilical tenderness) and abdomen soft Results & Data ([facility]) Vital Signs (Past 12 Hours) Vital Signs Temp Pulse Pulse Resp BP BP Pulse Ox 09/20/20 11:21 37.0 C 73 20 114/70 95 09/20/20 08:30 78 09/20/20 07:38 36.7 C 84 18 124/76 92 09/20/20 04:05 36.6 C 84 18 136/70 97 Laboratory Results 11.5->8.6, BUN 7. WBC 7.5, hematocrit 26, platelets 108, BUN 7, creatinine 0.53
[2020-09-20] MEDS: MAGNESIUM OXIDE 400 MG TAB PO SCH (20:13)
[2020-09-20] MEDS: FOLIC ACID 1 MG TAB PO SCH (20:13)
[2020-09-20] MEDS: ESCITALOPRAM OXALATE 20 MG TAB PO SCH (20:13)
[2020-09-20] MEDS: CYANOCOBALAMIN 500 MCG TABLET (VITAMIN B-12) PO SCH (20:14)
[2020-09-20] MEDS: MIRTAZAPINE TAB 15 MG TAB PO SCH (20:14)
[2020-09-20] MEDS: HYDROCODONE/ACETAMOPHEN 5/325MG TAB PO PRN (20:17)
[2020-09-21 04:50] VITALS: TEMP 98.4
[2020-09-21] MEDS: LEVOTHYROXINE SODIUM 75 MCG TABLET PO SCH (05:51)
[2020-09-21] MEDS: ACETAMINOPHEN 325 MG TAB PO PRN ×2 (06:10→13:17)
[2020-09-21 07:00] LABS: Hematocrit (blood only) 27.1 % (37-47); Hemoglobin 8.8 g/dL (12.0-16.0); Mean Corpuscular Hemoglobin 34.4 pg (25-34); Mean Corpuscular Hgb Conc 32.5 g/dL (32-36); Mean Corpuscular Volume 105.9 fL (80-100); Mean Platelet Volume 10.9 fL (7.4-10.4); Platelet Count 138 K/uL (130-400); RDW Standard Deviation 49.2 fL (36.4-46.3); Red Blood Count 2.56 M/uL (4.2-5.4); White Blood Count 7.78 K/uL (4.8-10.8)
[2020-09-21 07:32] LABS: Albumin Level 2.5 gm/dl (3.4-5.0); BUN Creatinine Ratio 12.9 (10-20); Calcium 8.3 mg/dl (8.5-10.1); Creatinine Clr Calc Pharmacy 88.5 ml/min; Est GFR (African American) 117.6; Est GFR (Non-African American) 101.5; Magnesium 2.2 mg/dl (1.8-2.4); Potassium 3.5 mmol/L (3.5-5.1)
[2020-09-21 07:36] LABS: Albumin Globulin Ratio 0.9 (0.9-2); Bilirubin,Total 0.6 mg/dl (0.2-1); Globulin 2.9 gm/dl (2.5-4.0); Total Protein 5.4 gm/dl (6.4-8.2)
[2020-09-21] MEDS: MAGNESIUM OXIDE 400 MG TAB PO SCH (07:47)
[2020-09-21] MEDS: PANTOprazole 40 MG TAB PO SCH (07:47)
[2020-09-21 11:08] VITALS: O2SAT 98
--- NOTE | 2020-09-21 11:30 | Discharge Summary ---
Date of Service September 21, 2020 Admission HPI Per Admitting Provider This is a 69yo F with a PMH of hypothyroidism, MDD, history of recurrent syncope and vertigo and other medical problems as below who presents from home with sudden onset dizziness, nausea, vomiting and one episode of melanotic stool at 0200. Patient got up during the night to get a glass of water around 0200 and developed sudden onset dizziness described as "wooziness", where her legs collapsed from under her and she fell to the ground, hitting her head. Denies loss of consciousness. Also at this time, developed sudden onset nausea with multiple bouts of vomiting that have continued since then. Emesis is bilious, without any visible blood. Also had a large bout of diarrhea at this time that was black and tarry. States she has this about once a week but has not undergone work-up for it. Not associated with abdominal pain. Denies any bright red blood in stool or on toilet paper. History of EGD in Jul 2017 with normal esophagus, irregular Z-line at 40cm from incisors, small hiatal hernia and fawad l stomach. Former smoker but quit in 2018. Does endorse using 400 mg Advil for headaches a few times per week. Endorses 1-2 glasses of wine per night. Denies fever, chills, visual changes, chest pain, palpitations, shortness of breath, abdominal pain or dysuria. 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 Has been seen by both neurology and cardiology in Nov 2019 for work up of syncope with normal brain MRI, routine EEF and ZIO testing revealing multiple short runs of PSVT which was later evaluated by cardiology and not thought to be associated with near syncope. Cardiology recommended that she get sleep medicine evaluation due to insomnia and increased salt and fluid intake. Does endorse taking [place] every morning for neuropathic pain in right hip. Admission Exam Per Admitting Provider General Appearance: WD/WN, vitals as above, thin, sitting up in bed, pleasant Head: normocephalic, atraumatic Eyes: normal inspection, PERRL, conjunctivae normal, anicteric sclerae ENT: external ear and nose normal, oropharynx normal Neck: normal visual inspection, trachea midline, no thyromegaly Respiratory: normal respiratory effort, lungs clear to auscultation, no wheeze, rales, rhonchi. No accessory muscle use Cardiovascular: regular rate, rhythm, no murmur appreciated, normal peripheral pulses, no BLE edema. Vessels: no JVD Chest: normal inspection of chest Abdomen/GI: normal bowel sounds, soft, nontender, no hepatosplenomegaly Extremities/Musculoskeletal: no cyanosis or clubbing, extremities motor strength 5/5 Neurologic: PERRL, EOMI, accommodation nl, no face palsy, no dysarthria, CN's II-XI intact bilaterally and moves all extremities Psychiatric: A+Ox3, + anxious Skin: no rashes, normal color, warm/dry Principal Diagnosis GI bleed Elevated liver enzymes S/p Common bile duct stent S/p Laparoscopic cholecystectomy Severe malnutrition Discharge Exam Constitutional + well hydrated; no acute distress Eyes PERRL, conjunctivae normal, anicteric sclerae ENMT external ear and nose normal, oropharynx normal Respiratory normal respiratory effort, lungs clear to auscultation Cardiovascular RRR, no murmur, no edema Gastrointestinal (Abdomen) normal bowel sounds, soft, nontender, no hepatosplenomegaly clean surgical sites Musculoskeletal no cyanosis or clubbing, extremities motor strength 5/5 Neurologic PERRL, EOMI, accommodation nl, no face palsy, no dysarthria Psychiatric A+Ox3, euthymic affect Discharge Data Allergies Allergy/AdvReac Type Severity Reaction Status Date / Time No Known Allergies Allergy Unverified 09/16/20 09:39 Consultations 09/16/20 11:02 ED Decision to Admit Stat 09/16/20 14:10 Consult Gastroenterology Routine 09/16/20 15:23 Consult Case Management - Discharge Planning Routine 09/17/20 16:25 Consult General Surgery Routine Procedures Performed Operation Date: 09/17/20 12:35 Actual Procedures p Endoscopic Retrograde Cholangiopancreatogram(Not Applicable) - Dallas plunkett MD s Upper Endoscopic Ultrasonography(Not Applicable) - Dallas Ramires MD Operation Date: 09/17/20 16:00 <No data on this case meets the specified criteria> Operation Date: 09/18/20 09:00 Actual Procedures p Laparoscopic Cholecystectomy - Tutu Mendoza, DO Ordered Studies 09/16/20 08:52 CT head/brain wo con Stat 09/16/20 14:37 US abdomen limited Routine 09/17/20 13:50 US upper EUS PACS images Routine 09/17/20 14:00 FL ERCP biliary ductal Routine Hospital Course (1) GI bleed: (2) Nausea and vomiting: (3) Melena: 69yo F with a PMH of hypothyroidism, MDD, history of recurrent syncope and vertigo and other medical problems as below who presents from home with sudden onset dizziness, nausea, vomiting and one episode of melanotic stool at 0200. One episode of melanotic stool on morning of admission. Occasional use of ibuprofen. Hb was 14.4 on admission EGD showed normal esophagus, stomach, duodenal bulb and second portion of duodenum Hb has continued to drop. 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 Discharged to [facility] (7) Leukocytosis: WBC of 15, likely reactive Resolved No fevers or other signs of infection (8) LFT elevation: LFTs (Bilirubin, AST, Alk phos) were elevated on admission ERCP showed dilated CBD with sludge, sludge in gall bladder, incidental 8mm lesion in pancreatic body with fine needle aspiration. CBD sludge removed after sphincterotomy and stent placed S/P laparoscopic cholecystectomy 09/18/20 LFT trending down EUS showed: Dilated CBD with sludge. Sludge in gallbladder. Incidental 8 mm lesion was identified in the pancreatic body. This seems like a carcinoid (neuroendocrine tumor). Fine needle aspiration performed. Patient will need follow up with GI outpatient for follow up of results and removal of stents (9) Hypothyroidism: Continue levothyroxine (10) Depression: Continue SSRI (11) Severe malnutrition: Boost TID recommended with meals Monitor Total Time Total Time Spent Total Time Spent (In Minutes): 50 Total Time Includes: Examination of the Patient, Discharge Planning, Medication Reconciliation and Communication With Other Providers Discharge Plan Discharge Items Patient Disposition: Transfer Inpatient Rehab Fac Reason For Visit: N/V, MELENA Discharge Diagnosis: GI bleed Elevated liver enzymes S/p Common bile duct stent S/p Laparoscopic cholecystectomy Severe malnutrition Activity: As commented below Activity Comment: Per PT recommendations Lifting: No more than 10 pounds Exercise/Sports: Wait until after follow-up appointment Non-emergency contact: Primary Care Provider, Surgeon and Aggregate Conveyor Operator Call non-emergency contact if: your pain is not controlled, your pain is worsening, your temperature is above 101, your wound has increased redness, your wound has increased drainage and your wound pain has increased Follow-up/Referrals: Tutu Mendoza DO [Surgeon] - Kalie Vitale D.O. [Primary Care Provider] - (Date & Time 09/24/2020 11:00 AM Provider SATHYA Tran Department Internal Med/Pediatrics, [place] ) Diet: Regular Diet Comment: Add nutritional supplement (Boost with each meal) Ambulatory Orders: Basic Metabolic Panel (Routine) Timeframe: 3 Days Location: Determined by Patient Ordered By: Hearnashwin Burkekashanti Magnesium (Routine) Timeframe: 3 Days Location: Determined by Patient Ordered By: Hearn Lissa Ezekwem Phosphorus (Routine) Timeframe: 3 Days Location: Determined by Patient Ordered By: Hearn I. Ezekashanti Addtl Attending Provider Instructions: Ms Sterling. You came to the hospital complaining of nasuea, vomiting, melanotic stool and dizziness. You were evaluated extensively. Your hemoglobin dropped. You had endoscopy (EGD) which did not show any bleeding in the upper part of your bowels. Your liver enzymes were also elevated. You had ERCP and needed a stent in the common bile duct and fine needle aspiration of an incidental lesion on pancreas. Your symptoms are resolved You are being discharged to rehab. It is very important that you follow up with Gastroenterology for further evaluation and management including removal of the common bile ducts in the future, follow up of pathology results of the fine needle aspirate, colonoscopy, etc. Continue pantoprazole twice daily until seen by Gastroenterology. It is very important that you follow up with your Primary Doctor for further management of your hearing problems and your other medical problems. Please continue to take boost with your meals. You aare also discharged on few day doses of magnesium. Please do blood tests (Basic metabolic panel, magnesium, phosphorus levels) in 3 days at rehab and follow up the results with your Primary Doctor or doctor at rehab It was a pleasure taking care of you. Pending Studies at Discharge: Yes Studies:: pathology reports Stand-Alone Forms: My [facility] Skilled Items Patient informed of condition?: Yes DNR: No Discharge Level of Care: Acute rehab Communicable Disease: No Discharge Prognosis: Stable Lines: None Urinary Catheter: No Medications and DC Order Prescriptions: New acetaminophen 325 mg Tablet 650 mg PO Q6H PRN (Reason: pain) Qty: 30 RF: 0 magnesium oxide 400 mg (241.3 mg magnesium) Tablet 400 mg PO BID 5 Days Qty: 10 RF: 0 pantoprazole 40 mg Tablet,Delayed Release (Dr/Ec) 40 mg PO BID 30 Days Qty: 60 RF: 0 Continued cyanocobalamin (vitamin B-12) [Vitamin B-12] 1,000 mcg Tablet 1,000 mcg PO PM RF: 0 levothyroxine 75 mcg Tablet 75 mcg PO QAM RF: 0 folic acid 1 mg Tablet 1 mg PO PM RF: 0 mirtazapine 15 mg Tablet 15 mg PO HS RF: 0 escitalopram oxalate 20 mg Tablet 20 mg PO PM RF: 0 hydrocodone-acetaminophen 5-325 mg tablet 1 tab PO DAILY PRN (Reason: Pain) RF: 0 Discharge Orders: Discharge Order (Routine); Ordered 09/21/20 Ordered By: Nadiya Herrera Admission Data Admit Date/Time: 09/16/20 12:15 Attending Provider: Nadiya Herrera I. Admit Provider: Sandra Mathis Primary Care Provider: Kalie Vitale Other Providers: Sandra Mathis ; Dallas Ramires ; Tutu Mendoza ; [facility] Other Interventions: Discharge Summary Assessment (RN) Last Done: 09/21/20 11:32
[2020-09-21 11:33] VITALS: BP 136/70; PULSE 88
--- NOTE | 2020-09-21 12:17 | Gastroenterology Progress Note ---
Date of Service September 21, 2020 Assessment & Plan (1) Melena: Ms Sterling is a 69 yr old female who experienced black, loose BMs on her initial BMs after ERCP and surgery a few days ago. I suspect she has had a slow UGI bleed from sphincterotomy but her BUN is normal arguing against an active or hemodynamically significant GI bleed. Would DC on low dose BID PPI with OP GI follow up. Will likely order OP colonoscopy as most recent in 2012. Per primary hospitalist, the OP GI appt was already made. GI will sign off. Admission and Anticipated Discharge Date Admission Date: September 16, 2020 Supervising Physician Co-Signing Physician Notes I have personally seen and examined the patient with SATHYA Vann on 09/21/2020. Her note reflects my exam and findings. I agree with her impression and plan. Most likely self limited bleeding from surgery/procedure. No further BMs. Anirudh Cochran M.D. Subjective Ms. Sterling is a 69-year-old female who was admitted last week with c/o melena and underwent EGD (normal), then EUS/ERCP with sphincterotomy and sweeping of the bile duct for choledocholithiasis, then underwent lap cholecystectomy. Melena continues though small black BMs and Hb relatively stable considering that she has undergone recent surgery. Most recent BM yesterday afternoon, small volume black. Review of Systems Review of Systems: ROS: Gen: Denies weakness, fevers, weight loss Eyes: No eye redness, or pain, no recent vision changes Resp: No SOB, no cough Cardio: No palpitations/irregular beats, no chest pain GI: See HPI, otherwise negative : Denies pain on urination Skin: No jaundice, itching or new rashes Physical Exam Constitutional: WD/WN, vitals as above + thin (very) Eyes: PERRL, conjunctivae normal, anicteric sclerae ENMT: external ear and nose normal, oropharynx normal Neck: trachea midline, no thyromegaly Respiratory: normal respiratory effort, lungs clear to auscultation Cardiovascular: RRR, no murmur, no edema Gastrointestinal (Abdomen): Inspection/Auscultation: normal bowel sounds (somewhat hypoactive, but present) Percussion/Palpation: + abdomen tender (minimal epigastric and periumbilical tenderness) and abdomen soft Results & Data ([facility]) Vital Signs (Past 12 Hours) Vital Signs Temp Pulse Pulse Resp BP BP Pulse Ox 09/21/20 11:32 36.9 C 88 89 18 136/70 134/79 98 09/21/20 11:07 36.9 C 89 18 134/79 98 09/21/20 08:01 36.9 C 73 18 124/76 93 09/21/20 04:00 36.9 C 83 18 134/80 98 Laboratory Results WBC 7.7, Hb 8.8, Hct 27, Plt 138, BUN 6, Cr 0.48. Diagnostic Findings EGD 09/17/20: The examined esophagus was normal. The entire examined stomach was normal. The duodenal bulb and second portion of the duodenum were normal. - Normal esophagus. - Normal stomach. - Normal duodenal bulb and second portion of the duodenum. - Perform an upper endoscopic ultrasound (UEUS) today.
== END 2020-09-21 14:28 | DRG 417 ==
LOC: ED 08:24 → 2W 12:15 → SUATTDRO 12:15 → 2W 13:52
DX: R55 Syncope and collapse; K44.9 Diaphragmatic hernia without obstruction or gangrene; E87.6 Hypokalemia; F32.9 Major depressive disorder, single episode, unspecified; K80.20 Calculus of gallbladder without cholecystitis without obstruction; E43 Unspecified severe protein-calorie malnutrition; K92.1 Melena; Z79.899 Other long term (current) drug therapy; Z68.1 Body mass index [BMI] 19.9 or less, adult; E03.9 Hypothyroidism, unspecified

== ENCOUNTER 2021-01-16 14:31 | Inpatient (IN) ==
[2021-01-16] MEDS ORDERED: SODIUM CHLORIDE 0.9% 1000ML 1,000 ML IV ONE ×2 (14:45→16:36)
[2021-01-16] MEDS ORDERED: ONDANSETRON INJ 2 MG/ML 2 ML VIAL IV STA ×2 (14:45→16:36)
[2021-01-16] MEDS ORDERED: KETOROLAC TROMETHAMINE 15 MG/ML VIAL IV STA (14:45)
--- NOTE | 2021-01-16 15:01 | Emergency Department Note ---
History of Present Illness General Chief Complaint: Abdominal Pain Stated Complaint: ABDOMINAL PAIN Time Seen by Provider: 01/16/21 14:37 History of Present Illness Provider Complaint: abdominal pain Onset (ago): hour(s) (12) Pain Consistency: constant Location: LLQ Radiation: none Severity: moderate Maximum Pain Intensity: 4 Current Pain Intensity: 4 Quality: + stabbing and + sharp Relieved By: + nothing Exacerbated By: + nothing Context: no foreign travel, no recent antibiotic use and no recent injury Associated Symptoms: + nausea and + vomiting; no fever, no chills, no constipation, no dysuria, no hematemesis, no hematochezia, no melena, no hematuria, no headache, no neck pain, no back pain and no chest pain Home Medications Medication Instructions Recorded Confirmed Type cyanocobalamin (vitamin B-12) 1,000 mcg PO PM 09/16/20 01/16/21 History [Vitamin B-12] folic acid 1 mg PO PM 09/16/20 01/16/21 History hydrocodone-acetaminophen 1 tab PO Q8 PRN 09/16/20 01/16/21 History mirtazapine 15 mg PO HS PRN 09/16/20 01/16/21 History acetaminophen 650 mg PO Q6H PRN #30 tab 09/21/20 01/16/21 Rx ascorbic acid (vitamin C) [Vitamin 250 mg PO DAILY 01/16/21 01/16/21 History C] cholecalciferol (vitamin D3) 0 mcg PO DAILY 01/16/21 01/16/21 History [Vitamin D3] escitalopram oxalate 10 mg PO DAILY 01/16/21 01/16/21 History hydroxyzine HCl 25 - 50 mg PO Q6 PRN 01/16/21 01/16/21 History levothyroxine 100 mcg PO DAILY 01/16/21 01/16/21 History zinc sulfate 220 mg PO DAILY 01/16/21 01/16/21 History Allergies Allergy/AdvReac Type Severity Reaction Status Date / Time No Known Allergies Allergy Unverified 01/16/21 15:15 Past Med/Surg History Medical History (Updated 01/16/21 @ 16:48 by Berto Jasso) Depression Hypokalemia Hypomagnesemia Hypothyroidism Orthostatic hypotension Severe malnutrition Surgical History (Updated 01/16/21 @ 15:00 by Berto Jasso) H/O tubal ligation History of appendectomy History of ERCP History of tonsillectomy S/P laparoscopic cholecystectomy Family History Other Alzheimer disease Myocardial infarction Social History Smoking Status: Former smoker Tobacco Type: Cigarettes Years Smoked: 31; Hx Alcohol Use: Yes Alcohol type: wine Alcohol Intake Frequency: 4 or More x per/Week Hx Substance Use: No Preferred Language: Syriac Communication Ability: Effective Merchandising Manager Required: No Beliefs That Will Affect Care: Catholic marital status: Current Living Situation: Alone How many Children do You have: 1 Feels Safe at Home: Yes Assistive Devices: Walker Review of Systems A total of 10 systems reviewed and were otherwise negative Physical Exam Vital Signs: Vital Signs - 24 hr 01/16/21 14:33 01/16/21 16:08 Temperature 36.7 C Temperature Source Oral Pulse Rate 107 H Pulse Rate [Apical ] 80 Respiratory Rate 16 18 Respiratory Effort / Characteristics Non-Labored Sponta neous Respiratory Depth Normal Respiratory Patter n Regular Blood Pressure 143/82 H Blood Pressure [Ri ght Arm] 127/67 Blood Pressure Lolis n 102 Blood Pressure Lolis n [Right Arm] 87 Blood Pressure Pos ition Sitting Pulse Oximetry 95 98 Oxygen Delivery Me thod Room Air Room Air Sepsis Recent Feve r Within 48 Hours No Sepsis New/Unexpla ined Change in Men amada Status N/A Sepsis Action Take n by Nursing No Action Required Physical Exam: Physical Exam GENERAL: She is oriented to person, place, and time. She appears well-developed and well-nourished. She does not appear distressed. HENT: Exam performed. -Head: Normocephalic and atraumatic. -Right Ear: External ear normal. No mastoid tenderness. -Left Ear: External ear normal. No mastoid tenderness. -Mouth/Throat: The oropharynx is clear and moist. No trismus in the jaw. No dental abscesses or uvula swelling. No oropharyngeal exudate or tonsillar abscesses. EYES: Conjunctivae and EOM are normal. Pupils are equal, round, and reactive to light. Right eye exhibits no discharge. Left eye exhibits no discharge. No scleral icterus. NECK: Normal range of motion. Neck supple. No JVD present. No spinous process tenderness present. No carotid bruit present. No rigidity. No tracheal deviation and normal range of motion present. No Brudzinski's sign and no Kernig's sign noted. CV: Normal rate, regular rhythm, normal heart sounds and intact distal pulses. There is no peripheral edema. Palpable radial pulses bue. PULM/CHEST: Effort normal and breath sounds normal. No respiratory distress. No stridor. She has no wheezes. She has no rales. -Chest Wall: She exhibits no tenderness. ABD: Guarding of the abdomen over the left lower quadrant. She has no distension. No mass is present. There is tenderness to palpation of the right lower quadrant and left lower quadrant. MUSC/SKEL: Normal range of motion. There is no peripheral edema, tenderness or deformity. LYMPH: No cervical adenopathy. NEURO: She is alert and oriented to person, place, and time. She has normal strength. No cranial nerve deficit or sensory deficit. Coordination and gait normal. GCS eye subscore is 4. GCS verbal subscore is 5. GCS motor subscore is 6. Cerebellar tests wnl. SKIN: Skin is warm and dry. She is not diaphoretic. PSYCH: She has a normal mood and affect. Behavior is normal. Judgment and thought content normal. Course Course 1437: The patient was evaluated in room C2. A complete history and physical exam was performed. 1645: Vital signs stable. Labs show an elevated lipase and above 4000. CT confirms pancreatitis. [facility]. [facility] Medications Sodium Chloride (Nss 1000ml) 1,000 mls @ 999 mls/hr IV .Q1H1M ONE Stop: 01/16/21 17:36 Last Admin: 01/16/21 16:43 Dose: 999 mls/hr Documented by: [id number] Discontinued Medications Sodium Chloride (Nss 1000ml) 1,000 mls @ 999 mls/hr IV .Q1H1M ONE Stop: 01/16/21 15:45 Last Admin: 01/16/21 15:25 Dose: 999 mls/hr Documented by: [id number] Ioversol (Ioversol 100ml) 94 ml IV ONCE ONE Stop: 01/16/21 15:56 Last Admin: 01/16/21 15:55 Dose: 94 ml Documented by: [id number] Ketorolac Tromethamine (Ketorolac Tromethamine 15 Mg/Ml Vial) 15 mg IV NOW STA Stop: 01/16/21 14:46 Last Admin: 01/16/21 15:25 Dose: 15 mg Documented by: [id number] Morphine Sulfate (Morphine Sulfate 4 Mg/Ml 1 Ml Carp\Vial) 4 mg IV NOW STA Stop: 01/16/21 16:37 Last Admin: 01/16/21 16:43 Dose: 4 mg Documented by: [id number] Ondansetron HCl (Ondansetron Inj 2 Mg/Ml 2 Ml Vial) 4 mg IV NOW STA Stop: 01/16/21 14:46 Last Admin: 01/16/21 16:11 Dose: Not Given Documented by: [id number] Ondansetron HCl (Ondansetron Inj 2 Mg/Ml 2 Ml Vial) 4 mg IV NOW STA Stop: 01/16/21 16:37 Last Admin: 01/16/21 16:43 Dose: 4 mg Documented by: [id number] Medical Decision Making Laboratory Data Result diagrams: 01/16/21 15:13 01/16/21 15:13 Lab Results 01/16/21 01/16/21 01/16/21 Range/Units 15:13 15:13 15:21 WBC 12.55 H (4.8-10.8) K/uL RBC 3.84 L (4.2-5.4) M/uL Hgb 12.8 (12.0-16.0) g/dL POC Hgb 13.3 (12.0-16.0) g/dl Hct 37.4 (37-47) % POC Hct 39 (37-47) % MCV 97.4 (80-100) fL MCH 33.3 (25-34) pg MCHC 34.2 (32-36) g/dL RDW Std Deviation 48.2 H (36.4-46.3) fL RDW Coeff of Alfredo 13.7 (11.5-14.5) % Plt Count 279 (130-400) K/uL MPV 9.2 (7.4-10.4) fL Immature Gran % (Auto) 0.4 % Neut % (Auto) 67.5 % Lymph % (Auto) 18.6 % [place] % (Auto) 10.6 % Eos % (Auto) 2.8 % Baso % (Auto) 0.1 % Neut # (Auto) 8.48 H (1.4-6.5) K/uL Lymph # (Auto) 2.33 (1.2-3.4) K/uL [place] # (Auto) 1.33 H (0.11-0.59) K/uL Eos # (Auto) 0.35 (0-0.5) K/uL Baso # (Auto) 0.01 (0-0.2) K/uL Immature Gran # (Auto) 0.05 H (0.00-0.02) K/uL POC Sodium 135 (135-144) mmol/L Sodium 139 (136-145) mmol/L POC Potassium 4.0 (3.3-5.0) mmol/L Potassium 4.0 (3.5-5.1) mmol/L POC Chloride 102 (101-112) mmol/L Chloride 103 (98-107) mmol/L Carbon Dioxide 21 (21-32) mmol/L POC Total CO2 22 L (24-31) mmol/L Anion Gap 15.0 H (3-11) POC Anion Gap 16.0 (16-25) mmol/L POC BUN 6 L (7-18) mg/dl BUN 6 L (7-18) mg/dl Creatinine 0.62 (0.6-1.2) mg/dl POC Creatinine 0.5 L (0.6-1.3) mg/dl Est Cr Clr Drug Dosing 69.4 ml/min Est GFR ( Amer) 107.4 Est GFR (Non-Af Amer) 92.7 BUN/Creatinine Ratio 10.3 (10-20) Glucose 84 (70-99) mg/dl POC Glucose (other) 86 (70-99) mg/dl Calcium 9.1 (8.5-10.1) mg/dl POC Ioniz Calcium Clemencia 1.14 (1.12-1.32) mmol/l Total Bilirubin 0.7 (0.2-1) mg/dl Direct Bilirubin < 0.1 (0-0.2) mg/dl AST 18 (15-37) U/L ALT 20 (12-78) U/L Alkaline Phosphatase 97 (45-117) U/L Total Protein 7.1 (6.4-8.2) gm/dl Albumin 3.5 (3.4-5.0) gm/dl Lipase 4139 H (73-393) U/L Urine Color Urine Appearance (Clear) Urine pH (4.5-7.5) Ur Specific [place] (1.000-1.030) Urine Protein (Negative) Urine Glucose (UA) (Negative) Urine Ketones (Negative) Urine Blood (Negative) Urine Nitrite (Negative) Urine Bilirubin (Negative) Urine Urobilinogen (Negative) Ur Leukocyte Esterase (Negative) Urine WBC (Auto) (0-5) /hpf Urine RBC (Auto) (0-4) /hpf U Hyaline Cast (Auto) (0-5) /lpf U Epithel Cells (Auto) (0-5) /lpf Urine Bacteria (Auto) (Negative) 01/16/21 Range/Units 16:09 WBC (4.8-10.8) K/uL RBC (4.2-5.4) M/uL Hgb (12.0-16.0) g/dL POC Hgb (12.0-16.0) g/dl Hct (37-47) % POC Hct (37-47) % MCV (80-100) fL MCH (25-34) pg MCHC (32-36) g/dL RDW Std Deviation (36.4-46.3) fL RDW Coeff of Alfredo (11.5-14.5) % Plt Count (130-400) K/uL MPV (7.4-10.4) fL Immature Gran % (Auto) % Neut % (Auto) % Lymph % (Auto) % [place] % (Auto) % Eos % (Auto) % Baso % (Auto) % Neut # (Auto) (1.4-6.5) K/uL Lymph # (Auto) (1.2-3.4) K/uL [place] # (Auto) (0.11-0.59) K/uL Eos # (Auto) (0-0.5) K/uL Baso # (Auto) (0-0.2) K/uL Immature Gran # (Auto) (0.00-0.02) K/uL POC Sodium (135-144) mmol/L Sodium (136-145) mmol/L POC Potassium (3.3-5.0) mmol/L Potassium (3.5-5.1) mmol/L POC Chloride (101-112) mmol/L Chloride (98-107) mmol/L Carbon Dioxide (21-32) mmol/L POC Total CO2 (24-31) mmol/L Anion Gap (3-11) POC Anion Gap (16-25) mmol/L POC BUN (7-18) mg/dl BUN (7-18) mg/dl Creatinine (0.6-1.2) mg/dl POC Creatinine (0.6-1.3) mg/dl Est Cr Clr Drug Dosing ml/min Est GFR ( Amer) Est GFR (Non-Af Amer) BUN/Creatinine Ratio (10-20) Glucose (70-99) mg/dl POC Glucose (other) (70-99) mg/dl Calcium (8.5-10.1) mg/dl POC Ioniz Calcium Clemencia (1.12-1.32) mmol/l Total Bilirubin (0.2-1) mg/dl Direct Bilirubin (0-0.2) mg/dl AST (15-37) U/L ALT (12-78) U/L Alkaline Phosphatase (45-117) U/L Total Protein (6.4-8.2) gm/dl Albumin (3.4-5.0) gm/dl Lipase (73-393) U/L Urine Color Yellow Urine Appearance Cloudy A (Clear) Urine pH 5.0 (4.5-7.5) Ur Specific [place] 1.018 (1.000-1.030) Urine Protein Negative (Negative) Urine Glucose (UA) Negative (Negative) Urine Ketones Trace H (Negative) Urine Blood Negative (Negative) Urine Nitrite Negative (Negative) Urine Bilirubin Negative (Negative) Urine Urobilinogen Negative (Negative) Ur Leukocyte Esterase Trace H (Negative) Urine WBC (Auto) 1-5 (0-5) /hpf Urine RBC (Auto) 0-4 (0-4) /hpf U Hyaline Cast (Auto) 1-5 (0-5) /lpf U Epithel Cells (Auto) 10-20 H (0-5) /lpf Urine Bacteria (Auto) Negative (Negative) Imaging Data Radiologist's Impression: CT OF THE ABDOMEN AND PELVIS WITH CONTRAST CLINICAL HISTORY: Left lower quadrant abdominal pain. COMPARISON STUDY: Right upper quadrant ultrasound September 16, 2020. TECHNIQUE: Following IV administration of 94 mL of Optiray-320, axial images of the abdomen and pelvis were obtained from the lung bases to the proximal femurs. Images were reviewed in the axial, sagittal, and coronal planes. IV contrast was administered without complication. Automated exposure control was utilized for the study. A dose lowering technique was utilized adhering to the principles of ALARA. CT DOSE: 239.13 mGy.cm FINDINGS: Lung bases are unremarkable. No pneumatosis, free air or portal venous gas is present. There is trace pneumobilia. Mild biliary ductal dilatation is noted. The common bile duct measures 7 mm status post cholecystectomy. Note is made of mild infiltration adjacent to the pancreatic body and tail. There is a 1 cm round hypodensity within the pancreas on image 96 of 391. This is within the pancreatic body. There is no pancreatic ductal dilatation. Note is made of a rim-enhancing fluid collection along the greater curvature of the stomach that measures 7.2 x 3.2 cm. Wall thickening of the stomach is noted. This is most evident within the gastric antrum. The splenic vein is attenuated but patent. No hepatic lesions are present. A left renal cyst is present. There is no hydrone phrosis. Note is made of colonic diverticulosis without evidence for acute diverticulitis. A small amount of fluid within the pelvis is noted no acute fracture or suspicious lesion is identified within visualized skeletal structures. IMPRESSION: 1. Infiltration adjacent to the pancreatic body and tail suggestive of acute pancreatitis. 7.2 x 3.2 cm perigastric fluid collection along the greater curvature of the stomach. This is likely related to acute pancreatitis and favors an acute peripancreatic fluid collection. A 1 cm peripancreatic hypodense within the pancreatic body is also likely related to acute pancreatitis. No evidence for gland necrosis. Mildly attenuated but patent splenic vein. Associated varices. 2. Wall thickening of the stomach which may be reactive or represent gastritis. 3. Mild dilatation of the common bile duct which may be related to cholecystectomy. This could be correlated with liver function tests. Trace pneumobilia. 4. Colonic diverticulosis without evidence for acute diverticulitis. 5. Small amount of fluid within the pelvis. ACT 112: Negative or not required by law. Electronically signed by: Rafael Dumont M.D. 01/16/2021 4:32 PM Dictated: 01/16/21 1615Transcribed: 01/16/21 1627 MDM Narrative Vital signs stable. Labs show an elevated lipase and above 4000. CT confirms pancreatitis. [facility] Impression & Plan Pancreatitis Discharge Plan Visit Data Chief Complaint: Abdominal Pain Stated Complaint: ABDOMINAL PAIN ED Provider: Berto Jasso Discharge Problem: Pancreatitis Patient Disposition: Admitted As Inpatient Forms Stand Alone Forms: [facility] Prescriptions Prescriptions: No Action cyanocobalamin (vitamin B-12) [Vitamin B-12] 1,000 mcg Tablet 1,000 mcg PO PM RF: 0 folic acid 1 mg Tablet 1 mg PO PM RF: 0 mirtazapine 15 mg Tablet 15 mg PO HS PRN (Reason: Sleep) RF: 0 hydrocodone-acetaminophen 5-325 mg tablet 1 tab PO Q8 PRN (Reason: Pain) RF: 0 acetaminophen 325 mg Tablet 650 mg PO Q6H PRN (Reason: pain) Qty: 30 RF: 0 levothyroxine 100 mcg tablet 100 mcg PO DAILY RF: 0 zinc sulfate 220 mg tablet 220 mg PO DAILY RF: 0 ascorbic acid (vitamin C) [Vitamin C] 250 mg Tablet 250 mg PO DAILY RF: 0 hydroxyzine HCl 25 mg tablet 25 - 50 mg PO Q6 PRN (Reason: Anxiety) RF: 0 escitalopram oxalate 10 mg tablet 10 mg PO DAILY RF: 0 cholecalciferol (vitamin D3) [Vitamin D3] 25 mcg (1,000 unit) Tablet 0 mcg PO DAILY RF: 0 Referrals Referrals: Kalie Vitale D.O. [Primary Care Provider] - Discharge Problem: Pancreatitis Qualifiers: Chronicity: acute Pancreatitis type: unspecified pancreatitis type Acute pancreatitis complication: unspecified Qualified Code(s): K85.90 - Acute pancreatitis without necrosis or infection, unspecified
[2021-01-16 15:28] LABS: Basophils # (auto) 0.01 K/uL (0-0.2); Basophils % (auto) 0.1 %; Eosinophils # (auto) 0.35 K/uL (0-0.5); Eosinophils % (auto) 2.8 %; Hematocrit (blood only) 37.4 % (37-47); Hemoglobin 12.8 g/dL (12.0-16.0); Immature Granulocytes # (auto) 0.05 K/uL (0.00-0.02); Immature Granulocytes % (auto) 0.4 %; Lymphocytes # (auto) 2.33 K/uL (1.2-3.4); Lymphocytes % (auto) 18.6 %; Mean Corpuscular Hemoglobin 33.3 pg (25-34); Mean Corpuscular Hgb Conc 34.2 g/dL (32-36); Mean Corpuscular Volume 97.4 fL (80-100); Mean Platelet Volume 9.2 fL (7.4-10.4); Monocytes # (auto) 1.33 K/uL (0.11-0.59); Monocytes % (auto) 10.6 %; Neutrophils # (auto) 8.48 K/uL (1.4-6.5); Neutrophils % (auto) 67.5 %; Platelet Count 279 K/uL (130-400); RDW Coefficient of Variation 13.7 % (11.5-14.5); RDW Standard Deviation 48.2 fL (36.4-46.3); Red Blood Count 3.84 M/uL (4.2-5.4); White Blood Count 12.55 K/uL (4.8-10.8)
[2021-01-16 15:39] LABS: iSTAT Creatinine 0.5 mg/dl (0.6-1.3); iSTAT Hemoglobin 13.3 g/dl (12.0-16.0); iSTAT Ionized Calcium 1.14 mmol/l (1.12-1.32)
[2021-01-16 15:45] LABS: Alanine Aminotransferase 20 U/L (12-78); Albumin Level 3.5 gm/dl (3.4-5.0); Aspartate Aminotransferase 18 U/L (15-37); BUN Creatinine Ratio 10.3 (10-20); Bilirubin Direct < 0.1 mg/dl (0-0.2); Blood Urea Nitrogen 6 mg/dl (7-18); Calcium 9.1 mg/dl (8.5-10.1); Carbon Dioxide 21 mmol/L (21-32); Chloride 103 mmol/L (98-107); Creatinine Clr Calc Pharmacy 69.4 ml/min; Est GFR (African American) 107.4; Est GFR (Non-African American) 92.7; Glucose 84 mg/dl (70-99); Sodium 139 mmol/L (136-145)
[2021-01-16 15:48] LABS: Alkaline Phosphatase 97 U/L (45-117); Bilirubin,Total 0.7 mg/dl (0.2-1); Lipase 4139 U/L (73-393); Total Protein 7.1 gm/dl (6.4-8.2)
[2021-01-16] MEDS ORDERED: OPTIRAY 320 100ml IV ONE (15:55)
[2021-01-16 16:18] LABS: Appearance Urine Cloudy (Clear); Bacteria Urine Automated Negative (Negative); Bilirubin Urine Negative (Negative); Blood Urine Negative (Negative); Color Urine Yellow; Glucose Urine UA Negative (Negative); Ketones Urine Trace (Negative); Leukocyte Esterase Urine Trace (Negative); Nitrite Urine Negative (Negative); Protein Urine Negative (Negative); RBC Urine Automated 0-4 /hpf (0-4); Specific Gravity Urine 1.018 (1.000-1.030); Urobilinogen Urine Negative (Negative)
--- NOTE | 2021-01-16 16:34 | CT Scan Report ---
CT OF THE ABDOMEN AND PELVIS WITH CONTRAST CLINICAL HISTORY: Left lower quadrant abdominal pain. COMPARISON STUDY: Right upper quadrant ultrasound September 16, 2020. TECHNIQUE: Following IV administration of 94 mL of Optiray-320, axial images of the abdomen and pelvi s were obtained from the lung bases to the proximal femurs. Images were reviewed in the axial, sagitt al, and coronal planes. IV contrast was administered without complication. Automated exposure contro l was utilized for the study. A dose lowering technique was utilized adhering to the principles of A BETH[place]. CT DOSE: 239.13 mGy.cm FINDINGS: Lung bases are unremarkable. No pneumatosis, free air or portal venous gas is present. Ther e is trace pneumobilia. Mild biliary ductal dilatation is noted. The common bile duct measures 7 mm s tatus post cholecystectomy. Note is made of mild infiltration adjacent to the pancreatic body and rafi l. There is a 1 cm round hypodensity within the pancreas on image 96 of 391. This is within the pancr eatic body. There is no pancreatic ductal dilatation. Note is made of a rim-enhancing fluid collectio n along the greater curvature of the stomach that measures 7.2 x 3.2 cm. Wall thickening of the stoma ch is noted. This is most evident within the gastric antrum. The splenic vein is attenuated but paten t. No hepatic lesions are present. A left renal cyst is present. There is no hydronephrosis. Note is made of colonic diverticulosis without evidence for acute diverticulitis. A small amount of fluid wit hin the pelvis is noted no acute fracture or suspicious lesion is identified within visualized skelet al structures. IMPRESSION: 1. Infiltration adjacent to the pancreatic body and tail suggestive of acute pancreatitis. 7.2 x 3.2 cm perigastric fluid collection along the greater curvature of the stomach. This is likely related to acute pancreatitis and favors an acute peripancreatic fluid collection. A 1 cm peripancreatic hypode nse within the pancreatic body is also likely related to acute pancreatitis. No evidence for gland ne crosis. Mildly attenuated but patent splenic vein. Associated varices. 2. Wall thickening of the stomach which may be reactive or represent gastritis. 3. Mild dilatation of the common bile duct which may be related to cholecystectomy. This could be cor related with liver function tests. Trace pneumobilia. 4. Colonic diverticulosis without evidence for acute diverticulitis. 5. Small amount of fluid within the pelvis. ACT 112: Negative or not required by law. Electronically signed by: Rafael Dumont M.D. 01/16/2021 4:32 PM
[2021-01-16] MEDS ORDERED: MoRPHine SULFATE 4 MG/ML 1 ML CARP\\VIAL IV STA (16:36)
--- NOTE | 2021-01-16 17:57 | History & Physical Report ---
Date of Service January 16, 2021 Assessment & Plan (1) Pancreatitis: (2) Leukocytosis: This is a 70-year-old female who has significant past medical history of hypothyroidism, IBS, depression, idiopathic neuropathy, piriformis syndrome, history of syncope and collapse, orthostatic hypotension who presents ED secondary to abdominal pain that started at [address] A/P:. Infiltration adjacent to the pancreatic body and tail suggestive of acute pancreatitis. 7.2 x 3.2 cm perigastric fluid collection along the greater curvature of the stomach. This is likely related to acute pancreatitis and favors an acute peripancreatic fluid collection. A 1 cm peripancreatic hypodense within the pancreatic body is also likely related to acute pancreatitis. No evidence for gland necrosis. Mildly attenuated but patent splenic vein. Associated varices. 2. Wall thickening of the stomach which may be reactive or represent gastritis. 3. Mild dilatation of the common bile duct which may be related to cholecystectomy. This could be correlated with liver function tests. Trace pneumobilia. Pt denies significant NSAID USE but does drink 1 glass of wine daily. She is s/p cholecystectomy 09/2020 and ERCP which did reveal incidental pancreatic lesion that was biopsied and revealed rare atypical cells. Follows [facility]. LFTS WNL Lipase 4139 admit to med/surg IV LR @ 200/hr consult GI NPO except sips/chips/meds Scheduled IV APAP, prn IV morphine oral Protonix daily due to possible gastritis repeat cbc, cmp, lipase in a.m. (3) Hypothyroidism: continue levothyroxine (4) Piriformis syndrome: RLE, on prn hydrocodone hold while on IV pain meds (5) Depression: continue lexapro (6) Alcohol use: pt drinks 1 glass of wine daily awss scale, prn lorazepam (7) DVT prophylaxis: SQ Heparin Q12 Dispo: MED/SURG PCP: Ima (CONSUELO vargas), pt moved to [facility] 07/2020 and has not yet established with [facility] provider in [facility], would like to upon discharge FULL CODE Pt was seen and examined in collaboration with Dr. Sainz, please see addendum History of Present Illness Chief Complaint: abdominal pain starting at 2:00a.m. Primary Care Provider: Kalie Vitale This is a 70-year-old female who has significant past medical history of hypothyroidism, IBS, depression, idiopathic neuropathy, piriformis syndrome, history of syncope and collapse, orthostatic hypotension who presents ED secondary to abdominal pain that started at 2 AM. Pain is located on left side of abdomen, constant, nonradiating, made worse with movement and walking, improved with lying still. She did try heat and Tylenol with minimal relief. Pain persisted and she opted to present to ED. Pain came on rather abruptly. When pain first came on she felt nauseated and vomited x1. She denies any bilious emesis or hematemesis. She had a normal BM today. No melena or hematochezia. She denies recent fever, chills, sweats, lightheadedness, di zziness, syncope, chest pain, shortness with, cough, URI symptoms, diarrhea, dysuria, increased urgency or frequency with urination. She denies having similar symptoms in past. Of significance 09/2020 patient did undergo acute cholecystectomy. During that time she also underwent ERCP which showed dilated CBD with sludge and a CBD stent was placed. She also had incidental 8 mm lesion identified in the pancreatic body. [place] like possible neuroendocrine tumor and FNA was performed. Pathology revealed rare atypical cells. Follows [facility]. In ED patient CBC revealed mild leukocytosis of 12.55k, H&H 12.8 and 37.4, platelet 279, LFTs WNL, lipase 4139. CT abdomen pelvis revealed Infiltration adjacent to the pancreatic body and tail suggestive of acute pancreatitis. 7.2 x 3.2 cm perigastric fluid collection along the greater curvature of stomach likely related to the acute pancreatitis. A 1 cm peripancreatic hypodense lesion within the pancreatic body also likely related to acute pancreatitis. Wall thickening of stomach which may represent active or gastritis. She received 2 L of IVF while in ED. Allergies Allergy/AdvReac Type Severity Reaction Status Date / Time bupropion AdvReac Unknown Verified 01/16/21 17:05 diclofenac AdvReac Unknown Verified 01/16/21 17:05 sertraline [From Zoloft] AdvReac Unknown Verified 01/16/21 17:05 Home Medications Medication Instructions Recorded Confirmed Type cyanocobalamin (vitamin B-12) 1,000 mcg PO PM 09/16/20 01/16/21 History [Vitamin B-12] folic acid 1 mg PO PM 09/16/20 01/16/21 History hydrocodone-acetaminophen 1 tab PO Q8 PRN 09/16/20 01/16/21 History acetaminophen 650 mg PO Q6H PRN #30 tab 09/21/20 01/16/21 Rx ascorbic acid (vitamin C) [Vitamin 250 mg PO DAILY 01/16/21 01/16/21 History C] cholecalciferol (vitamin D3) 2,000 mcg PO DAILY 01/16/21 01/16/21 History [Vitamin D3] escitalopram oxalate 10 mg PO DAILY 01/16/21 01/16/21 History hydroxyzine HCl 25 - 50 mg PO Q6 PRN 01/16/21 01/16/21 History levothyroxine 100 mcg PO DAILY 01/16/21 01/16/21 History mirtazapine 30 mg PO HS PRN 01/16/21 01/16/21 History zinc sulfate 220 mg PO DAILY 01/16/21 01/16/21 History Past Med/Surg History Medical History (Updated 01/19/21 @ 11:43 by Sandra Mathis MD) Depression Orthostatic hypotension Piriformis syndrome Severe malnutrition Surgical History (Updated 01/16/21 @ 17:50 by Amber Casarez PA-C) H/O tubal ligation History of appendectomy History of cataract extraction History of ERCP History of tonsillectomy S/P laparoscopic cholecystectomy Family History (Updated 01/16/21 @ 17:51 by Amber Casarez PA-C) Mother , 97 Alzheimer disease Father , 51 Myocardial infarction Social History Smoking Status: Former smoker Tobacco Type: Cigarettes Years Smoked: 31; Hx Alcohol Use: Yes Alcohol type: wine Alcohol Intake Frequency: 4 or More x per/Week Hx Substance Use: No Preferred Language: Wallisian Communication Ability: Effective Shirt Folder Required: No Beliefs That Will Affect Care: None marital status: Current Living Situation: Alone How many Children do You have: 1 Feels Safe at Home: Yes Safety Concerns: Feels Safe At This Time Assistive Devices: None Review of Systems Review of Systems: All systems reviewed & are unremarkable except as noted in HPI & below Physical Exam Physical Exam: Constitutional: WD/WN, vitals as above, NAD, sitting up in bed, pleasant, conversing easily Head: Normocephalic, Atraumatic Eyes: PERRL, conjunctivae normal, anicteric sclerae ENMT: external ear and nose normal, oropharynx normal Neck: trachea midline, no thyromegaly normal visual inspection Respiratory: normal respiratory effort, lungs clear to auscultation, no wheeze, rales, rhonchi. Normal insp/exp effort, no accessory muscle use Cardiovascular: RRR, no murmur, no edema Vessels: no JVD or carotid bruit Chest: normal inspection of chest Abdomen: normal bowel sounds, soft, nontender, no hepatosplenomegaly Musculoskeletal: no cyanosis or clubbing, extremities motor strength 5/5 Skin: no rashes, warm and dry normal turgor Neurologic: PERRL, EOMI, accommodation nl, no face palsy, no dysarthria CN's II-XI intact bilaterally and moves all extremities Psychiatric: A+Ox3, euthymic affect Lymphatic: no cervical or axillary lymphadenopathy : deferred Results & Data Results & Data ([facility]) Vital Signs (Past 12 Hours) Vital Signs Temp Pulse Pulse Resp BP BP Pulse Ox 01/16/21 16:08 80 18 127/67 98 01/16/21 14:33 36.7 C 107 H 16 143/[address] A/P: INDINGS: Lung bases are unremarkable. No pneumatosis, free air or portal venous gas is present. There is trace pneumobilia. Mild biliary ductal dilatation is noted. The common bile duct measures 7 mm status post cholecystectomy. Note is made of mild infiltration adjacent to the pancreatic body and tail. There is a 1 cm round hypodensity within the pancreas on image 96 of 391. This is within the pancreatic body. There is no pancreatic ductal dilatation. Note is made of a ri m-enhancing fluid collection along the greater curvature of the stomach that measures 7.2 x 3.2 cm. Wall thickening of the stomach is noted. This is most evident within the gastric antrum. The splenic vein is attenuated but patent. No hepatic lesions are present. A left renal cyst is present. There is no hydronephrosis. Note is made of colonic diverticulosis without evidence for acute diverticulitis. A small amount of fluid within the pelvis is noted no acute fracture or suspicious lesion is identified within visualized skeletal structures. IMPRESSION: 1. Infiltration adjacent to the pancreatic body and tail suggestive of acute pancreatitis. 7.2 x 3.2 cm perigastric fluid collection along the greater curvature of the stomach. This is likely related to acute pancreatitis and favors an acute peripancreatic fluid collection. A 1 cm peripancreatic hypodense within the pancreatic body is also likely related to acute pancreatitis. No evidence for gland necrosis. Mildly attenuated but patent splenic vein. Associated varices. 2. Wall thickening of the stomach which may be reactive or represent gastritis. 3. Mild dilatation of the common bile duct which may be related to cholecystect romy. This could be correlated with liver function tests. Trace pneumobilia. 4. Colonic diverticulosis without evidence for acute diverticulitis. 5. Small amount of fluid within the pelvis. Medications Administered Discontinued Medications Sodium Chloride (Nss 1000ml) 1,000 mls @ 999 mls/hr IV .Q1H1M ONE Stop: 01/16/21 15:45 Last Infusion: 01/16/21 16:45 Dose: 0 mls/hr Documented by: [id number] Admin: 01/16/21 15:25 Dose: 999 mls/hr Documented by: [id number] Sodium Chloride (Nss 1000ml) 1,000 mls @ 999 mls/hr IV .Q1H1M ONE Stop: 01/16/21 17:36 Last Admin: 01/16/21 16:43 Dose: 999 mls/hr Documented by: [id number] Ioversol (Ioversol 100ml) 94 ml IV ONCE ONE Stop: 01/16/21 15:56 Last Admin: 01/16/21 15:55 Dose: 94 ml Documented by: [id number] Ketorolac Tromethamine (Ketorolac Tromethamine 15 Mg/Ml Vial) 15 mg IV NOW STA Stop: 01/16/21 14:46 Last Admin: 01/16/21 15:25 Dose: 15 mg Documented by: [id number] Morphine Sulfate (Morphine Sulfate 4 Mg/Ml 1 Ml Carp\Vial) 4 mg IV NOW STA Stop: 01/16/21 16:37 Last Admin: 01/16/21 16:43 Dose: 4 mg Documented by: [id number] Ondansetron HCl (Ondansetron Inj 2 Mg/Ml 2 Ml Vial) 4 mg IV NOW STA Stop: 01/16/21 14:46 Last Admin: 01/16/21 16:11 Dose: Not Given Documented by: [id number] Ondansetron HCl (Ondansetron Inj 2 Mg/Ml 2 Ml Vial) 4 mg IV NOW STA Stop: 01/16/21 16:37 Last Admin: 01/16/21 16:43 Dose: 4 mg Documented by: [id number] COVID-19 Results Results COVID-19 Adm Lab Results: RBC 3.23 M/uL (4.2-5.4) L 01/19/21 WBC 6.11 K/uL (4.8-10.8) 01/19/21 Hgb 10.4 g/dL (12.0-16.0) L 01/19/21 Hct 31.9 % (37-47) L 01/19/21 Plt Count 238 K/uL (130-400) 01/19/21 Neutrophils (%) (Auto) 60.5 % 01/18/21 Lymphocytes (%) (Auto) 23.6 % 01/18/21 Monocytes # (Auto) 0.52 K/uL (0.11-0.59) 01/18/21 Eosinophils # (Auto) 0.40 K/uL (0-0.5) 01/18/21 Immature Granulocyte % (Auto) 0.2 % 01/18/21 Neutrophils # (Auto) 3.59 K/uL (1.4-6.5) 01/18/21 Lymphocytes # (Auto) 1.40 K/uL (1.2-3.4) 01/18/21 Monocytes # (Auto) 0.52 K/uL (0.11-0.59) 01/18/21 Eosinophils # (Auto) 0.40 K/uL (0-0.5) 01/18/21 Basophils # (Auto) 0.01 K/uL (0-0.2) 01/18/21 Immature Granulocyte # (Auto) 0.01 K/uL (0.00-0.02) 01/18/21 Na 142 mmol/L (136-145) 01/19/21 K 3.8 mmol/L (3.5-5.1) 01/19/21 Cl 108 mmol/L (98-107) H 01/19/21 CO2 29 mmol/L (21-32) 01/19/21 Anion Gap 5.0 (3-11) 01/19/21 BUN 3 mg/dl (7-18) L 01/19/21 Creatinine 0.47 mg/dl (0.6-1.2) L 01/19/21 BUN/Creatinine Ratio 6.8 (10-20) L 01/19/21 Glucose Level 79 mg/dl (70-99) 01/19/21 Ca 8.9 mg/dl (8.5-10.1) 01/19/21 Total Bilirubin 0.4 mg/dl (0.2-1) 01/19/21 Direct Bilirubin < 0.1 mg/dl (0-0.2) 01/16/21 AST/SGOT 10 U/L (15-37) L 01/19/21 ALT/SGPT 16 U/L (12-78) 01/19/21 Alkaline Phosphatase 75 U/L (45-117) 01/19/21 Total Protein 5.0 gm/dl (6.4-8.2) L 01/19/21 Albumin 2.5 gm/dl (3.4-5.0) L 01/19/21 Globulin 2.5 gm/dl (2.5-4.0) 01/19/21 Albumin/Globulin Ratio 1.0 (0.9-2) 01/19/21 SARS-CoV-2, RNA, NAAT NEGATIVE (NEGATIVE) 01/16/21 Code Status & VTE Plan Code Status Full Code VTE Prophylaxis Plan VTE Prophylaxis will be ordered: Yes Supervising Physician Co-Signing Physician Notes Attending Addendum: delayed entry date of service noted above care coordinated with CONSUELO Casarez please refer to her notes for full details, I agree with her notes patient seen and examined, records reviewed by myself as well on exam, patient seen resting in bed, comfortable states abdominal pain is now well controlled no nausea, dyspnea, chest pain, chills no other symptoms VS noted and reviewed oriented x 3 , not in distress, speaks in sentences with no effort nor accessory muscle use normal rate, regular rhythm, no murmurs clear breath sounds bilaterally non distended, soft, minimal epigastric tenderness no bipedal edema, erythema, warmth no neuro deficits WBC 12.5 Hg 12.8 Crea 0.62 Lipase 4,100 CT abd: 1. Infiltration adjacent to the pancreatic body and tail suggestive of acute pancreatitis. 7.2 x 3.2 cm perigastric fluid collection along the greater curvature of the stomach. This is likely related to acute pancreatitis and favors an acute peripancreatic fluid collection. A 1 cm peripancreatic hypodense within the pancreatic body is also likely related to acute pancreatitis. No evidence for gland necrosis. Mildly attenuated but patent splenic vein. Associated varices. 2. Wall thickening of the stomach which may be reactive or represent gastritis. 3. Mild dilatation of the common bile duct which may be related to cholecystectomy. This could be correlated with liver function tests. Trace pneumobilia. 4. Colonic diverticulosis without evidence for acute diverticulitis. 5. Small amount of fluid within the pelvis. ASSESSMENT AND PLAN Acute Pancreatitis Known Pancreatic Lesion -- vigorous IV fluids NPO PRN analgesics GI consult other diagnoses and plan of care as per CONSUELO Esqueda's notes plan of care discussed with patient in detail and at length all questions answered she is understanding, agreeable, comfortable with the plan of care Dameon Sainz MD (1) Pancreatitis Acute pancreatitis complication: unspecified Chronicity: acute Pancreatitis type: unspecified pancreatitis type Qualified Code(s): K85.90 - Acute pancreatitis without necrosis or infection, unspecified
[2021-01-16] MEDS ORDERED: HYDROCODONE/ACETAMOPHEN 5/325MG TAB PO PRN (18:49)
[2021-01-16] MEDS ORDERED: LORazepam 1 MG TAB PO PRN (18:49)
[2021-01-16] MEDS ORDERED: hydrOXYzine HCl 25 MG TAB PO PRN (18:49)
[2021-01-16] MEDS ORDERED: ACETAMINOPHEN 325 MG TAB PO PRN (18:49)
[2021-01-16] MEDS ORDERED: MoRPHine SULFATE 2 MG/ML CARP IV PRN (18:49)
[2021-01-16] MEDS ORDERED: ONDANSETRON INJ 2 MG/ML 2 ML VIAL IV PRN (18:49)
[2021-01-16] MEDS: LACTATED RINGER'S 1,000 ML IV SCH (19:33)
[2021-01-16] MEDS: ACETAMINOPHEN 1,000 MG/100 ML VIAL IV SCH (19:33)
[2021-01-16] MEDS: PANTOprazole 40 MG TAB PO SCH (20:23)
[2021-01-16] MEDS: HEPARIN SOD 5,000 UNIT/0.5 ML VIAL SQ SCH (20:23)
[2021-01-16] MEDS: MIRTAZAPINE TAB 15 MG TAB PO PRN (21:56)
[2021-01-17] MEDS: LACTATED RINGER'S 1,000 ML IV SCH ×5 (00:35→23:50)
[2021-01-17] MEDS: ACETAMINOPHEN 1,000 MG/100 ML VIAL IV SCH ×3 (04:29→20:01)
[2021-01-17] MEDS: LEVOTHYROXINE SODIUM 100 MCG TABLET PO SCH (05:36)
[2021-01-17 06:51] LABS: Basophils # (auto) 0.01 K/uL (0-0.2); Basophils % (auto) 0.1 %; Eosinophils # (auto) 0.55 K/uL (0-0.5); Eosinophils % (auto) 8.2 %; Hematocrit (blood only) 33.7 % (37-47); Immature Granulocytes # (auto) 0.02 K/uL (0.00-0.02); Immature Granulocytes % (auto) 0.3 %; Lymphocytes # (auto) 1.98 K/uL (1.2-3.4); Lymphocytes % (auto) 29.5 %; Mean Corpuscular Hemoglobin 32.6 pg (25-34); Mean Corpuscular Hgb Conc 32.6 g/dL (32-36); Mean Platelet Volume 9.1 fL (7.4-10.4); Monocytes # (auto) 0.75 K/uL (0.11-0.59); Monocytes % (auto) 11.2 %; Neutrophils # (auto) 3.41 K/uL (1.4-6.5); Neutrophils % (auto) 50.7 %; Platelet Count 215 K/uL (130-400); RDW Coefficient of Variation 13.6 % (11.5-14.5); RDW Standard Deviation 49.1 fL (36.4-46.3); Red Blood Count 3.37 M/uL (4.2-5.4); White Blood Count 6.72 K/uL (4.8-10.8)
[2021-01-17] MEDS: ESCITALOPRAM OXALATE 10 MG TAB PO SCH (07:19)
[2021-01-17] MEDS: HEPARIN SOD 5,000 UNIT/0.5 ML VIAL SQ SCH ×2 (07:19→20:14)
[2021-01-17] MEDS: PANTOprazole 40 MG TAB PO SCH (07:19)
[2021-01-17 07:30] LABS: Albumin Level 2.6 gm/dl (3.4-5.0); BUN Creatinine Ratio 13.5 (10-20); Calcium 8.5 mg/dl (8.5-10.1); Creatinine Clr Calc Pharmacy 76.8 ml/min; Est GFR (Non-African American) 95.8; Potassium 4.4 mmol/L (3.5-5.1)
[2021-01-17 07:40] LABS: Albumin Globulin Ratio 0.9 (0.9-2); Bilirubin,Total 0.6 mg/dl (0.2-1); Globulin 2.8 gm/dl (2.5-4.0); Total Protein 5.4 gm/dl (6.4-8.2)
--- NOTE | 2021-01-17 11:04 | Gastrointestinal Consultation ---
Date of Consultation January 17, 2021 Assessment & Plan (1) Pancreatitis: 70 year old female admitted w/ abrupt onset upper abd pain w/ nausea/vomiting - elevated lipase, CTAP w/ pancreatic body/tail pancreatitis and 7.2 x 3.2 cm perigastric fluid collection along the greater curvature of the stomach suggestive of acute peripancreatic fluid collection. Notes is the 1 cm peripancreatic hypodense lesion followed by Dr. Ramires as OP Clear liquids Requested to push CT imaging to [facility] advance to low fat, this evening if tolerating clear liquids analgesia PRN antiemetics PRN remain ETOH free Thank you for allowing us to participate in the care of this patient. Please call with any acute changes, questions or concerns. Please see addendum below with additional recommendation from my supervising physician. Supervising Physician Co-Signing Physician Notes I performed a history and physical examination of the patient today, including specifically on physical exam - soft abdomen. I have discussed the patient's management with the advanced practitioner. Please refer to the nurse practitioner's note for the documented findings and plan of care. Second episode of pancreatitis, first time had biliary sludge s/p Lap geno and ERCO with sphincterotomy. LFTs normal. 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 Second FNA atypical cells. Seen by surgery who planned repeat CT scan which is planned for next week. Now has a 7 cm rim enhancing peripancreatic fluid collection. No signs of Sepsis. WBC normal. Her pancreatitis could be related to the underlying wilcox lesion. Recommend: Advanced diet as tolerated as her pain resolved. I will discuss with the surgeon who has followed the patient previously as OP. I will repeat her CT scan in 2 weeks to check on the fluid collection as this seems to be symptomatic and may need to be drained by EUS. History of Present Illness Reason for Consultation: panc Requesting Physician: Alistair Attending Physician: Dameon Sainz MD History of Present Illness 70 year old female w/ history of hypothyroidism, IBS, depression, idiopathic neuropathy, piriformis syndrome, orthostatic hypotension admitted through the ED w/ severe epigastric pain, midline/left upper abdomen. When pain first came on she felt nauseated and vomited x1. She denies any bilious emesis or hematemesis. She had a normal BM today. S/P CCY in 09/2020 S/P ERCP which showed dilated CBD with sludge and a CBD stent was placed. She also had incidental 8 mm lesion identified in the pancreatic body. [place] like possible neuroendocrine tumor and FNA was performed. Pathology revealed rare atypical cells. Was to have OP CT next week. Feeling well this AM - hungry. Allergies Allergy/AdvReac Type Severity Reaction Status Date / Time bupropion AdvReac Unknown Verified 01/16/21 17:05 diclofenac AdvReac Unknown Verified 01/16/21 17:05 sertraline [From Zoloft] AdvReac Unknown Verified 01/16/21 17:05 Home Medications Medication Instructions Recorded Confirmed Type cyanocobalamin (vitamin B-12) 1,000 mcg PO PM 09/16/20 01/16/21 History [Vitamin B-12] folic acid 1 mg PO PM 09/16/20 01/16/21 History hydrocodone-acetaminophen 1 tab PO Q8 PRN 09/16/20 01/16/21 History acetaminophen 650 mg PO Q6H PRN #30 tab 09/21/20 01/16/21 Rx ascorbic acid (vitamin C) [Vitamin 250 mg PO DAILY 01/16/21 01/16/21 History C] cholecalciferol (vitamin D3) 2,000 mcg PO DAILY 01/16/21 01/16/21 History [Vitamin D3] escitalopram oxalate 10 mg PO DAILY 01/16/21 01/16/21 History hydroxyzine HCl 25 - 50 mg PO Q6 PRN 01/16/21 01/16/21 History levothyroxine 100 mcg PO DAILY 01/16/21 01/16/21 History mirtazapine 30 mg PO HS PRN 01/16/21 01/16/21 History zinc sulfate 220 mg PO DAILY 01/16/21 01/16/21 History Patient History Medical History (Updated 01/16/21 @ 17:53 by Amber Casarez PA-C) Depression Orthostatic hypotension Piriformis syndrome Severe malnutrition Surgical History (Updated 01/16/21 @ 17:50 by Amber Casarez PA-C) H/O tubal ligation History of appendectomy History of cataract extraction History of ERCP History of tonsillectomy S/P laparoscopic cholecystectomy Family History (Updated 01/16/21 @ 17:51 by NILTON ArangoC) Mother , 97 Alzheimer disease Father , 51 Myocardial infarction Social History Smoking Status: Former smoker Tobacco Type: Cigarettes Years Smoked: 31; Hx Alcohol Use: Yes Alcohol type: wine Alcohol Intake Frequency: 4 or More x per/Week Hx Substance Use: No Preferred Language: Indonesian Communication Ability: Effective Special Education Bus Driver Required: No Beliefs That Will Affect Care: None marital status: Current Living Situation: Alone How many Children do You have: 1 Feels Safe at Home: Yes Safety Concerns: Feels Safe At This Time Assistive Devices: None Review of Systems Constitutional: no fever, no chills and no fatigue Respiratory: no cough, no dyspnea and no wheezing Cardiovascular: no chest pain and no dyspnea Gastrointestinal: no abdominal pain, no nausea, no coffee ground emesis, no hematemesis, no diarrhea/loose stools, no blood in stools and no melena Physical Exam Constitutional: well developed and well nourished; no acute distress and not ill appearing Neck: + trachea not midline Respiratory: normal respiratory effort, lungs clear to auscultation Cardiovascular: RRR, no murmur, no edema Gastrointestinal (Abdomen): normal bowel sounds, soft, nontender, no hepatosplenomegaly Skin: no rashes, warm and dry Results & Data ([facility] [place]) Vital Signs (Past 12 Hours) Vital Signs Temp Pulse Resp BP Pulse Ox 01/17/21 07:35 36.4 C L 67 19 129/68 93 01/17/21 04:08 36.6 C 78 16 141/79 H 96 Laboratory Results 01/17/21 01/17/21 01/16/21 Range/Units 06:20 06:20 17:05 WBC 6.72 (4.8-10.8) K/uL RBC 3.37 L (4.2-5.4) M/uL Hgb 11.0 L (12.0-16.0) g/dL POC Hgb (12.0-16.0) g/dl Hct 33.7 L (37-47) % POC Hct (37-47) % MCV 100.0 (80-100) fL MCH 32.6 (25-34) pg MCHC 32.6 (32-36) g/dL RDW Std Deviation 49.1 H (36.4-46.3) fL RDW Coeff of Alfredo 13.6 (11.5-14.5) % Plt Count 215 (130-400) K/uL MPV 9.1 (7.4-10.4) fL Immature Gran % (Auto) 0.3 % Neut % (Auto) 50.7 % Lymph % (Auto) 29.5 % [place] % (Auto) 11.2 % Eos % (Auto) 8.2 % Baso % (Auto) 0.1 % Neut # (Auto) 3.41 (1.4-6.5) K/uL Lymph # (Auto) 1.98 (1.2-3.4) K/uL [place] # (Auto) 0.75 H (0.11-0.59) K/uL Eos # (Auto) 0.55 H (0-0.5) K/uL Baso # (Auto) 0.01 (0-0.2) K/uL Immature Gran # (Auto) 0.02 (0.00-0.02) K/uL POC Sodium (135-144) mmol/L Sodium 143 (136-145) mmol/L POC Potassium (3.3-5.0) mmol/L Potassium 4.4 (3.5-5.1) mmol/L POC Chloride (101-112) mmol/L Chloride 108 H (98-107) mmol/L Carbon Dioxide 29 (21-32) mmol/L POC Total CO2 (24-31) mmol/L Anion Gap 6.0 (3-11) POC Anion Gap (16-25) mmol/L POC BUN (7-18) mg/dl BUN 8 (7-18) mg/dl Creatinine 0.56 L (0.6-1.2) mg/dl POC Creatinine (0.6-1.3) mg/dl Est Cr Clr Drug Dosing 76.8 ml/min Est GFR ( Amer) 111.0 Est GFR (Non-Af Amer) 95.8 BUN/Creatinine Ratio 13.5 (10-20) Glucose 78 (70-99) mg/dl POC Glucose (other) (70-99) mg/dl Calcium 8.5 (8.5-10.1) mg/dl POC Ioniz Calcium Clemencia (1.12-1.32) mmol/l Total Bilirubin 0.6 (0.2-1) mg/dl Direct Bilirubin (0-0.2) mg/dl AST 13 L (15-37) U/L ALT 15 (12-78) U/L Alkaline Phosphatase 75 (45-117) U/L Total Protein 5.4 L D (6.4-8.2) gm/dl Albumin 2.6 L (3.4-5.0) gm/dl Globulin 2.8 (2.5-4.0) gm/dl Albumin/Globulin Ratio 0.9 (0.9-2) Lipase 1214 H (73-393) U/L Urine Color Urine Appearance (Clear) Urine pH (4.5-7.5) Ur Specific [place] (1.000-1.030) Urine Protein (Negative) Urine Glucose (UA) (Negative) Urine Ketones (Negative) Urine Blood (Negative) Urine Nitrite (Negative) Urine Bilirubin (Negative) Urine Urobilinogen (Negative) Ur Leukocyte Esterase (Negative) Urine WBC (Auto) (0-5) /hpf Urine RBC (Auto) (0-4) /hpf U Hyaline Cast (Auto) (0-5) /lpf U Epithel Cells (Auto) (0-5) /lpf Urine Bacteria (Auto) (Negative) COVID-19 Eval Order SARS-CoV-2, RNA, NAAT NEGATIVE (NEGATIVE) 01/16/21 01/16/21 01/16/21 Range/Units 17:05 16:09 15:21 WBC (4.8-10.8) K/uL RBC (4.2-5.4) M/uL Hgb (12.0-16.0) g/dL POC Hgb 13.3 (12.0-16.0) g/dl Hct (37-47) % POC Hct 39 (37-47) % MCV (80-100) fL MCH (25-34) pg MCHC (32-36) g/dL RDW Std Deviation (36.4-46.3) fL RDW Coeff of Alfredo (11.5-14.5) % Plt Count (130-400) K/uL MPV (7.4-10.4) fL Immature Gran % (Auto) % Neut % (Auto) % Lymph % (Auto) % [place] % (Auto) % Eos % (Auto) % Baso % (Auto) % Neut # (Auto) (1.4-6.5) K/uL Lymph # (Auto) (1.2-3.4) K/uL [place] # (Auto) (0.11-0.59) K/uL Eos # (Auto) (0-0.5) K/uL Baso # (Auto) (0-0.2) K/uL Immature Gran # (Auto) (0.00-0.02) K/uL POC Sodium 135 (135-144) mmol/L Sodium (136-145) mmol/L POC Potassium 4.0 (3.3-5.0) mmol/L Potassium (3.5-5.1) mmol/L POC Chloride 102 (101-112) mmol/L Chloride (98-107) mmol/L Carbon Dioxide (21-32) mmol/L POC Total CO2 22 L (24-31) mmol/L Anion Gap (3-11) POC Anion Gap 16.0 (16-25) mmol/L POC BUN 6 L (7-18) mg/dl BUN (7-18) mg/dl Creatinine (0.6-1.2) mg/dl POC Creatinine 0.5 L (0.6-1.3) mg/dl Est Cr Clr Drug Dosing ml/min Est GFR ( Amer) Est GFR (Non-Af Amer) BUN/Creatinine Ratio (10-20) Glucose (70-99) mg/dl POC Glucose (other) 86 (70-99) mg/dl Calcium (8.5-10.1) mg/dl POC Ioniz Calcium Clemencia 1.14 (1.12-1.32) mmol/l Total Bilirubin (0.2-1) mg/dl Direct Bilirubin (0-0.2) mg/dl AST (15-37) U/L ALT (12-78) U/L Alkaline Phosphatase (45-117) U/L Total Protein (6.4-8.2) gm/dl Albumin (3.4-5.0) gm/dl Globulin (2.5-4.0) gm/dl Albumin/Globulin Ratio (0.9-2) Lipase (73-393) U/L Urine Color Yellow Urine Appearance Cloudy A (Clear) Urine pH 5.0 (4.5-7.5) Ur Specific [place] 1.018 (1.000-1.030) Urine Protein Negative (Negative) Urine Glucose (UA) Negative (Negative) Urine Ketones Trace H (Negative) Urine Blood Negative (Negative) Urine Nitrite Negative (Negative) Urine Bilirubin Negative (Negative) Urine Urobilinogen Negative (Negative) Ur Leukocyte Esterase Trace H (Negative) Urine WBC (Auto) 1-5 (0-5) /hpf Urine RBC (Auto) 0-4 (0-4) /hpf U Hyaline Cast (Auto) 1-5 (0-5) /lpf U Epithel Cells (Auto) 10-20 H (0-5) /lpf Urine Bacteria (Auto) Negative (Negative) COVID-19 Eval Order Covid19 IDNow [facility] SARS-CoV-2, RNA, NAAT (NEGATIVE) 01/16/21 01/16/21 Range/Units 15:13 15:13 WBC 12.55 H (4.8-10.8) K/uL RBC 3.84 L (4.2-5.4) M/uL Hgb 12.8 (12.0-16.0) g/dL POC Hgb (12.0-16.0) g/dl Hct 37.4 (37-47) % POC Hct (37-47) % MCV 97.4 (80-100) fL MCH 33.3 (25-34) pg MCHC 34.2 (32-36) g/dL RDW Std Deviation 48.2 H (36.4-46.3) fL RDW Coeff of Alfredo 13.7 (11.5-14.5) % Plt Count 279 (130-400) K/uL MPV 9.2 (7.4-10.4) fL Immature Gran % (Auto) 0.4 % Neut % (Auto) 67.5 % Lymph % (Auto) 18.6 % [place] % (Auto) 10.6 % Eos % (Auto) 2.8 % Baso % (Auto) 0.1 % Neut # (Auto) 8.48 H (1.4-6.5) K/uL Lymph # (Auto) 2.33 (1.2-3.4) K/uL [place] # (Auto) 1.33 H (0.11-0.59) K/uL Eos # (Auto) 0.35 (0-0.5) K/uL Baso # (Auto) 0.01 (0-0.2) K/uL Immature Gran # (Auto) 0.05 H (0.00-0.02) K/uL POC Sodium (135-144) mmol/L Sodium 139 (136-145) mmol/L POC Potassium (3.3-5.0) mmol/L Potassium 4.0 (3.5-5.1) mmol/L POC Chloride (101-112) mmol/L Chloride 103 (98-107) mmol/L Carbon Dioxide 21 (21-32) mmol/L POC Total CO2 (24-31) mmol/L Anion Gap 15.0 H (3-11) POC Anion Gap (16-25) mmol/L POC BUN (7-18) mg/dl BUN 6 L (7-18) mg/dl Creatinine 0.62 (0.6-1.2) mg/dl POC Creatinine (0.6-1.3) mg/dl Est Cr Clr Drug Dosing 69.4 ml/min Est GFR ( Amer) 107.4 Est GFR (Non-Af Amer) 92.7 BUN/Creatinine Ratio 10.3 (10-20) Glucose 84 (70-99) mg/dl POC Glucose (other) (70-99) mg/dl Calcium 9.1 (8.5-10.1) mg/dl POC Ioniz Calcium Clemencia (1.12-1.32) mmol/l Total Bilirubin 0.7 (0.2-1) mg/dl Direct Bilirubin < 0.1 (0-0.2) mg/dl AST 18 (15-37) U/L ALT 20 (12-78) U/L Alkaline Phosphatase 97 (45-117) U/L Total Protein 7.1 (6.4-8.2) gm/dl Albumin 3.5 (3.4-5.0) gm/dl Globulin (2.5-4.0) gm/dl Albumin/Globulin Ratio (0.9-2) Lipase 4139 H (73-393) U/L Urine Color Urine Appearance (Clear) Urine pH (4.5-7.5) Ur Specific [place] (1.000-1.030) Urine Protein (Negative) Urine Glucose (UA) (Negative) Urine Ketones (Negative) Urine Blood (Negative) Urine Nitrite (Negative) Urine Bilirubin (Negative) Urine Urobilinogen (Negative) Ur Leukocyte Esterase (Negative) Urine WBC (Auto) (0-5) /hpf Urine RBC (Auto) (0-4) /hpf U Hyaline Cast (Auto) (0-5) /lpf U Epithel Cells (Auto) (0-5) /lpf Urine Bacteria (Auto) (Negative) COVID-19 Eval Order SARS-CoV-2, RNA, NAAT (NEGATIVE) (1) Pancreatitis Acute pancreatitis complication: unspecified Chronicity: acute Pancreatitis type: unspecified pancreatitis type Qualified Code(s): K85.90 - Acute pancreatitis without necrosis or infection, unspecified
[2021-01-17] MEDS: HYDROCODONE/ACETAMOPHEN 5/325MG TAB PO PRN ×2 (16:26→23:48)
--- NOTE | 2021-01-17 19:00 | Hospitalist Progress Note ---
Date of Service delayed entry date of service noted below January 17, 2021 Assessment & Plan (1) Pancreatitis: abdominal pain improved no tenderness on exam lipase improving continue clears, IV fluids plan on soft diet tomorrow in AM if pain still improving (2) Leukocytosis: In the setting of known pancreatic lesion Possible malignant pancreatic neoplasm Resolved (3) Hypothyroidism: continue levothyroxine (4) Piriformis syndrome: RLE, on prn hydrocodone hold while on IV pain meds (5) Depression: continue lexapro (6) Alcohol use: pt drinks 1 glass of wine daily awss scale, prn lorazepam No signs of overt alcohol withdrawal symptoms (7) DVT prophylaxis: SQ Heparin Q12 Disposition pending plan of care discussed with patient in detail all questions answered she is understanding, agreeable, comfortable with the plan of care (8) Severe protein-calorie malnutrition: BMI is 17.5 kg/m body square Nutrition assessment and recommendations were given Admission and Anticipated Discharge Date Admission Date: January 16, 2021 Subjective ff up for acute pancreatitis seen resting in bed, comfortable, watching TV in good spirits states abdominal pain continues to improve- minimal to none tolerating clears well no headache, dizziness, chest pain, dyspnea, palpitations, nausea/vomiting no BM yet no other symptoms Review of Systems Review of Systems: All systems reviewed & are unremarkable except as noted in Subjective Physical Exam Physical Exam: General- oriented x 3, not in distress, speaks in sentences with no effort or accessory muscle use Eyes- anicteric Neck- no JVD Lungs- clear breath sounds bilaterally, no rales/wheezes Heart- normal rate, regular rhythm; no murmurs Abdomen- normal bowel sounds, nondistended, soft, nontender Extremities- no pretibial edema, no calf tenderness Neuro- alert, oriented x 3; no gross focal neurologic deficits Skin- warm & dry Results & Data Results & Data ([facility]) Vital Signs (Past 12 Hours) Vital Signs Temp Pulse Resp BP BP Pulse Ox 01/17/21 15:22 36.7 C 78 19 123/75 95 01/17/21 11:34 36.4 C L 75 18 124/78 95 01/17/21 07:35 36.4 C L 67 19 129/68 93 all noted and reviewed including below (1) Pancreatitis Acute pancreatitis complication: unspecified Chronicity: acute Pancreatitis type: unspecified pancreatitis type Qualified Code(s): K85.90 - Acute pancreatitis without necrosis or infection, unspecified
[2021-01-17] MEDS: MIRTAZAPINE TAB 15 MG TAB PO PRN (20:14)
[2021-01-18] MEDS ORDERED: OPTIRAY 320 100ml IV ONE (03:36)
--- NOTE | 2021-01-18 03:54 | Communication Note ---
Date of Service: January 18, 2021 Patient woke up with abdominal pain worse than admission as per RN. CT abdomen pelvis initial read: Acute pancreatitis, slightly increased fat stranding. Fluid collection greater curvature of stomach is decreased in size. AP Worsening pancreatitis Resume bowel rest Increase LRS rate Will relay to AM provider.
[2021-01-18 05:09] LABS: Basophils # (auto) 0.01 K/uL (0-0.2); Basophils % (auto) 0.2 %; Eosinophils % (auto) 6.7 %; Hematocrit (blood only) 31.8 % (37-47); Hemoglobin 10.4 g/dL (12.0-16.0); Immature Granulocytes # (auto) 0.01 K/uL (0.00-0.02); Immature Granulocytes % (auto) 0.2 %; Lymphocytes % (auto) 23.6 %; Mean Corpuscular Hemoglobin 32.4 pg (25-34); Mean Corpuscular Hgb Conc 32.7 g/dL (32-36); Mean Corpuscular Volume 99.1 fL (80-100); Mean Platelet Volume 9.2 fL (7.4-10.4); Monocytes # (auto) 0.52 K/uL (0.11-0.59); Monocytes % (auto) 8.8 %; Neutrophils # (auto) 3.59 K/uL (1.4-6.5); Neutrophils % (auto) 60.5 %; Platelet Count 243 K/uL (130-400); RDW Coefficient of Variation 13.5 % (11.5-14.5); RDW Standard Deviation 48.4 fL (36.4-46.3); Red Blood Count 3.21 M/uL (4.2-5.4); White Blood Count 5.93 K/uL (4.8-10.8)
[2021-01-18] MEDS: ACETAMINOPHEN 1,000 MG/100 ML VIAL IV SCH ×3 (05:14→20:19)
[2021-01-18 05:37] LABS: Albumin Level 2.5 gm/dl (3.4-5.0); BUN Creatinine Ratio 10.9 (10-20); Calcium 8.1 mg/dl (8.5-10.1); Creatinine Clr Calc Pharmacy 84.3 ml/min; Est GFR (African American) 114.5; Est GFR (Non-African American) 98.8; Magnesium 1.8 mg/dl (1.8-2.4); Potassium 3.9 mmol/L (3.5-5.1)
[2021-01-18 05:39] LABS: Albumin Globulin Ratio 0.9 (0.9-2); Bilirubin,Total 0.3 mg/dl (0.2-1); Globulin 2.7 gm/dl (2.5-4.0); Total Protein 5.2 gm/dl (6.4-8.2)
[2021-01-18] MEDS: LACTATED RINGER'S 1,000 ML IV SCH ×4 (06:04→22:34)
[2021-01-18] MEDS: LEVOTHYROXINE SODIUM 100 MCG TABLET PO SCH (06:35)
--- NOTE | 2021-01-18 07:33 | CT Scan Report ---
CT OF THE ABDOMEN AND PELVIS WITH CONTRAST CLINICAL HISTORY: Worsening abdominal pain. COMPARISON STUDY: CT of the abdomen and pelvis January 08, 2021. TECHNIQUE: Following IV administration of 93 mL of Optiray-320, axial images of the abdomen and pelvi s were obtained from the lung bases to the proximal femurs. Images were reviewed in the axial, sagitt al, and coronal planes. IV contrast was administered without complication. Automated exposure contro l was utilized for the study. A dose lowering technique was utilized adhering to the principles of A BETHANY. CT DOSE: 253.27 mGy.cm FINDINGS: Imaged portions of the lower chest demonstrate small bilateral pleural effusions which have developed since prior exam. Associated airspace opacities reflect atelectasis. No pneumatosis, free air or portal venous gas is present. Moderate biliary ductal dilatation has significantly increased s norma CT of January 08, 2021. Pneumobilia is noted. The common bile duct measures 1.4 cm in caliber. No hepatic lesions are present. The spleen and adrenal glands are unremarkable as is the right kidney . There is a left renal cyst. There is no hydronephrosis. There is no pancreatic ductal dilatation. A 1 cm cystic lesion within the pancreatic body on image 102 of 416 is unchanged. Infiltration and flu id adjacent to the pancreatic body and tail is again noted. Fluid within the abdomen and pelvis has i ncreased since prior examination. This is most pronounced within the right paracolic gutter and the p damien. The previously described rim-enhancing perigastric fluid collection has significantly decrease d in size since prior CT. It now measures 6.9 x 1.4 cm. It previously measured 7.2 x 3.2 cm. Gastric wall thickening is again noted. There may be an additional 1.8 cm fluid collection along the gastric cardia. There is no evidence for a bowel obstruction. Colonic diverticulosis is noted without evidenc e for acute diverticulitis. No acute fracture or suspicious lesion is identified within the visualize d skeletal structures. The splenic vein is patent. The main, left and right portal veins are patent. IMPRESSION: 1. Interval decrease in size of the perigastric fluid collection suggestive of an acute peripancreati c fluid collection. Interval decrease in size of this collection could be due to rupture or spontaneo us decompression into the stomach. A few additional smaller perigastric fluid collections with gastri c fold thickening. 2. Findings consistent with acute pancreatitis. Increase in fluid within the abdomen and pelvis, as d escribed above. No change in the indeterminate 1 cm cystic pancreatic body lesion. 3. Interval increase in biliary ductal dilatation status post cholecystectomy. Pneumobilia. Findings could be correlated with liver function tests. This finding will be called/faxed to the ordering prov ider at time of dictation. 4. Small bilateral pleural effusions. 5. No bowel obstruction. Colonic diverticulosis without evidence for acute diverticulitis. ACT 112: Negative or not required by law. Electronically signed by: Rafael Dumont M.D. 01/18/2021 7:32 AM
[2021-01-18] MEDS: PANTOprazole 40 MG TAB PO SCH (07:43)
[2021-01-18] MEDS: HEPARIN SOD 5,000 UNIT/0.5 ML VIAL SQ SCH ×2 (07:43→21:03)
[2021-01-18] MEDS: ESCITALOPRAM OXALATE 10 MG TAB PO SCH (07:43)
--- NOTE | 2021-01-18 08:57 | Gastroenterology Progress Note ---
Date of Service January 18, 2021 Assessment & Plan (1) Pancreatitis: 70 year old female admitted w/ abrupt onset upper abd pain w/ nausea/vomiting - elevated lipase, CTAP w/ pancreatic body/tail pancreatitis and 7.2 x 3.2 cm perigastric fluid collection along the greater curvature of the stomach suggestive of acute peripancreatic fluid collection. 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 Second FNA atypical cells. Seen by surgery who planned repeat CT scan which is planned for next week. Now has a 7 cm rim enhancing peripancreatic fluid collection. No signs of Sepsis. WBC normal. Her pancreatitis could be related to the underlying wilcox lesion. NPO until re-evaluated afternoon rounds Requested to push CT imaging to [facility] analgesia PRN antiemetics PRN remain ETOH free Thank you for allowing us to participate in the care of this patient. Please call with any acute changes, questions or concerns. Please see addendum below with additional recommendation from my supervising physician. Admission and Anticipated Discharge Date Admission Date: January 16, 2021 Supervising Physician Co-Signing Physician Notes I performed a history and physical examination of the patient today, including specifically on physical exam - soft abdomen. I have discussed the patient's management with the advanced practitioner. Please refer to the nurse practitioner's note for the documented findings and plan of care. Had recurrence of her pain yesterday hence repeat CT scan done and showed decrease size in the peripancreatic collection. She likely fistulized it into the stomach. Continue IV Hydration, clear liquids and pain control. Subjective Pt initially tolerated advancing diet last evening without any concerns. However, woke up arond 0300 with worsening abdominal pain. Repeat CT at that time w/ decrease in fluid collection, increase in ductal dilation. LFTs normal. This AM slightly improved again Less pain No nausea/vomiting Was made NPO CTAP 2020: Interval decrease in size of the perigastric fluid collection suggestive of an acute peripancreatic fluid collection. Interval decrease in size of this collection could be due to rupture or spontaneous decompression into the stomach. A few additional smaller perigastric fluid collections with gastric fold thickening. Findings consistent with acute pancreatitis. Increase in fluid within the abdomen and pelvis, as described above. No change in the indeterminate 1 cm cystic pancreatic body lesion. Interval increase in biliary ductal dilatation status post cholecystectomy. Pneumobilia. Findings could be correlated with liver function tests. This finding will be called/faxed to the ordering provider at time of dictation. Review of Systems Constitutional: no fever, no chills and no fatigue Respiratory: no cough and no dyspnea Cardiovascular: no chest pain Gastrointestinal: + abdominal pain; no nausea, no vomiting, no diarrhea/loose stools and no blood in stools Physical Exam Constitutional: well developed and well nourished; no acute distress and not ill appearing Neck: trachea midline Respiratory: normal respiratory effort, lungs clear to auscultation Cardiovascular: RRR, no murmur, no edema Gastrointestinal (Abdomen): normal bowel sounds, soft, nontender, no hepatosplenomegaly Skin: no rashes, warm and dry Results & Data ([facility]) Vital Signs (Past 12 Hours) Vital Signs Temp Pulse Resp BP BP Pulse Ox 01/18/21 07:48 36.5 C 74 15 132/75 93 01/17/21 22:13 36.6 C 79 16 126/70 93 Laboratory Results 01/18/21 01/18/21 Range/Units 04:32 04:32 WBC 5.93 (4.8-10.8) K/uL RBC 3.21 L (4.2-5.4) M/uL Hgb 10.4 L (12.0-16.0) g/dL Hct 31.8 L (37-47) % MCV 99.1 (80-100) fL MCH 32.4 (25-34) pg MCHC 32.7 (32-36) g/dL RDW Std Deviation 48.4 H (36.4-46.3) fL RDW Coeff of Alfredo 13.5 (11.5-14.5) % Plt Count 243 (130-400) K/uL MPV 9.2 (7.4-10.4) fL Immature Gran % (Auto) 0.2 % Neut % (Auto) 60.5 % Lymph % (Auto) 23.6 % [place] % (Auto) 8.8 % Eos % (Auto) 6.7 % Baso % (Auto) 0.2 % Neut # (Auto) 3.59 (1.4-6.5) K/uL Lymph # (Auto) 1.40 (1.2-3.4) K/uL [place] # (Auto) 0.52 (0.11-0.59) K/uL Eos # (Auto) 0.40 (0-0.5) K/uL Baso # (Auto) 0.01 (0-0.2) K/uL Immature Gran # (Auto) 0.01 (0.00-0.02) K/uL Sodium 140 (136-145) mmol/L Potassium 3.9 (3.5-5.1) mmol/L Chloride 108 H (98-107) mmol/L Carbon Dioxide 28 (21-32) mmol/L Anion Gap 4.0 (3-11) BUN 6 L (7-18) mg/dl Creatinine 0.51 L (0.6-1.2) mg/dl Est Cr Clr Drug Dosing 84.3 ml/min Est GFR ( Amer) 114.5 Est GFR (Non-Af Amer) 98.8 BUN/Creatinine Ratio 10.9 (10-20) Glucose 82 (70-99) mg/dl Calcium 8.1 L (8.5-10.1) mg/dl Magnesium 1.8 (1.8-2.4) mg/dl Total Bilirubin 0.3 (0.2-1) mg/dl AST 13 L (15-37) U/L ALT 13 (12-78) U/L Alkaline Phosphatase 76 (45-117) U/L Total Protein 5.2 L (6.4-8.2) gm/dl Albumin 2.5 L (3.4-5.0) gm/dl Globulin 2.7 (2.5-4.0) gm/dl Albumin/Globulin Ratio 0.9 (0.9-2) Lipase 2362 H (73-393) U/L (1) Pancreatitis Acute pancreatitis complication: unspecified Chronicity: acute Pancreatitis type: unspecified pancreatitis type Qualified Code(s): K85.90 - Acute pancreatitis without necrosis or infection, unspecified
[2021-01-18] MEDS: HYDROCODONE/ACETAMOPHEN 5/325MG TAB PO PRN ×2 (10:18→22:01)
--- NOTE | 2021-01-18 14:54 | Magnetic Resonance Report ---
MR MRCP HISTORY: 70 years-old Female panc lesion, acute panc, fluid collection,assessPD acute generalized ab dominal pain with acute pancreatitis COMPARISON: CT abdomen and pelvis of same day at 3:32 AM TECHNIQUE: MRCP was obtained without the use of IV contrast according to institutional protocol. FINDINGS: Mildly motion degraded exam. Small pleural effusions. Trace pericardial effusion. Small volume of abdominal pelvic ascites with mild generalized body wall edema. The previously descri bed perigastric fluid collections are redemonstrated and better characterized on the CT study of same day. Gastric wall thickening. The spleen and adrenal glands are unremarkable. Cholecystectomy. Intrahepatic and extrahepatic biliar y ductal dilation is redemonstrated with the common bile duct measuring up to approximately 1.4 cm tr ansversely. There is narrowing of the distal common bile duct at the level of the ampulla. No mass or filling defects identified. There is normal caliber of the pancreatic duct. No pancreatic divisum. I nterstitial and peripancreatic edema redemonstrated. Indeterminate 10 x 8 mm T2 hyperintense lesion o f the pancreatic body on image 12 series 4. Mild generalized pancreatic atrophy. IMPRESSION: 1. Cholecystectomy with intrahepatic and extrahepatic biliary ductal dilation. No obstructing biliary mass or choledocholithiasis identified. 2. Acute pancreatitis with small volume of abdominal pelvic ascites. Unchanged appearance of the jonathan gastric fluid collections. 3. 10 x 8 mm T2 hyperintense lesion of the pancreatic body is indeterminate. 4. Small pleural effusions. ACT 112: Negative or not required by law. The above report was generated using voice recognition software. It may contain grammatical, syntax o r spelling errors. Electronically signed by: Calin Bustillo M.D. 01/18/2021 2:53 PM
--- NOTE | 2021-01-18 21:40 | Hospitalist Progress Note ---
Date of Service January 18, 2021 Assessment & Plan (1) Pancreatitis: (2) Leukocytosis: In the setting of known pancreatic lesion Possible malignant pancreatic neoplasm Per GI: She has a known 1 cm panc body lesion, first FNA is acinar cell carcinoma Vs pancreatic neuroendocrine neoplasm. Second FNA atypical cells. Seen by surgery who planned repeat CT scan which is planned for next week. CT A/P: 1. Infiltration adjacent to the pancreatic body and tail suggestive of acute pancreatitis. 7.2 x 3.2 cm perigastric fluid collection along the greater curvature of the stomach. This is likely related to acute pancreatitis and favors an acute peripancreatic fluid collection. A 1 cm peripancreatic hypodense within the pancreatic body is also likely related to acute pancreatitis. No evidence for gland necrosis. Mildly attenuated but patent splenic vein. Associated varices. 2. Wall thickening of the stomach which may be reactive or represent gastritis. 3. Mild dilatation of the common bile duct which may be related to cholecystectomy. This could be correlated with liver function tests. Trace pneumobilia. Based on bowel rest, vigorous IV fluids On hospital day #2 patient experienced worsening abdominal pain Repeat CT abdomen pelvis revealed: 1. Interval decrease in size of the perigastric fluid collection suggestive of an acute peripancreatic fluid collection. Interval decrease in size of this collection could be due to rupture or spontaneous decompression into the st omach. A few additional smaller perigastric fluid collections with gastric fold thickening. 2. Findings consistent with acute pancreatitis. Increase in fluid within the abdomen and pelvis, as described above. No change in the indeterminate 1 cm cystic pancreatic body lesion. 3. Interval increase in biliary ductal dilatation status post cholecystectomy. Pneumobilia. Findings could be correlated with liver function tests. This finding will be called/faxed to the ordering provider at time of dictation. 4. Small bilateral pleural effusions. 5. No bowel obstruction. Colonic diverticulosis without evidence for acute diverticulitis. GI ordered MRCP: 1. Cholecystectomy with intrahepatic and extrahepatic biliary ductal dilation. No obstructing biliary mass or choledocholithiasis identified. 2. Acute pancreatitis with small volume of abdominal pelvic ascites. Unchanged appearance of the perigastric fluid collections. 3. 10 x 8 mm T2 hyperintense lesion of the pancreatic body is indeterminate. 4. Small pleural effusions. Patient requesting to advance diet, soft diet ordered Continue IV LR at 150 cc/h Continue to monitor closely (3) Hypothyroidism: continue levothyroxine (4) Piriformis syndrome: RLE, on prn hydrocodone hold while on IV pain meds (5) Depression: continue lexapro (6) Alcohol use: pt drinks 1 glass of wine daily awss scale, prn lorazepam No signs of overt alcohol withdrawal symptoms (7) DVT prophylaxis: SQ Heparin Q12 Disposition Pending plan of care discussed with patient in detail and at length all questions answered She is understanding, agreeable, comfortable with the plan of care Admission and Anticipated Discharge Date Admission Date: January 16, 2021 Subjective Follow-up for acute pancreatitis, known pancreatic [id number] in progress Seen at the bedside after MRCP Patient very frustrated as she has not had food other than clear liquids for the past couple days Discussed with GI service, may proceed with soft diet cautiously Explained to patient that it may cause her increased pain, advised to eat slowly, and stop if experiencing pain Patient verbalized understanding agreement She reports that her abdominal pain is much better today, no nausea vomiting No chest pain, palpitations, shortness of breath, headache, dizziness, fevers or chills, problems with urination or bowel movement No other symptoms Review of Systems Review of Systems: All systems reviewed & are unremarkable except as noted in Subjective Physical Exam Physical Exam: General- oriented x 3, not in distress, speaks in sentences with no effort or accessory muscle use Eyes- anicteric Neck- no JVD Lungs- clear breath sounds bilaterally, no rales/wheezes Heart- normal rate, regular rhythm; no murmurs Abdomen- normal bowel sounds, nondistended, soft, no tenderness on palpation Extremities- no pretibial edema, no calf tenderness Neuro- alert, oriented x 3; no gross focal neurologic deficits Skin- warm & dry Results & Data Results & Data ([facility]) Vital Signs (Past 12 Hours) Vital Signs Temp Pulse Resp BP Pulse Ox 01/18/21 15:46 37.4 C 75 16 126/74 95 Laboratory Results Laboratory Results - last 24 hr 01/18/21 01/18/21 04:32 04:32 WBC 5.93 RBC 3.21 L Hgb 10.4 L Hct 31.8 L MCV 99.1 MCH 32.4 MCHC 32.7 RDW Std Deviation 48.4 H RDW Coeff of Alfredo 13.5 Plt Count 243 MPV 9.2 Immature Gran % (Auto) 0.2 Neut % (Auto) 60.5 Lymph % (Auto) 23.6 [place] % (Auto) 8.8 Eos % (Auto) 6.7 Baso % (Auto) 0.2 Neut # (Auto) 3.59 Lymph # (Auto) 1.40 [place] # (Auto) 0.52 Eos # (Auto) 0.40 Baso # (Auto) 0.01 Immature Gran # (Auto) 0.01 Sodium 140 Potassium 3.9 Chloride 108 H Carbon Dioxide 28 Anion Gap 4.0 BUN 6 L Creatinine 0.51 L Est Cr Clr Drug Dosing 84.3 Est GFR ( Amer) 114.5 Est GFR (Non-Af Amer) 98.8 BUN/Creatinine Ratio 10.9 Glucose 82 Calcium 8.1 L Magnesium 1.8 Total Bilirubin 0.3 AST 13 L ALT 13 Alkaline Phosphatase 76 Total Protein 5.2 L Albumin 2.5 L Globulin 2.7 Albumin/Globulin Ratio 0.9 Lipase 2362 H (1) Pancreatitis Acute pancreatitis complication: unspecified Chronicity: acute Pancreatitis type: unspecified pancreatitis type Qualified Code(s): K85.90 - Acute pancreatitis without necrosis or infection, unspecified
[2021-01-18] MEDS: MIRTAZAPINE TAB 15 MG TAB PO PRN (22:00)
[2021-01-19] MEDS: LACTATED RINGER'S 1,000 ML IV SCH ×2 (04:10→10:32)
[2021-01-19] MEDS: LEVOTHYROXINE SODIUM 100 MCG TABLET PO SCH (05:27)
[2021-01-19] MEDS: ACETAMINOPHEN 1,000 MG/100 ML VIAL IV SCH ×2 (05:27→13:07)
[2021-01-19 07:47] LABS: Hematocrit (blood only) 31.9 % (37-47); Hemoglobin 10.4 g/dL (12.0-16.0); Mean Corpuscular Hemoglobin 32.2 pg (25-34); Mean Corpuscular Hgb Conc 32.6 g/dL (32-36); Mean Corpuscular Volume 98.8 fL (80-100); Mean Platelet Volume 9.5 fL (7.4-10.4); Platelet Count 238 K/uL (130-400); RDW Coefficient of Variation 13.5 % (11.5-14.5); RDW Standard Deviation 48.9 fL (36.4-46.3); Red Blood Count 3.23 M/uL (4.2-5.4); White Blood Count 6.11 K/uL (4.8-10.8)
[2021-01-19] MEDS: HEPARIN SOD 5,000 UNIT/0.5 ML VIAL SQ SCH (07:57)
[2021-01-19] MEDS: ESCITALOPRAM OXALATE 10 MG TAB PO SCH (07:57)
[2021-01-19] MEDS: PANTOprazole 40 MG TAB PO SCH (07:57)
[2021-01-19 08:05] LABS: Albumin Level 2.5 gm/dl (3.4-5.0); BUN Creatinine Ratio 6.8 (10-20); Calcium 8.9 mg/dl (8.5-10.1); Creatinine Clr Calc Pharmacy 91.5 ml/min; Est GFR (African American) 117.6; Est GFR (Non-African American) 101.5; Potassium 3.8 mmol/L (3.5-5.1)
[2021-01-19 08:10] LABS: Bilirubin,Total 0.4 mg/dl (0.2-1); Globulin 2.5 gm/dl (2.5-4.0)
--- NOTE | 2021-01-19 09:22 | Gastroenterology Progress Note ---
Date of Service January 19, 2021 Assessment & Plan (1) Pancreatitis: 70 year old female admitted w/ abrupt onset upper abd pain w/ nausea/vomiting - elevated lipase, CTAP w/ pancreatic body/tail pancreatitis and 7.2 x 3.2 cm perigastric fluid collection along the greater curvature of the stomach suggestive of acute peripancreatic fluid collection. 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 Second FNA atypical cells. Seen by surgery who planned repeat CT scan which is planned for next week. Now has a 7 cm rim enhancing peripancreatic fluid collection. No signs of Sepsis. WBC normal. Clinically improved this AM, tolerating PO Her pancreatitis could be related to the underlying wilcox lesion. Advance to low fat diet analgesia PRN antiemetics PRN remain ETOH free No GI contraindication to discharge Admission and Anticipated Discharge Date Admission Date: January 16, 2021 Supervising Physician Co-Signing Physician Notes I performed a history and physical examination of the patient today, including specifically on physical exam - soft abdomen. I have discussed the patient's management with the advanced practitioner. Please refer to the nurse practitioner's note for the documented findings and plan of care. Feeling well, tolerated PO diet. Repeat CT scan as OP in 3 weeks. Recall if needed. Subjective Feeling well with diet advancement no pain no nausea/vomiting moving bowels MR w/o acute findings Review of Systems Constitutional: no fever, no chills and no fatigue Respiratory: no cough and no dyspnea Cardiovascular: no chest pain and no dyspnea Gastrointestinal: no abdominal pain, no nausea, no vomiting, no blood in stools and no melena Physical Exam Constitutional: well developed and well nourished; no acute distress and not ill appearing Neck: trachea midline Respiratory: normal respiratory effort, lungs clear to auscultation Cardiovascular: RRR, no murmur, no edema Gastrointestinal (Abdomen): normal bowel sounds, soft, nontender, no hepatosplenomegaly Skin: no rashes, warm and dry Results & Data ([facility]) Vital Signs (Past 12 Hours) Vital Signs Temp Pulse Resp BP Pulse Ox 01/19/21 07:38 36.7 C 74 16 136/74 93 01/18/21 23:00 36.9 C 76 17 121/75 95 Laboratory Results 01/19/21 01/19/21 Range/Units 06:38 06:38 WBC 6.11 (4.8-10.8) K/uL RBC 3.23 L (4.2-5.4) M/uL Hgb 10.4 L (12.0-16.0) g/dL Hct 31.9 L (37-47) % MCV 98.8 (80-100) fL MCH 32.2 (25-34) pg MCHC 32.6 (32-36) g/dL RDW Std Deviation 48.9 H (36.4-46.3) fL RDW Coeff of Alfredo 13.5 (11.5-14.5) % Plt Count 238 (130-400) K/uL MPV 9.5 (7.4-10.4) fL Sodium 142 (136-145) mmol/L Potassium 3.8 (3.5-5.1) mmol/L Chloride 108 H (98-107) mmol/L Carbon Dioxide 29 (21-32) mmol/L Anion Gap 5.0 (3-11) BUN 3 L (7-18) mg/dl Creatinine 0.47 L (0.6-1.2) mg/dl Est Cr Clr Drug Dosing 91.5 ml/min Est GFR ( Amer) 117.6 Est GFR (Non-Af Amer) 101.5 BUN/Creatinine Ratio 6.8 L (10-20) Glucose 79 (70-99) mg/dl Calcium 8.9 (8.5-10.1) mg/dl Total Bilirubin 0.4 (0.2-1) mg/dl AST 10 L (15-37) U/L ALT 16 (12-78) U/L Alkaline Phosphatase 75 (45-117) U/L Total Protein 5.0 L (6.4-8.2) gm/dl Albumin 2.5 L (3.4-5.0) gm/dl Globulin 2.5 (2.5-4.0) gm/dl Albumin/Globulin Ratio 1.0 (0.9-2) Lipase 932 H (73-393) U/L (1) Pancreatitis Acute pancreatitis complication: unspecified Chronicity: acute Pancreatitis type: unspecified pancreatitis type Qualified Code(s): K85.90 - Acute pancreatitis without necrosis or infection, unspecified
--- NOTE | 2021-01-19 11:43 | Hospitalist Progress Note ---
Date of Service January 19, 2021 Assessment & Plan (1) Pancreatitis: Admitted with abdominal pain 70 year old female admitted w/ abrupt onset upper abd pain w/ nausea/vomiting - elevated lipase, CTAP w/ pancreatic body/tail pancreatitis and 7.2 x 3.2 cm perigastric fluid collection along the greater curvature of the stomach suggestive of acute peripancreatic fluid collection. 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 Second FNA atypical cells. Seen by surgery who planned repeat CT scan which is planned for next week. Now has a 7 cm rim enhancing peripancreatic fluid collection. No signs of Sepsis. WBC normal. MRI showed-10 x 8 mm T2 hyperintense lesion of the pancreatic body is indeterminate. Appreciate GI input and recommendation She has been tolerating regular diet and ambulating well She will be discharged home this afternoon and will have a CAT scan of the abdomen as an outpatient for further evaluation of pancreatic lesion (2) Leukocytosis: In the setting of known pancreatic lesion Possible malignant pancreatic neoplasm Resolved (3) Hypothyroidism: continue levothyroxine (4) Piriformis syndrome: RLE, on prn hydrocodone hold while on IV pain meds (5) Depression: continue lexapro (6) Alcohol use: pt drinks 1 glass of wine daily awss scale, prn lorazepam No signs of overt alcohol withdrawal symptoms (7) Severe protein-calorie malnutrition: BMI is 17.5 kg/m body square She has severe protein calorie malnutrition Nutrition assessment and recommendations were given (8) DVT prophylaxis: SQ Heparin Q12 Disposition She will be discharged home this afternoon She will keep her usual appointment with primary care physician within 1 week Nata DUMONT will make an appointment as an outpatient Admission and Anticipated Discharge Date Admission Date: January 16, 2021 Subjective 01/19/2021 The patient was seen and examined in medical floor He has been doing much better and has been tolerating regular diet Denies any abdominal pain, nausea and vomiting still has minimal diarrhea She wants to go home this afternoon Review of Systems Review of Systems: All systems reviewed and are unremarkable except as noted below Gastrointestinal: + diarrhea/loose stools (Tolerated) Physical Exam Physical Exam: Lying in bed comfortably Constitutional: + thin; not ill appearing Eyes: PERRL, conjunctivae normal, anicteric sclerae ENMT: external ear and nose normal, oropharynx normal Neck: trachea midline, no thyromegaly Respiratory: normal respiratory effort; no respiratory distress Auscultation: lungs clear to auscultation bilaterally Cardiovascular: Rate/Rhythm: regular rate and regular rhythm Heart Sounds: no murmur Extremities: no edema Gastrointestinal (Abdomen): Inspection/Auscultation: normal bowel sounds; abdomen not distended Percussion/Palpation: abdomen soft; abdomen nontender Musculoskeletal: No acute arthritis in any joint Neurologic: Alert, awake and oriented x3. No focal sensory deficit appreciated Psychiatric: A+Ox3, euthymic affect Lymphatic: no cervical or axillary lymphadenopathy Results & Data Results & Data ([facility]) Vital Signs (Past 12 Hours) Vital Signs Temp Pulse Resp BP Pulse Ox 01/19/21 07:38 36.7 C 74 16 136/74 93 Laboratory Results Short CBC 01/19/21 Range/Units 06:38 WBC 6.11 (4.8-10.8) K/uL Hgb 10.4 L (12.0-16.0) g/dL Hct 31.9 L (37-47) % Plt Count 238 (130-400) K/uL BMP 01/19/21 06:38 Sodium 142 Potassium 3.8 Chloride 108 H Carbon Dioxide 29 BUN 3 L Creatinine 0.47 L Glucose 79 Calcium 8.9 Liver Function 01/19/21 Range/Units 06:38 Total Bilirubin 0.4 (0.2-1) mg/dl AST 10 L (15-37) U/L ALT 16 (12-78) U/L Alkaline Phosphatase 75 (45-117) U/L Albumin 2.5 L (3.4-5.0) gm/dl Diagnostic Findings CT A/P: 1. Infiltration adjacent to the pancreatic body and tail suggestive of acute pancreatitis. 7.2 x 3.2 cm perigastric fluid collection along the greater curvature of the stomach. This is likely related to acute pancreatitis and favors an acute peripancreatic fluid collection. A 1 cm peripancreatic hypodense within the pancreatic body is also likely related to acute pancreatitis. No evidence for gland necrosis. Mildly attenuated but patent splenic vein. Associated varices. 2. Wall thickening of the stomach which may be reactive or represent gastritis. 3. Mild dilatation of the common bile duct which may be related to cholecystectomy. This could be correlated with liver function tests. Trace pneumobilia. Based on bowel rest, vigorous IV fluids On hospital day #2 patient experienced worsening abdominal pain Repeat CT abdomen pelvis revealed: 1. Interval decrease in size of the perigastric fluid collection suggestive of an acute peripancreatic fluid collection. Interval decrease in size of this collection could be due to rupture or spontaneous decompression into the stomach. A few additional smaller perigastric fluid collections with gastric fold thickening. 2. Findings consistent with acute pancreatitis. Increase in fluid within the abdomen and pelvis, as described above. No change in the indeterminate 1 cm cystic pancreatic body lesion. 3. Interval increase in biliary ductal dilatation status post cholecystectomy. Pneumobilia. Findings could be correlated with liver function tests. This f inding will be called/faxed to the ordering provider at time of dictation. 4. Small bilateral pleural effusions. 5. No bowel obstruction. Colonic diverticulosis without evidence for acute diverticulitis. GI ordered MRCP: 1. Cholecystectomy with intrahepatic and extrahepatic biliary ductal dilation. No obstructing biliary mass or choledocholithiasis identified. 2. Acute pancreatitis with small volume of abdominal pelvic ascites. Unchanged appearance of the perigastric fluid collections. 3. 10 x 8 mm T2 hyperintense lesion of the pancreatic body is indeterminate. 4. Small pleural effusions. Medications Administered Current Inpatient Medications Acetaminophen (Acetaminophen 325 Mg Tab) 650 mg PO Q4H PRN PRN Reason: pain/fever Stop: 02/15/21 18:48 Hydrocodone Bitart/Acetaminophen (Hydrocodone/Acetamophen 5/325mg Tab) 1 tab PO Q8 PRN PRN Reason: Pain Stop: 01/30/21 18:48 Last Admin: 01/18/21 22:01 Dose: 1 tab Documented by: Escitalopram Oxalate (Escitalopram Oxalate 10 Mg Tab) 10 mg PO DAILY LILY Stop: 02/16/21 08:59 Last Admin: 01/19/21 07:57 Dose: 10 mg Documented by: Heparin Sodium (Porcine) (Heparin Sod 5,000 Unit/0.5 Ml Vial) 5,000 units SQ Q12 LILY Stop: 02/15/21 20:59 Last Admin: 01/19/21 07:57 Dose: 5,000 units Documented by: Hydroxyzine HCl (Hydroxyzine Hcl 25 Mg Tab) 25 mg PO Q6 PRN PRN Reason: Anxiety Stop: 02/15/21 18:48 Acetaminophen (Ofirmev) 1,000 mg in 100 mls @ 400 mls/hr IV Q8H LILY Stop: 01/19/21 19:59 Last Infusion: 01/19/21 05:45 Dose: Infused Documented by: Lactated Ringer's (Lr) 1,000 mls @ 150 mls/hr IV .[id number] [facility] Stop: 02/15/21 18:48 Last Admin: 01/19/21 10:32 Dose: 200 mls/hr Documented by: Levothyroxine Sodium (Levothyroxine Sodium 100 Mcg Tablet) 100 mcg PO DAILYBB [facility] Stop: 02/16/21 06:29 Last Admin: 01/19/21 05:27 Dose: 100 mcg Documented by: Lorazepam (Lorazepam 1 Mg Tab) 1 mg PO ONE PRN; Protocol PRN Reason: EtoH Withdrawal AWSS 6-10 Mirtazapine (Mirtazapine Tab 15 Mg Tab) 30 mg PO HS PRN PRN Reason: Sleep Stop: 02/15/21 18:48 Last Admin: 01/18/21 22:00 Dose: 30 mg Documented by: Morphine Sulfate (Morphine Sulfate 2 Mg/Ml Carp) 2 mg IV Q4H PRN PRN Reason: severe pain Stop: 01/30/21 18:48 Last Admin: 01/18/21 02:51 Dose: 2 mg Documented by: Ondansetron HCl (Ondansetron Inj 2 Mg/Ml 2 Ml Vial) 4 mg IV Q6H PRN PRN Reason: Nausea Stop: 02/15/21 18:48 (1) Pancreatitis Acute pancreatitis complication: unspecified Chronicity: acute Pancreatitis type: unspecified pancreatitis type Qualified Code(s): K85.90 - Acute pancreatitis without necrosis or infection, unspecified
--- NOTE | 2021-01-20 07:39 | Discharge Summary ---
Date of Service January 20, 2021 Admission HPI Per Admitting Provider This is a 70-year-old female who has significant past medical history of hypothyroidism, IBS, depression, idiopathic neuropathy, piriformis syndrome, history of syncope and collapse, orthostatic hypotension who presents ED secondary to abdominal pain that started at 2 AM. Pain is located on left side of abdomen, constant, nonradiating, made worse with movement and walking, improved with lying still. She did try heat and Tylenol with minimal relief. Pain persisted and she opted to present to ED. Pain came on rather abruptly. When pain first came on she felt nauseated and vomited x1. She denies any bilious emesis or hematemesis. She had a normal BM today. No melena or hematochezia. She denies recent fever, chills, sweats, lightheadedness, dizziness, syncope, chest pain, shortness with, cough, URI symptoms, diarrhea, dysuria, increased urgency or frequency with urination. She denies having similar symptoms in past. Of significance 09/2020 patient did undergo acute cholecystectomy. During that time she also underwent ERCP which showed dilated CBD with sludge and a CBD stent was placed. She also had incidental 8 mm lesion identified in the pancreatic body. [place] like possible neuroendocrine tumor and FNA was performed. Pathology revealed rare atypical cells. Follows [facility]. In ED patient CBC revealed mild leukocytosis of 12.55k, H&H 12.8 and 37.4, platelet 279, LFTs WNL, lipase 4139. CT abdomen pelvis revealed Infiltration adjacent to the pancreatic body and tail suggestive of acute pancreatitis. 7.2 x 3.2 cm perigastric fluid collection along the greater curvature of stomach likely related to the acute pancreatitis. A 1 cm peripancreatic hypodense lesion within the pancreatic body also likely related to acute pancreatitis. Wall thickening of stomach which may represent active or gastritis. She received 2 L of IVF while in ED. Admission Exam Per Admitting Provider Physical Exam: Constitutional: WD/WN, vitals as above, NAD, sitting up in bed, pleasant, conversing easily Head: Normocephalic, Atraumatic Eyes: PERRL, conjunctivae normal, anicteric sclerae ENMT: external ear and nose normal, oropharynx normal Neck: trachea midline, no thyromegaly normal visual inspection Respiratory: normal respiratory effort, lungs clear to auscultation, no wheeze, rales, rhonchi. Normal insp/exp effort, no accessory muscle use Cardiovascular: RRR, no murmur, no edema Vessels: no JVD or carotid bruit Chest: normal inspection of chest Abdomen: normal bowel sounds, soft, nontender, no hepatosplenomegaly Musculoskeletal: no cyanosis or clubbing, extremities motor strength 5/5 Skin: no rashes, warm and dry normal turgor Neurologic: PERRL, EOMI, accommodation nl, no face palsy, no dysarthria CN's II-XI intact bilaterally and moves all extremities Psychiatric: A+Ox3, euthymic affect Lymphatic: no cervical or axillary lymphadenopathy : deferred Principal Diagnosis Acute pancreatitis, 10 x 8 mm deep to hyperdense lesion of the body of the pancreas, hypothyroidism, depression Discharge Exam Constitutional + thin; not ill appearing Eyes PERRL, conjunctivae normal, anicteric sclerae ENMT external ear and nose normal, oropharynx normal Neck trachea midline, no thyromegaly Respiratory normal respiratory effort; no respiratory distress Auscultation: lungs clear to auscultation bilaterally Cardiovascular Rate/Rhythm: regular rate and regular rhythm Heart Sounds: no murmur Extremities: no edema Gastrointestinal (Abdomen) Inspection/Auscultation: normal bowel sounds; abdomen not distended Percussion/Palpation: abdomen soft; abdomen nontender Psychiatric A+Ox3, euthymic affect Lymphatic no cervical or axillary lymphadenopathy Discharge Data Allergies Allergy/AdvReac Type Severity Reaction Status Date / Time bupropion AdvReac Unknown Verified 01/16/21 17:05 diclofenac AdvReac Unknown Verified 01/16/21 17:05 sertraline [From Zoloft] AdvReac Unknown Verified 01/16/21 17:05 Consultations 01/16/21 16:37 ED Decision to Admit Stat 01/16/21 17:11 Consult Gastroenterology Routine Ordered Studies 01/16/21 14:45 CT abd pelvis IV con only Stat 01/18/21 03:01 CT abd pelvis IV con only Urgent 01/18/21 10:20 MR MRCP Routine Hospital Course (1) Pancreatitis: abdominal pain improved no tenderness on exam lipase improving continue clears, IV fluids plan on soft diet tomorrow in AM if pain still improving (2) Leukocytosis: In the setting of known pancreatic lesion Possible malignant pancreatic neoplasm Resolved (3) Hypothyroidism: continue levothyroxine (4) Piriformis syndrome: RLE, on prn hydrocodone hold while on IV pain meds (5) Depression: continue lexapro (6) Alcohol use: pt drinks 1 glass of wine daily awss scale, prn lorazepam No signs of overt alcohol withdrawal symptoms (7) DVT prophylaxis: SQ Heparin Q12 Disposition pending plan of care discussed with patient in detail all questions answered she is understanding, agreeable, comfortable with the plan of care Total Time Total Time Spent Total Time Spent (In Minutes): 35 minutes Total Time Includes: Examination of the Patient, Discharge Planning, Medication Reconciliation and Communication With Other Providers Discharge Plan Discharge Items Patient Disposition: Home - Self-Care Reason For Visit: ACUTE PANCREATITIS Discharge Diagnosis: Acute pancreatitis, 10 x 8 mm deep to hyperdense lesion of the body of the pancreas, hypothyroidism, depression Condition on Discharge: Good Activity: Resume your previous activity Non-emergency contact: Primary Care Provider Call non-emergency contact if: you have any medication questions and your symptoms worsen Follow-up/Referrals: Kalie Vitale D.O. [Primary Care Provider] - (Please keep appointment with your primary care physician as scheduled) Diet: Low Fat Addtl Attending Provider Instructions: Please try to have small amount of food at one time Nata DUMONT will call with an appointment as an outpatient Your CT scan as an outpatient will be rescheduled Pending Studies at Discharge: No Stand-Alone Forms: [employer] [facility], Smoking Cessation Medications and DC Order Prescriptions: Continued cyanocobalamin (vitamin B-12) [Vitamin B-12] 1,000 mcg Tablet 1,000 mcg PO PM RF: 0 folic acid 1 mg Tablet 1 mg PO PM RF: 0 hydrocodone-acetaminophen 5-325 mg tablet 1 tab PO Q8 PRN (Reason: Pain) RF: 0 acetaminophen 325 mg Tablet 650 mg PO Q6H PRN (Reason: pain) Qty: 30 RF: 0 levothyroxine 100 mcg tablet 100 mcg PO DAILY RF: 0 zinc sulfate 220 mg tablet 220 mg PO DAILY RF: 0 ascorbic acid (vitamin C) [Vitamin C] 250 mg Tablet 250 mg PO DAILY RF: 0 hydroxyzine HCl 25 mg tablet 25 - 50 mg PO Q6 PRN (Reason: Anxiety) RF: 0 escitalopram oxalate 10 mg tablet 10 mg PO DAILY RF: 0 cholecalciferol (vitamin D3) [Vitamin D3] 25 mcg (1,000 unit) Tablet 2,000 mcg PO DAILY RF: 0 mirtazapine 30 mg Tablet 30 mg PO HS PRN (Reason: Sleep) RF: 0 Discharge Orders: Discharge Order (Routine); Ordered 01/19/21 Ordered By: Sandra Mathis Admission Data Admit Date/Time: 01/16/21 17:11 Attending Provider: Sandra Mathis Admit Provider: Dameon Sainz Primary Care Provider: Kalie Vitale Other Providers: Ayan Mata ; Evert Rush ; Dameon Sainz Other Interventions: Discharge Summary Assessment (RN) Last Done: 01/19/21 14:08
== END 2021-01-19 15:59 | disposition home or self-care (01) ==
LOC: ED 14:31 → 3N 17:11 → SUATTDRO 17:11 → 3N 18:34